=== PATIENT | female | born 1935 | race African-American/Black ===

== ENCOUNTER 2016-08-18 19:34 | Inpatient (IN) | payer MEDICARE, MEDICAID ==
--- NOTE | 2016-08-18 20:04 | ER Document Report ---
ED General - General Stated Complaint: ALTERED MENTAL STATUS Time seen by provider: 20:01 Information source: Emergency Med Personnel TRAVEL OUTSIDE OF THE [place] IN LAST 30 DAYS: No - HPI Patient complains to provider of: altered mental status Onset: This evening Onset/Duration: Persistent Associated symptoms: None Notes: Patient is an 81-year-old female sent from [facility] for change in mental status that was noted this evening, patient has a history of dementia and is nonverbal and cannot provide any further details - Related Data Allergies/Adverse Reactions: No Known Allergies Allergy (Verified 10/25/13 10:00) Past Medical History - General Information source: Emergency Med Personnel - Social History Smoking Status: Unknown if Ever Smoked Family History: Reviewed & Not Pertinent Pulmonary Medical History: Denies: Hx Tuberculosis Neurological Medical History: Denies: Hx Seizures Endocrine Medical History: Reports: Hx Diabetes Mellitus Type 2 Musculoskeltal Medical History: Reports Hx Arthritis Psychiatric Medical History: Reports: Hx Dementia, Hx Depression Past Surgical History: Reports: Hx Hysterectomy - Immunizations Hx Diphtheria, Pertussis, Tetanus Vaccination: No Review of Systems - Review of Systems -: Yes ROS unobtainable due to patient's medical condition Physical Exam - Vital signs Vitals: Pulse Resp BP Pulse Ox 140 H 23 H 167/109 H 96 08/18/16 19:50 08/18/16 19:50 08/18/16 19:50 08/18/16 19:50 Interpretation: Hypertensive, Tachycardic - General In distress: None - HEENT Head: Normocephalic, Atraumatic Eyes: Normal Conjunctiva: Normal Eyelashes: Normal Pupils: PERRL Mucous membranes: Dry - Respiratory Respiratory status: No respiratory distress Chest status: Nontender Breath sounds: Normal Chest palpation: Normal - Cardiovascular Rhythm: Regular, Tachycardia - Abdominal Inspection: Normal Distension: No distension Bowel sounds: Normal Tenderness: Nontender Organomegaly: No organomegaly - Back Back: Normal - Extremities General upper extremity: Normal inspection General lower extremity: Edema - Neurological [place] Coma Scale Eye Opening: Spontaneous [place] Coma Scale Verbal: None [place] Coma Scale Motor: Withdraws to Pain [place] Coma Scale Total: 9 - Skin Skin Temperature: Warm Skin Moisture: Dry Skin Color: Normal Course - Re-evaluation Re-evalutation: 08/19/16 02:48 Patient vital signs improved, she was able to answer 1 question on evaluation, she has good perfusion to extremities at this point in time, she has been admitted to the hospitalist service for sepsis, likely from a urinary tract infection - Vital Signs Vital signs: Temp Pulse Resp BP Pulse Ox 97.5 F 140 H 24 H 134/68 H 95 08/18/16 20:27 08/18/16 19:50 08/19/16 04:01 08/19/16 04:01 08/19/16 02:01 - Laboratory Result Diagrams: 08/19/16 02:54 08/19/16 02:54 Laboratory results interpreted by me: 08/18/16 08/18/16 08/18/16 20:48 21:38 21:38 WBC 19.0 H RDW 14.1 H Seg Neuts % (Manual) 94 H Lymphocytes % (Manual) 2 L Monocytes % (Manual) 1 L Abs Neuts (Manual) 18.4 H Abs Lymphs (Manual) 0.4 L VBG pH Sodium 145.5 H Glucose 276 H Lactic Acid Alkaline Phosphatase 144 H Urine Protein >=500 H Urine Glucose (UA) 150 H Urine Ketones TRACE H Urine Blood SMALL H Urine Urobilinogen 2.0 H Ur Leukocyte Esterase LARGE H 08/18/16 08/18/16 21:38 21:38 WBC RDW Seg Neuts % (Manual) Lymphocytes % (Manual) Monocytes % (Manual) Abs Neuts (Manual) Abs Lymphs (Manual) VBG pH 7.23 L Sodium Glucose Lactic Acid 7.2 H Alkaline Phosphatase Urine Protein Urine Glucose (UA) Urine Ketones Urine Blood Urine Urobilinogen Ur Leukocyte Esterase - Diagnostic Test Radiology reviewed: Image reviewed, Reports reviewed - EKG Interpretation by Me EKG shows normal: Sinus rhythm Rate: Tachycardia [place]/QRS: LAHB/LAFB When compared to previous EKG there are: No significant change Critical Care Note - Critical Care Note Total time excluding time spent on procedures (mins): 60 Comments: Patient arrived with signs and symptoms consistent with sepsis, tachycardic, workup consistent with sepsis, requiring admission to the [facility] Discharge - Discharge Clinical Impression: Sepsis Qualifiers: Sepsis type: sepsis due to unspecified organism Qualified Code(s): A41.9 - Sepsis, unspecified organism Urinary tract infection Qualifiers: Urinary tract infection type: site unspecified Hematuria presence: without hematuria Qualified Code(s): N39.0 - Urinary tract infection, site not specified Condition: Serious Disposition: ADMITTED INPATIENT Admitting Provider: Hospitalist Unit Admitted: [facility]
[2016-08-18] MEDS ORDERED: NORMAL SALINE 1000 ML 1,000 ML IV PRN ×3 (20:31→22:54)
[2016-08-18 21:15] LABS: APPEARANCE,URINE CLOUDY; BILIRUBIN,URINE NEGATIVE (NEGATIVE); GLUCOSE, URINE 150 mg/dL (NEGATIVE); KETONES,URINE TRACE mg/dL (NEGATIVE); LEUKOCYTE ESTERASE,URINE LARGE (NEGATIVE); NITRITE,URINE NEGATIVE (NEGATIVE); PROTEIN,URINE >=500 mg/dL (NEGATIVE)
--- NOTE | 2016-08-18 21:49 | EKG REPORT ---
SEVERITY:- ABNORMAL ECG - SINUS TACHYCARDIA VENTRICULAR PREMATURE COMPLEX LEFT ANTERIOR FASCICULAR BLOCK NONSPECIFIC T ABNORMALITIES, LATERAL LEADS : Confirmed by: Aj Lopez 18-Aug-2016 21:48:39
[2016-08-18 21:53] LABS: VENOUS BLOOD BASE EXCESS -6.9 mmol/L; VENOUS BLOOD HCO3 20.9 mmol/L (20-32); VENOUS BLOOD PCO2 50.7 mmHg (35-63); VENOUS BLOOD PH 7.23 (7.30-7.42)
[2016-08-18] MEDS ORDERED: LEVOFLOXACIN 750 MG/D5W RTU 150 ML IV ONE (21:56)
[2016-08-18 22:05] LABS: HEMATOCRIT 39.9 % (36.0-47.0); HEMOGLOBIN 13.1 g/dL (12.0-15.5); HGB HCT DIFFERENCE -0.6; MEAN CORPUSCULAR HEMOGLOBIN 28.4 pg (27.0-33.4); MEAN CORPUSCULAR VOLUME 86 fl (80-97); RED BLOOD COUNT 4.63 10^6/uL (3.72-5.28); RED CELL DISTRIBUTION WIDTH 14.1 % (11.5-14.0)
[2016-08-18 22:09] LABS: ALANINE AMINOTRANSFERASE 24 U/L (9-52); ALKALINE PHOSPHATASE 144 U/L (38-126); ANION GAP 17 (5-19); ASPARTATE AMINO TRANSFERASE 31 U/L (14-36); BILIRUBIN,TOTAL 1.1 mg/dL (0.2-1.3); BLOOD UREA NITROGEN 19 mg/dL (7-20); CALCIUM 9.6 mg/dL (8.4-10.2); CARBON DIOXIDE 23 mmol/L (22-30); CHLORIDE 106 mmol/L (98-107); CREATINE KINASE 64 U/L (30-135); CREATININE RESULT 0.71 mg/dL (0.52-1.25); GLUCOSE 276 mg/dL (75-110); POTASSIUM 3.7 mmol/L (3.6-5.0); SODIUM 145.5 mmol/L (137-145); TOTAL PROTEIN 7.2 g/dL (6.3-8.2)
[2016-08-18 22:17] LABS: BAND NEUTROPHILS % (MANUAL) 3 % (3-5); BASOPHILS % (MANUAL) 0 % (0-2); EOSINOPHILS % (MANUAL) 0 % (0-6); LYMPHOCYTES % (MANUAL) 2 % (13-45); TOTAL CELLS COUNTED 100
[2016-08-18 22:18] LABS: ANISOCYTOSIS SLIGHT; PLATELET CLUMPS PRESENT; RBC MORPHOLOGY COMMENT NORMO-CYTIC/CHROMIC
[2016-08-18 22:21] LABS: CREATINE KINASE MB 3.75 ng/mL (<4.55)
[2016-08-18 22:29] LABS: TROPONIN I 0.899 ng/mL
[2016-08-18] MEDS ORDERED: BISACODYL 10 MG SUPP.RECT PR SCH (23:45)
[2016-08-18] MEDS ORDERED: POLYVINYL ALCOHOL 1.4% OPH SOLN 15 ML OU PRN (23:46)
[2016-08-18] MEDS ORDERED: ACETAMINOPHEN 650 MG SUPP.RECT PR PRN (23:47)
[2016-08-19 03:06] LABS: HEMATOCRIT 37.4 % (36.0-47.0); HEMOGLOBIN 12.2 g/dL (12.0-15.5); HGB HCT DIFFERENCE -0.8; MEAN CORPUSCULAR HEMOGLOBIN 28.2 pg (27.0-33.4); MEAN CORPUSCULAR HGB CONC 32.7 g/dL (32.0-36.0); MEAN CORPUSCULAR VOLUME 86 fl (80-97); RED BLOOD COUNT 4.35 10^6/uL (3.72-5.28); RED CELL DISTRIBUTION WIDTH 14.1 % (11.5-14.0); WHITE BLOOD COUNT 17.3 10^3/uL (4.0-10.5)
[2016-08-19 03:25] LABS: ANION GAP 15 (5-19); BLOOD UREA NITROGEN 17 mg/dL (7-20); CALCIUM 8.7 mg/dL (8.4-10.2); CARBON DIOXIDE 21 mmol/L (22-30); CHLORIDE 110 mmol/L (98-107); CREATININE RESULT 0.62 mg/dL (0.52-1.25); GLUCOSE 251 mg/dL (75-110); POTASSIUM 3.9 mmol/L (3.6-5.0); SODIUM 145.7 mmol/L (137-145)
[2016-08-19 03:27] LABS: BAND NEUTROPHILS % (MANUAL) 2 % (3-5); BASOPHILS % (MANUAL) 0 % (0-2); EOSINOPHILS % (MANUAL) 0 % (0-6); LYMPHOCYTES % (MANUAL) 2 % (13-45); TOTAL CELLS COUNTED 100
[2016-08-19 03:30] LABS: TOXIC GRANULATION 1+
[2016-08-19 03:31] LABS: ANISOCYTOSIS SLIGHT
[2016-08-19] MEDS: NORMAL SALINE 1000 ML 1,000 ML IV SCH ×2 (04:45→09:54)
--- NOTE | 2016-08-19 07:28 | PDOC H&P ---
History of Present Illness Admission Date/PCP: 08/18/16 23:47 BITA MEANS Patient complains of: Altered mental status History of Present Illness: J[address] is a 81 year old female with a history of advanced dementia and nonverbal at baseline in bedbound state, noted by custodial staff to have altered mental status brought to the emergency room for evaluation she's found to have leukocytosis, fever, hypotension and a UA suggestive of urinary tract infection. She is nonverbal unable to provide history. She is started on empiric antibiotics IV fluids referred to the hospitalist for admission CODE STATUS verified to be DO NOT RESUSCITATE Past Medical History Pulmonary Medical History: Denies: Tuberculosis Neurological Medical History: Denies: Seizures Endocrine Medical History: Reports: Diabetes Mellitus Type 2 Musculoskeltal Medical History: Reports: Arthritis Psychiatric Medical History: Reports: Dementia, Depression Past Surgical History Past Surgical History: Reports: Hysterectomy Social History Information Source: REPLACED BY [facility] Records Smoking Status: Unknown if Ever Smoked Frequency of Alcohol Use: None Hx Recreational Drug Use: No Hx Prescription Drug Abuse: No - Advance Directive Resuscitation Status: Do Not Resuscitate Family History Family History: Other - Unobtainable Parental Family History Reviewed: No - unobtainable Children Family History Reviewed: NA Sibling(s) Family History Reviewed.: NA Medication/Allergy Home Medications: Bisacodyl [Dulcolax 10 mg Supp.rect] 10 mg NE DAILYP #0 supp.rect 06/16/14 Cyanocobalamin (Vitamin B-12) [Vitamin B-12 SL 2500 mcg Tablet] 2,500 mcg SL DAILY #0 tab.subl 06/16/14 Docusate Sodium [Colace 100 mg Capsule] 100 mg PO BID #0 capsule 06/16/14 Folic Acid [Folvite 1 mg Tablet] 1 mg PO DAILY #0 tablet 06/16/14 Glyburide [Diabeta 2.5 mg Tablet] 2.5 mg PO AC #0 tablet 06/16/14 Insulin Lispro [Humalog Insulin (Lispro) 100 unit/mL] 0 unit SUBCUT ACHSP PRN # 0 unit 06/16/14 Lansoprazole [Prevacid 30 mg Odt Tablet] 30 mg PO BIDACBS #0 tab.rap.dr Mirtazapine [Remeron 15 mg Tablet] 7.5 mg PO QHS #0 tablet 06/16/14 Polyvinyl Alcohol [Liquitears 1.4% Ophth Soln 15 ml] 1 drop OU QIDP PRN #0 bottle 06/16/14 Allergies/Adverse Reactions: No Known Allergies Allergy (Verified 10/25/13 10:00) Review of Systems ROS unobtainable: Due to mental status Physical Exam Vital Signs: Temp Pulse Resp BP Pulse Ox 97.5 F 140 H 25 H 145/97 H 95 08/18/16 20:27 08/18/16 19:50 08/19/16 07:01 08/19/16 07:01 08/19/16 02:01 General appearance: PRESENT: disheveled, mild distress, thin Head exam: PRESENT: atraumatic, normocephalic Eye exam: PRESENT: conjunctiva pink, EOMI, PERRLA. ABSENT: scleral icterus Ear exam: PRESENT: normal external ear exam Mouth exam: PRESENT: dry mucosa Neck exam: ABSENT: carotid bruit, JVD, lymphadenopathy, thyromegaly Respiratory exam: PRESENT: clear to auscultation lucy. ABSENT: rales, rhonchi, wheezes Cardiovascular exam: PRESENT: RRR. ABSENT: diastolic murmur, rubs, systolic murmur Pulses: PRESENT: normal dorsalis pedis pul Vascular exam: PRESENT: normal capillary refill GI/Abdominal exam: PRESENT: normal bowel sounds, soft. ABSENT: distended, guarding, mass, organolmegaly, rebound, tenderness Rectal exam: PRESENT: deferred Extremities exam: PRESENT: +1 edema, other - Severe peripheral vascular disease with chronic changes with feet in extensor contraction Musculoskeletal exam: PRESENT: other - Bilateral ankle deformity Neurological exam: PRESENT: altered. ABSENT: oriented to person, oriented to place, oriented to time, CN II-XII grossly intact Psychiatric exam: PRESENT: appropriate affect, normal mood. ABSENT: homicidal ideation, suicidal ideation Skin exam: PRESENT: dry, intact, warm. ABSENT: cyanosis, rash Results Laboratory Results: 08/19/16 02:54 08/19/16 02:54 08/19/16 08/19/16 08/19/16 02:54 02:54 02:54 WBC 17.3 H RBC 4.35 Hgb 12.2 Hct 37.4 MCV 86 MCH 28.2 MCHC 32.7 RDW 14.1 H Plt Count 153 Seg Neutrophils % Not Reportable Lymphocytes % Not Reportable Monocytes % Not Reportable Eosinophils % Not Reportable Basophils % Not Reportable Absolute Neutrophils Not Reportable Absolute Lymphocytes Not Reportable Absolute Monocytes Not Reportable Absolute Eosinophils Not Reportable Absolute Basophils Not Reportable Sodium 145.7 H Potassium 3.9 Chloride 110 H Carbon Dioxide 21 L Anion Gap 15 BUN 17 Creatinine 0.62 Est GFR ( Amer) > 60 Est GFR (Non-Af Amer) > 60 Glucose 251 H Lactic Acid 6.0 H Calcium 8.7 Impressions: Chest X-Ray 08/18/16 19:47 IMPRESSION: NO ACUTE RADIOGRAPHIC FINDING IN THE CHEST. Assessment & Plan - Diagnosis (1) Sepsis Qualifiers: Sepsis type: sepsis due to unspecified organism Qualified Code(s): A41.9 - Sepsis, unspecified organism Is this a current diagnosis for this admission?: YesPlan: Secondary to UTI, possible bacteremia blood and urine cultures pending empiric antibiotics IV fluid challenge and supportive measures (2) Urinary tract infection Qualifiers: Urinary tract infection type: site unspecified Hematuria presence: without hematuria Qualified Code(s): N39.0 - Urinary tract infection, site not specified Is this a current diagnosis for this admission?: YesPlan: Please see #1 (3) ARF (acute renal failure) Is this a current diagnosis for this admission?: YesPlan: Secondary to sepsis please see #1 attempt to correct the underlying cause with reevaluate chemistry avoiding nephrotoxic meds and doses (4) Dementia Qualifiers: Dementia type: Alzheimer's disease Is this a current diagnosis for this admission?: YesPlan: End-stage dementia doubting significant benefit of aggressive measures strongly consider comfort measures only if lack of improvement over the next 24 hours - Time Time Spent: 50 to 70 Minutes
[2016-08-19] MEDS: CEFTRIAXONE 1 GM/D5W RTU 1 GM/50 ML RTUPB IV SCH ×2 (09:53→15:02)
[2016-08-19] MEDS: DOCUSATE SODIUM 100 MG CAPSULE PO SCH ×3 (09:55→15:02)
[2016-08-19] MEDS ORDERED: DEXTROSE 40% GEL 15 GM TUBE PO PRN ×2 (13:50)
[2016-08-19] MEDS ORDERED: DEXTROSE 50%-WATER 25 GM/50 ML DISP.SYRIN IV PRN ×2 (13:50)
[2016-08-19] MEDS ORDERED: GLUCAGON,HUMAN RECOMB 1 MG INJ IM PRN (13:50)
--- NOTE | 2016-08-19 13:50 | PDOC PROGRESS REPORT ---
Subjective Progress Note for:: 08/19/16 Subjective:: Patient will open her eyes but will not respond in any way. Physical Exam Vital Signs: Temp Pulse Resp BP Pulse Ox 98.5 F 100 14 131/81 H 98 08/19/16 12:08 08/19/16 12:08 08/19/16 12:08 08/19/16 12:08 08/19/16 12:08 Intake & Output 08/18/16 08/19/16 08/20/16 06:59 06:59 06:59 Output Total 1100 Balance -1100 Weight 61.1 kg General appearance: PRESENT: no acute distress Eye exam: PRESENT: conjunctiva pink. ABSENT: scleral icterus Mouth exam: PRESENT: dry mucosa Neck exam: ABSENT: carotid bruit, JVD, lymphadenopathy, thyromegaly Respiratory exam: PRESENT: clear to auscultation lucy. ABSENT: rales, rhonchi, wheezes Cardiovascular exam: PRESENT: RRR. ABSENT: diastolic murmur, rubs, systolic murmur GI/Abdominal exam: PRESENT: normal bowel sounds, soft. ABSENT: distended, guarding, mass, organolmegaly, rebound, tenderness Extremities exam: ABSENT: calf tenderness, clubbing Neurological exam: PRESENT: altered Psychiatric exam: PRESENT: flat affect Skin exam: PRESENT: dry, intact, warm. ABSENT: cyanosis, rash Results Laboratory Results: 08/19/16 02:54 08/19/16 02:54 08/19/16 08/19/16 08/19/16 02:54 02:54 02:54 WBC 17.3 H RBC 4.35 Hgb 12.2 Hct 37.4 MCV 86 MCH 28.2 MCHC 32.7 RDW 14.1 H Plt Count 153 Seg Neutrophils % Not Reportable Lymphocytes % Not Reportable Monocytes % Not Reportable Eosinophils % Not Reportable Basophils % Not Reportable Absolute Neutrophils Not Reportable Absolute Lymphocytes Not Reportable Absolute Monocytes Not Reportable Absolute Eosinophils Not Reportable Absolute Basophils Not Reportable Sodium 145.7 H Potassium 3.9 Chloride 110 H Carbon Dioxide 21 L Anion Gap 15 BUN 17 Creatinine 0.62 Est GFR ( Amer) > 60 Est GFR (Non-Af Amer) > 60 Glucose 251 H Lactic Acid 6.0 H Calcium 8.7 Impressions: Chest X-Ray 08/18/16 19:47 IMPRESSION: NO ACUTE RADIOGRAPHIC FINDING IN THE CHEST. Assessment & Plan - Diagnosis (1) Sepsis Qualifiers: Sepsis type: sepsis due to unspecified organism Qualified Code(s): A41.9 - Sepsis, unspecified organism Is this a current diagnosis for this admission?: YesPlan: Patient has sepsis most likely from a urinary tract infection. She is a DO NOT RESUSCITATE however we'll continue IV fluids and IV antibiotics. (2) Urinary tract infection Qualifiers: Urinary tract infection type: site unspecified Hematuria presence: without hematuria Qualified Code(s): N39.0 - Urinary tract infection, site not specified Is this a current diagnosis for this admission?: YesPlan: Patient is growing gram-negative rods from a urine culture. Will continue with the Rocephin. (3) ARF (acute renal failure) Is this a current diagnosis for this admission?: YesPlan: Creatinine has normalized. (4) Diabetes Is this a current diagnosis for this admission?: YesPlan: We'll continue with fingerstick blood sugars as well as sliding scale insulin. (5) Dementia Qualifiers: Dementia type: Alzheimer's disease Is this a current diagnosis for this admission?: YesPlan: Patient is nonverbal at baseline. - Time Time Spent with patient: 25-34 minutes - Inpatient Certification Medical Necessity: Need For IV Fluids, Need for IV Antibiotics
[2016-08-19] MEDS: MIRTAZAPINE 15 MG TABLET PO SCH ×2 (14:48→15:02)
[2016-08-19] MEDS: INSULIN REG, HUMAN 100 UNIT/ML 3 ML VIAL (PYX) SUBCUT PRN (23:39)
[2016-08-19] MEDS: NORMAL SALINE 1000 ML 1,000 ML IV PRN (23:39)
[2016-08-20] MEDS: NORMAL SALINE 1000 ML 1,000 ML IV PRN ×3 (06:10→21:13)
[2016-08-20 06:23] LABS: ABSOLUTE LYMPHOCYTES (AUTO) 1.2 10^3/uL (0.5-4.7); ABSOLUTE MONOCYTES (AUTO) 1.2 10^3/uL (0.1-1.4); ABSOLUTE NEUT (AUTO) 9.3 10^3/uL (1.7-8.2); BASOPHILS % (AUTO) 0.1 % (0-2); HEMATOCRIT 30.9 % (36.0-47.0); HEMOGLOBIN 10.3 g/dL (12.0-15.5); MEAN CORPUSCULAR HEMOGLOBIN 28.5 pg (27.0-33.4); MEAN CORPUSCULAR HGB CONC 33.3 g/dL (32.0-36.0); MEAN CORPUSCULAR VOLUME 86 fl (80-97); MONOCYTES % (AUTO) 10.1 % (3-13); RED BLOOD COUNT 3.62 10^6/uL (3.72-5.28); RED CELL DISTRIBUTION WIDTH 14.6 % (11.5-14.0); SEGMENTED NEUTROPHILS % (AUTO) 79.8 % (42-78); WHITE BLOOD COUNT 11.6 10^3/uL (4.0-10.5)
[2016-08-20] MEDS: INSULIN REG, HUMAN 100 UNIT/ML 3 ML VIAL (PYX) SUBCUT PRN (06:36)
[2016-08-20 06:45] LABS: ANION GAP 10 (5-19); BLOOD UREA NITROGEN 18 mg/dL (7-20); CALCIUM 8.7 mg/dL (8.4-10.2); CARBON DIOXIDE 23 mmol/L (22-30); CHLORIDE 114 mmol/L (98-107); CREATININE RESULT 0.68 mg/dL (0.52-1.25); GLUCOSE 157 mg/dL (75-110); POTASSIUM 3.8 mmol/L (3.6-5.0); SODIUM 146.7 mmol/L (137-145)
--- NOTE | 2016-08-20 11:17 | PDOC PROGRESS REPORT ---
Subjective Progress Note for:: 08/20/16 Subjective:: Patient will open her eyes but will not respond in any way. Physical Exam Vital Signs: Temp Pulse Resp BP Pulse Ox 99.6 F 115 H 14 117/41 L 100 08/20/16 08:00 08/20/16 08:00 08/20/16 08:00 08/20/16 08:00 08/20/16 08:00 Intake & Output 08/19/16 08/20/16 08/21/16 06:59 06:59 06:59 Intake Total 1943 Output Total 1400 Balance 543 Weight 63 kg General appearance: PRESENT: no acute distress Eye exam: PRESENT: conjunctiva pink. ABSENT: scleral icterus Mouth exam: PRESENT: moist, tongue midline Neck exam: ABSENT: JVD Respiratory exam: PRESENT: clear to auscultation lucy. ABSENT: rales, rhonchi, wheezes Cardiovascular exam: PRESENT: RRR. ABSENT: diastolic murmur, rubs, systolic murmur GI/Abdominal exam: PRESENT: normal bowel sounds, soft. ABSENT: distended, guarding, mass, organolmegaly, rebound, tenderness Extremities exam: PRESENT: pedal edema - Trace pedal edema. Neurological exam: PRESENT: other - Patient will open her eyes but will not interact otherwise. Psychiatric exam: PRESENT: other - Unable to assess. Skin exam: PRESENT: warm. ABSENT: abrasion Results Laboratory Results: 08/20/16 05:51 08/20/16 05:51 08/20/16 08/20/16 05:51 05:51 WBC 11.6 H RBC 3.62 L Hgb 10.3 L Hct 30.9 L MCV 86 MCH 28.5 MCHC 33.3 RDW 14.6 H Plt Count 129 L Seg Neutrophils % 79.8 H Lymphocytes % 10.0 L Monocytes % 10.1 Eosinophils % 0.0 Basophils % 0.1 Absolute Neutrophils 9.3 H Absolute Lymphocytes 1.2 Absolute Monocytes 1.2 Absolute Eosinophils 0.0 Absolute Basophils 0.0 Sodium 146.7 H Potassium 3.8 Chloride 114 H Carbon Dioxide 23 Anion Gap 10 BUN 18 Creatinine 0.68 Est GFR ( Amer) > 60 Est GFR (Non-Af Amer) > 60 Glucose 157 H Calcium 8.7 Impressions: Chest X-Ray 08/18/16 19:47 IMPRESSION: NO ACUTE RADIOGRAPHIC FINDING IN THE CHEST. Assessment & Plan - Diagnosis (1) Sepsis Qualifiers: Sepsis type: sepsis due to unspecified organism Qualified Code(s): A41.9 - Sepsis, unspecified organism Is this a current diagnosis for this admission?: YesPlan: Patient has sepsis most likely from a urinary tract infection. She is a DO NOT RESUSCITATE however we'll continue IV fluids and IV antibiotics. (2) Urinary tract infection Qualifiers: Urinary tract infection type: site unspecified Hematuria presence: without hematuria Qualified Code(s): N39.0 - Urinary tract infection, site not specified Is this a current diagnosis for this admission?: YesPlan: Patient is growing gram-negative rods from a urine culture. Will continue with the Rocephin. (3) ARF (acute renal failure) Is this a current diagnosis for this admission?: YesPlan: Creatinine has normalized. (4) Diabetes Is this a current diagnosis for this admission?: YesPlan: We'll continue with fingerstick blood sugars as well as sliding scale insulin. (5) Dementia Qualifiers: Dementia type: Alzheimer's disease Is this a current diagnosis for this admission?: YesPlan: Patient is nonverbal at baseline. - Time Time Spent with patient: 25-34 minutes - Inpatient Certification Medical Necessity: Need For IV Fluids, Need for IV Antibiotics
[2016-08-20] MEDS ORDERED: CEFTRIAXONE 1 GM/D5W RTU 1 GM/50 ML RTUPB IV ONE (13:00)
[2016-08-20] MEDS: DOCUSATE SODIUM 100 MG CAPSULE PO SCH (16:43)
[2016-08-21] MEDS: NORMAL SALINE 1000 ML 1,000 ML IV PRN (04:35)
[2016-08-21 07:50] LABS: ABSOLUTE LYMPHOCYTES (AUTO) 0.7 10^3/uL (0.5-4.7); ABSOLUTE MONOCYTES (AUTO) 0.6 10^3/uL (0.1-1.4); ABSOLUTE NEUT (AUTO) 8.8 10^3/uL (1.7-8.2); BASOPHILS % (AUTO) 0.1 % (0-2); EOSINOPHILS % (AUTO) 0.1 % (0-6); HEMATOCRIT 29.5 % (36.0-47.0); HEMOGLOBIN 9.7 g/dL (12.0-15.5); HGB HCT DIFFERENCE -0.4; LYMPHOCYTES % (AUTO) 7.1 % (13-45); MEAN CORPUSCULAR HGB CONC 32.9 g/dL (32.0-36.0); MEAN CORPUSCULAR VOLUME 88 fl (80-97); MONOCYTES % (AUTO) 5.5 % (3-13); RED BLOOD COUNT 3.35 10^6/uL (3.72-5.28); RED CELL DISTRIBUTION WIDTH 14.2 % (11.5-14.0); SEGMENTED NEUTROPHILS % (AUTO) 87.2 % (42-78); WHITE BLOOD COUNT 10.1 10^3/uL (4.0-10.5)
[2016-08-21 08:06] LABS: ANION GAP 15 (5-19); BLOOD UREA NITROGEN 22 mg/dL (7-20); CALCIUM 8.1 mg/dL (8.4-10.2); CARBON DIOXIDE 16 mmol/L (22-30); CHLORIDE 115 mmol/L (98-107); CREATININE RESULT 0.65 mg/dL (0.52-1.25); GLUCOSE 83 mg/dL (75-110); POTASSIUM 3.8 mmol/L (3.6-5.0); SODIUM 145.5 mmol/L (137-145)
[2016-08-21] MEDS: CEFTRIAXONE 1 GM/D5W RTU 1 GM/50 ML RTUPB IV SCH (09:44)
[2016-08-21] MEDS: DOCUSATE SODIUM 100 MG CAPSULE PO SCH ×2 (09:47→17:54)
--- NOTE | 2016-08-21 11:43 | PDOC PROGRESS REPORT ---
Subjective Progress Note for:: 08/21/16 Subjective:: Patient is more responsive today and will answer yes no questions. She denies any pain. Physical Exam Vital Signs: Temp Pulse Resp BP Pulse Ox 98.3 F 91 16 120/53 L 100 08/21/16 07:41 08/21/16 07:41 08/21/16 07:41 08/21/16 07:41 08/21/16 07:41 Intake & Output 08/20/16 08/21/16 08/22/16 06:59 06:59 06:59 Intake Total 1943 2092 0 Output Total 1400 600 Balance 543 1492 0 Weight 63 kg 64.2 kg General appearance: PRESENT: no acute distress Eye exam: PRESENT: conjunctiva pink. ABSENT: scleral icterus Mouth exam: PRESENT: moist, tongue midline Neck exam: ABSENT: JVD Respiratory exam: PRESENT: clear to auscultation lucy. ABSENT: rales, rhonchi, wheezes Cardiovascular exam: PRESENT: RRR. ABSENT: diastolic murmur, rubs, systolic murmur GI/Abdominal exam: PRESENT: normal bowel sounds, soft. ABSENT: distended, guarding, mass, organolmegaly, rebound, tenderness Extremities exam: ABSENT: calf tenderness, clubbing, pedal edema Neurological exam: PRESENT: awake, other - Patient has dementia. Psychiatric exam: PRESENT: flat affect Skin exam: PRESENT: dry, intact, warm. ABSENT: cyanosis, rash Results Laboratory Results: 08/21/16 07:22 08/21/16 07:22 08/21/16 08/21/16 07:22 07:22 WBC 10.1 RBC 3.35 L Hgb 9.7 L Hct 29.5 L MCV 88 MCH 29.0 MCHC 32.9 RDW 14.2 H Plt Count 100 L Seg Neutrophils % 87.2 H Lymphocytes % 7.1 L Monocytes % 5.5 Eosinophils % 0.1 Basophils % 0.1 Absolute Neutrophils 8.8 H Absolute Lymphocytes 0.7 Absolute Monocytes 0.6 Absolute Eosinophils 0.0 Absolute Basophils 0.0 Sodium 145.5 H Potassium 3.8 Chloride 115 H Carbon Dioxide 16 L Anion Gap 15 BUN 22 H Creatinine 0.65 Est GFR ( Amer) > 60 Est GFR (Non-Af Amer) > 60 Glucose 83 Calcium 8.1 L Impressions: Chest X-Ray 08/18/16 19:47 IMPRESSION: NO ACUTE RADIOGRAPHIC FINDING IN THE CHEST. Assessment & Plan - Diagnosis (1) Sepsis Qualifiers: Sepsis type: sepsis due to unspecified organism Qualified Code(s): A41.9 - Sepsis, unspecified organism Is this a current diagnosis for this admission?: YesPlan: Patient has sepsis from a urinary tract infection. She is growing Escherichia coli from her urine culture that is sensitive to the Rocephin. She has clinically improved and we will plan on discharge back to [facility] tomorrow. She is a DO NOT RESUSCITATE. (2) Urinary tract infection Qualifiers: Urinary tract infection type: site unspecified Hematuria presence: without hematuria Qualified Code(s): N39.0 - Urinary tract infection, site not specified Is this a current diagnosis for this admission?: YesPlan: Patient is growing Escherichia coli from a urine culture. Will continue with the Rocephin. (3) ARF (acute renal failure) Is this a current diagnosis for this admission?: YesPlan: Creatinine has normalized. (4) Diabetes Is this a current diagnosis for this admission?: YesPlan: We'll continue with fingerstick blood sugars as well as sliding scale insulin. (5) Dementia Qualifiers: Dementia type: Alzheimer's disease Is this a current diagnosis for this admission?: YesPlan: Patient is nonverbal at baseline. But is improved from yesterday and is answering yes no questions. - Time Time Spent with patient: 25-34 minutes - Inpatient Certification Medical Necessity: Need for IV Antibiotics - Plan Summary Plan Summary: We'll plan on discharge back to [facility] tomorrow.
--- NOTE | 2016-08-21 15:54 | PDOC TRANSFER SUMMARY ---
General - Admit/Disc Date/PCP Admission Date/Primary Care Provider: 08/18/16 23:47 BITA MEANS Discharge Date: 08/22/16 - Discharge Diagnosis (1) Sepsis Is this a current diagnosis for this admission?: YesSummary: Secondary to a urinary tract infection growing Escherichia coli (2) Urinary tract infection Is this a current diagnosis for this admission?: YesSummary: Secondary to Escherichia coli is resistant to Levaquin but sensitive to cephalosporins. We'll complete a total of 14 days of antibiotics. Being sent home on Ceftin twice a day for 10 days. (3) ARF (acute renal failure) Is this a current diagnosis for this admission?: YesSummary: Resolved. (4) Diabetes Is this a current diagnosis for this admission?: Yes (5) Dementia Is this a current diagnosis for this admission?: Yes - Additional Information Resuscitation Status: Do Not Resuscitate Discharge Diet: Diabetic Discharge Activity: Activity As Tolerated Home Medications: Cyanocobalamin (Vitamin B-12) [Vitamin B-12] 2,500 mcg PO DAILY 08/19/16 Dextrose [Glutose 40% Gel 15 gm Tube] 1 appful PO ASDIR PRN 08/19/16 Docusate Sodium [Colace 100 mg Capsule] 100 mg PO BID 08/19/16 Folic Acid 1 mg PO DAILY 08/19/16 Glyburide [Diabeta 2.5 mg Tablet] 2.5 mg PO DAILY 08/19/16 Insulin Lispro [Humalog] See Protocol SQ ASDIR PRN 08/19/16 Lansoprazole [Prevacid] 15 mg PO BID 08/19/16 Mirtazapine [Remeron 15 mg Tablet] 15 mg PO QHS 08/19/16 Rivaroxaban [Xarelto 10 mg Tablet] 10 mg PO DAILY 08/19/16 Zolpidem Tartrate [Ambien 5 mg Tablet] 5 mg PO QHS 08/19/16 Cefuroxime Axetil [Ceftin 500 mg Tablet] 1 tab PO BID #20 tablet 08/21/16 History of Present Illness Admission Date/PCP: 08/18/16 23:47 BITA MEANS History of Present Illness: JESSICA STRE[address] is a 81 year old female with a history of advanced dementia and nonverbal at baseline in bedbound state, noted by [facility] staff to have altered mental status brought to the emergency room for evaluation she's found to have leukocytosis, fever, hypotension and a UA suggestive of urinary tract infection. She is nonverbal unable to provide history. She is started on empiric antibiotics IV fluids referred to the hospitalist for admission CODE STATUS verified to be DO NOT RESUSCITATE Physical Exam Vital Signs: Temp Pulse Resp BP Pulse Ox 98.4 F 93 16 121/70 99 08/21/16 12:00 08/21/16 12:00 08/21/16 12:00 08/21/16 12:00 08/21/16 12:00 Intake & Output 08/20/16 08/21/16 08/22/16 06:59 06:59 06:59 Intake Total 1943 2092 0 Output Total 1400 600 Balance 543 1492 0 Weight 63 kg 64.2 kg General appearance: PRESENT: no acute distress Eye exam: PRESENT: conjunctiva pink. ABSENT: scleral icterus Mouth exam: PRESENT: moist, tongue midline Neck exam: ABSENT: carotid bruit, JVD, lymphadenopathy, thyromegaly Respiratory exam: PRESENT: clear to auscultation lucy. ABSENT: rales, rhonchi, wheezes Cardiovascular exam: PRESENT: RRR. ABSENT: diastolic murmur, rubs, systolic murmur Pulses: PRESENT: normal dorsalis pedis pul GI/Abdominal exam: PRESENT: normal bowel sounds, soft. ABSENT: distended, guarding, mass, organolmegaly, rebound, tenderness Extremities exam: ABSENT: calf tenderness, clubbing, pedal edema Neurological exam: PRESENT: awake, oriented to person. ABSENT: oriented to place, oriented to time, oriented to situation Psychiatric exam: PRESENT: flat affect Skin exam: PRESENT: dry, intact, warm. ABSENT: cyanosis, rash Results Laboratory Results: 08/21/16 07:22 08/21/16 07:22 08/21/16 08/21/16 07:22 07:22 WBC 10.1 RBC 3.35 L Hgb 9.7 L Hct 29.5 L MCV 88 MCH 29.0 MCHC 32.9 RDW 14.2 H Plt Count 100 L Seg Neutrophils % 87.2 H Lymphocytes % 7.1 L Monocytes % 5.5 Eosinophils % 0.1 Basophils % 0.1 Absolute Neutrophils 8.8 H Absolute Lymphocytes 0.7 Absolute Monocytes 0.6 Absolute Eosinophils 0.0 Absolute Basophils 0.0 Sodium 145.5 H Potassium 3.8 Chloride 115 H Carbon Dioxide 16 L Anion Gap 15 BUN 22 H Creatinine 0.65 Est GFR ( Amer) > 60 Est GFR (Non-Af Amer) > 60 Glucose 83 Calcium 8.1 L Impressions: Chest X-Ray 08/18/16 19:47 IMPRESSION: NO ACUTE RADIOGRAPHIC FINDING IN THE CHEST. Transfer Plan - Disposition Transfer Plan: Patient will be transferred to [facility] for long-term care on 2016 - Time Spent with Patient Time spent with patient: Greater than 30 Minutes Qualifiers PATEINT BEING DISCHARGED WITH ANY OF THE FOLLOWING DIAGNOSIS?: No Plan Discharge Plan: We will discharge to [facility] on 08/22/2016 Time Spent: Greater than 30 Minutes
[2016-08-21] MEDS: MIRTAZAPINE 15 MG TABLET PO SCH (22:54)
[2016-08-22] MEDS: NORMAL SALINE 1000 ML 1,000 ML IV PRN (02:15)
--- NOTE | 2016-08-22 09:33 | PDOC PROGRESS REPORT ---
Subjective Progress Note for:: 08/22/16 Subjective:: Voiced no complaints. Doing well. Prepared to be sent back to SNF today. Physical Exam Vital Signs: Temp Pulse Resp BP Pulse Ox 98.3 F 105 H 15 106/74 100 08/22/16 07:47 08/22/16 07:47 08/22/16 07:47 08/22/16 07:47 08/22/16 07:47 Intake & Output 08/21/16 08/22/16 08/23/16 06:59 06:59 06:59 Intake Total 2092 2338 Output Total 600 400 Balance 1492 1938 Weight 64.2 kg 64 kg General appearance: PRESENT: no acute distress, cooperative Head exam: PRESENT: normocephalic Eye exam: PRESENT: EOMI Mouth exam: PRESENT: moist, neck supple Neck exam: ABSENT: JVD Respiratory exam: PRESENT: clear to auscultation lucy. ABSENT: rhonchi, wheezes Cardiovascular exam: PRESENT: RRR. ABSENT: gallop GI/Abdominal exam: PRESENT: soft. ABSENT: distended, tenderness Neurological exam: PRESENT: alert, awake Psychiatric exam: ABSENT: agitated Focused psych exam: ABSENT: restlessness Skin exam: PRESENT: dry, warm. ABSENT: cyanosis Results Laboratory Results: 08/21/16 07:22 08/21/16 07:22 Impressions: Chest X-Ray 08/18/16 19:47 IMPRESSION: NO ACUTE RADIOGRAPHIC FINDING IN THE CHEST. Assessment & Plan - Diagnosis (1) Sepsis Qualifiers: Sepsis type: sepsis due to unspecified organism Qualified Code(s): A41.9 - Sepsis, unspecified organism Is this a current diagnosis for this admission?: Yes (2) Urinary tract infection Qualifiers: Urinary tract infection type: site unspecified Hematuria presence: without hematuria Qualified Code(s): N39.0 - Urinary tract infection, site not specified Is this a current diagnosis for this admission?: Yes (3) ARF (acute renal failure) Qualifiers: Acute renal failure type: unspecified Qualified Code(s): N17.9 - Acute kidney failure, unspecified Is this a current diagnosis for this admission?: Yes (4) Dementia Qualifiers: Dementia type: Alzheimer's disease Is this a current diagnosis for this admission?: Yes (5) Diabetes Qualifiers: Diabetes mellitus type: type 2 Diabetes mellitus complication status: with unspecified complications Diabetes mellitus halfway insulin use: unspecified 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 antibiotics. D/C IVF. Cont. transfer plan back to halfway care facility.
[2016-08-22 12:29] VITALS: BP 134/67
[2016-08-22] MEDS: CEFTRIAXONE 1 GM/D5W RTU 1 GM/50 ML RTUPB IV SCH (14:53)
[2016-08-22] MEDS: DOCUSATE SODIUM 100 MG CAPSULE PO SCH (14:53)
== END 2016-08-22 18:20 | DRG 872 ==
LOC: ER 19:34 → UNDOADMIN 23:18 → EH 23:18 → 4S 08-19 11:11
PROVIDERS: ADMIT Internal Medicine; ATTEND Internal Medicine
DX: A41.51 Sepsis due to Escherichia coli [E. coli] (principal); N39.0 Urinary tract infection, site not specified; N17.9 Acute kidney failure, unspecified; R65.20 Severe sepsis without septic shock; E11.9 Type 2 diabetes mellitus without complications; B96.20 Unspecified Escherichia coli [E. coli] as the cause of diseases classified elsewhere; Z16.23 Resistance to quinolones and fluoroquinolones; F03.90 Unspecified dementia, unspecified severity, without behavioral disturbance, psychotic disturbance, mood disturbance, and anxiety; Z79.4 Long term (current) use of insulin; Z74.01 Bed confinement status; Z66 Do not resuscitate; Z90.710 Acquired absence of both cervix and uterus; M19.90 Unspecified osteoarthritis, unspecified site
CPT/HCPCS: 36415; 71010; 80048; 80053; 81001; 82550; 82553; 82803; 82962; 83605; 84484; 85025; 87040; 87086; 87088; 87186; 93005; 93010; 96365; 99291; J0696; J1815; J1956; J3490; J7030

== ENCOUNTER 2017-12-19 14:41 | Inpatient (IN) | payer MEDICARE, MEDICAID ==
--- NOTE | 2017-12-19 15:15 | ER Document Report ---
ED General - General Chief Complaint: Abnormal Lab Results Stated Complaint: ABNORMAL LABS Time Seen by Provider: 12/19/17 14:51 Mode of Arrival: Medic Information source: Outside Facility Records Cannot obtain history due to: Dementia Notes: Patient sent to the ED from nursing facility for hemoglobin of 7.8. Patient is non-verbal. Unable to obtain history. TRAVEL OUTSIDE OF THE [place] IN LAST 30 DAYS: No - HPI Onset: Just prior to arrival Notes: Patient is non-verbal. - Related Data Allergies/Adverse Reactions: No Known Allergies Allergy (Verified 10/25/13 10:00) Past Medical History - General Information source: Outside Facility Records Cannot obtain history due to: Dementia - Social History Smoking Status: Unknown if Ever Smoked Family History: Other - Unobtainable Pulmonary Medical History: Denies: Hx Tuberculosis Neurological Medical History: Denies: Hx Seizures Endocrine Medical History: Reports: Hx Diabetes Mellitus Type 2 Musculoskeltal Medical History: Reports Hx Arthritis Psychiatric Medical History: Reports: Hx Dementia, Hx Depression Past Surgical History: Reports: Hx Hysterectomy - Immunizations Hx Diphtheria, Pertussis, Tetanus Vaccination: No Review of Systems - Review of Systems -: Yes ROS unobtainable due to patient's medical condition - Non-verbal. Dementia. Physical Exam - Vital signs Vitals: Temp 97.8 F 12/19/17 15:19 Interpretation: Tachycardic - Notes Notes: PHYSICAL EXAMINATION: GENERAL: Well-appearing, well-nourished and in no acute distress. HEAD: Atraumatic. EYES: Pupils equal round and reactive to light, extraocular movements intact, conjunctiva are normal. ENT: Nares patent, oropharynx clear without exudates. Moist mucous membranes. NECK: Normal range of motion, supple without lymphadenopathy LUNGS: Breath sounds clear to auscultation bilaterally and equal. No wheezes rales or rhonchi. HEART: Tachycardic. Atrial fibrillation. ABDOMEN: Soft, nontender, nondistended abdomen. No guarding, no rebound. No masses appreciated. Rectal exam done. No hemorrhoids, melena, bright red blood per rectum. Softball size sacral pressure ulcer. Female : deferred Musculoskeletal: No pitting or edema. No cyanosis. Contractures to the bilateral upper extremities. NEUROLOGICAL: Cranial nerves grossly intact. SKIN: Warm, Dry, Softball size decubitus ulcer. - General General appearance: Alert, Other - Hx of dementia. Non-verbal. - HEENT Eyes: Normal Course - Re-evaluation Re-evalutation: 12/19/17 18:27 Patient was tachycardic, tachypneic on arrival. Labs and imaging obtained to evaluate for possible sepsis and GI bleed. Heme occult negative stool. Labs remarkable for elevated WBC. Hemoglobin 8.8. Increased from earlier today. CXR and UA are unremarkable for infection. Patient does have a softball size decubitus ulcer to the sacral area which is a possible source of infection. Blood cultures obtained. Given Vancomycin and Zosyn in the ED. EKGs show A. fib. No history of atrial fibrillation. Patient given 25mg of cardizem. I contacted Dr. Means. He says he does not admit prison patients and to contact the hospitalist. I contacted Dr. Mcqueen. She's agreeable with taking the admission. I spoke with Annette Wilkinson. She would like the patient admitted to a tele bed. Patient currently stable in the ED. - Vital Signs Vital signs: Temp Pulse Resp BP Pulse Ox 97.8 F 24 H 174/139 H 100 12/19/17 15:19 12/19/17 18:03 12/19/17 18:03 12/19/17 16:11 - Laboratory Result Diagrams: 12/19/17 16:08 12/19/17 16:08 Laboratory results interpreted by me: 12/19/17 12/19/17 12/19/17 16:08 16:08 16:08 WBC 12.2 H RBC 3.17 L Hgb 8.8 L Hct 27.3 L RDW 16.8 H Plt Count 520 H Seg Neutrophils % 82.0 H Lymphocytes % 8.5 L Absolute Neutrophils 10.0 H APTT 40.0 H Potassium 3.3 L Lactic Acid Total Protein 5.9 L Albumin 2.5 L Urine Glucose (UA) Urine Urobilinogen Urine Ascorbic Acid 12/19/17 12/19/17 16:08 17:15 WBC RBC Hgb Hct RDW Plt Count Seg Neutrophils % Lymphocytes % Absolute Neutrophils APTT Potassium Lactic Acid 3.8 H Total Protein Albumin Urine Glucose (UA) 150 H Urine Urobilinogen 2.0 H Urine Ascorbic Acid 40 H - EKG Interpretation by Me Rate: Tachycardia Rhythm: A.Fib [place]/QRS: LAHB/LAFB When compared to previous EKG there are: No significant change Discharge - Discharge Clinical Impression: Anemia Atrial fibrillation Qualifiers: Atrial fibrillation type: unspecified Qualified Code(s): I48.91 - Unspecified atrial fibrillation Dementia Qualifiers: Dementia type: unspecified type Dementia behavioral disturbance: without behavioral disturbance Qualified Code(s): F03.90 - Unspecified dementia without behavioral disturbance Decubital ulcer Qualifiers: Pressure ulcer location: buttock Pressure ulcer stage: unspecified pressure ulcer stage Laterality: unspecified laterality Qualified Code(s): L89.309 - Pressure ulcer of unspecified buttock, unspecified stage Condition: Stable Disposition: ADMITTED INPATIENT Admitting Provider: Hospitalist Unit Admitted: Telemetry Referrals: BITA MEANS MD [Primary Care Provider] - Follow up as needed
[2017-12-19] MEDS ORDERED: NORMAL SALINE 500 ML IV ONE ×2 (15:22→17:05)
--- NOTE | 2017-12-19 16:08 | RADIOLOGY REPORT (SQ) ---
EXAM DESCRIPTION: CHEST SINGLE VIEW COMPLETED DATE/TIME: 12/19/2017 3:53 pm REASON FOR STUDY: tachycardic COMPARISON: 08/18/2016. EXAM PARAMETERS: NUMBER OF VIEWS: One view. TECHNIQUE: Single frontal radiographic view of the chest acquired. RADIATION DOSE: NA LIMITATIONS: None. FINDINGS: LUNGS AND PLEURA: Chronic elevation of the left hemidiaphragm. No opacities, masses or pn eumothorax. No pleural effusion. MEDIASTINUM AND HILAR STRUCTURES: No masses. Contour normal. HEART AND VASCULAR STRUCTURES: Heart normal in size. Normal vasculature. BONES: No acute findings. HARDWARE: None in the chest. OTHER: No other significant finding. IMPRESSION: NO ACUTE RADIOGRAPHIC FINDING IN THE CHEST. TECHNICAL DOCUMENTATION: JOB ID: [id number] [employer]- All Rights Reserved Reading location - IP/workstation name: [email or web address]
[2017-12-19 16:41] LABS: ABSOLUTE MONOCYTES (AUTO) 1.1 10^3/uL (0.1-1.4); BASOPHILS % (AUTO) 0.2 % (0-2); HEMATOCRIT 27.3 % (36.0-47.0); HEMOGLOBIN 8.8 g/dL (12.0-15.5); LYMPHOCYTES % (AUTO) 8.5 % (13-45); MEAN CORPUSCULAR HEMOGLOBIN 27.7 pg (27.0-33.4); MEAN CORPUSCULAR HGB CONC 32.1 g/dL (32.0-36.0); MEAN CORPUSCULAR VOLUME 86 fl (80-97); MONOCYTES % (AUTO) 9.3 % (3-13); PLATELET COUNT 520 10^3/uL (150-450); RED BLOOD COUNT 3.17 10^6/uL (3.72-5.28); RED CELL DISTRIBUTION WIDTH 16.8 % (11.5-14.0); TOTAL CELLS COUNTED % (AUTO) 100 %; WHITE BLOOD COUNT 12.2 10^3/uL (4.0-10.5)
[2017-12-19 16:46] LABS: INTERNATIONAL RATION (INR) 1.13; PROTHROMBIN TIME 15.1 SEC (11.4-15.4)
[2017-12-19 17:10] LABS: ALANINE AMINOTRANSFERASE 18 U/L (9-52); ALBUMIN 2.5 g/dL (3.5-5.0); ALKALINE PHOSPHATASE 115 U/L (38-126); ANION GAP 13 (5-19); ASPARTATE AMINO TRANSFERASE 23 U/L (14-36); BILIRUBIN,DIRECT 0.4 mg/dL (0.0-0.4); BILIRUBIN,TOTAL 0.4 mg/dL (0.2-1.3); BLOOD UREA NITROGEN 12 mg/dL (7-20); CALCIUM 8.9 mg/dL (8.4-10.2); CARBON DIOXIDE 24 mmol/L (22-30); CHLORIDE 106 mmol/L (98-107); GLUCOSE 100 mg/dL (75-110); LIPASE 24.3 U/L (23-300); POTASSIUM 3.3 mmol/L (3.6-5.0); SODIUM 142.6 mmol/L (137-145); TOTAL PROTEIN 5.9 g/dL (6.3-8.2)
[2017-12-19] MEDS ORDERED: POTASSIUM CHLORIDE 10 MEQ TABLET.SA PO ONE (17:33)
[2017-12-19 17:53] LABS: APPEARANCE,URINE SLIGHTLY-CLOUDY; BILIRUBIN,URINE NEGATIVE (NEGATIVE); GLUCOSE, URINE 150 mg/dL (NEGATIVE); KETONES,URINE NEGATIVE (NEGATIVE); LEUKOCYTE ESTERASE,URINE NEGATIVE (NEGATIVE); NITRITE,URINE NEGATIVE (NEGATIVE); PROTEIN,URINE NEGATIVE (NEGATIVE)
[2017-12-19 17:57] LABS: COLOR,URINE YELLOW
[2017-12-19] MEDS ORDERED: DILTIAZEM HCL INJ 25 MG/5 ML VIAL IV ONE (18:06)
[2017-12-19] MEDS ORDERED: HYDRALAZINE HCL INJ/PF 20 MG/1 ML SDV IV PRN (18:22)
[2017-12-19] MEDS ORDERED: VANCOMYCIN HCL INJ 1000 MG VIAL IV ONE (18:26)
[2017-12-19] MEDS ORDERED: PIPERACILLIN/TAZOBACTAM 3.375 GM VIAL IV ONE (18:26)
[2017-12-19] MEDS ORDERED: ACETAMINOPHEN 325 MG TABLET PO PRN (18:58)
[2017-12-19] MEDS ORDERED: VANCOMYCIN HCL 0 MG in DEXTROSE 5%-WATER 250 ML IV NR (19:15)
[2017-12-19] MEDS ORDERED: DEXTROSE 40% GEL 15 GM TUBE PO PRN ×2 (19:22)
[2017-12-19] MEDS ORDERED: DEXTROSE 50%-WATER 25 GM/50 ML DISP.SYRIN IV PRN ×2 (19:22)
[2017-12-19] MEDS ORDERED: INSULIN REG, HUMAN 100 UNIT/ML 3 ML VIAL (PYX) SUBCUT PRN (19:22)
[2017-12-19] MEDS ORDERED: GLUCAGON,HUMAN RECOMB 1 MG INJ IM PRN (19:22)
--- NOTE | 2017-12-19 19:23 | PDOC H&P ---
History of Present Illness Admission Date/PCP: 12/19/17 18:44 BITA MEANS Patient complains of: Sent to ER by Primary MD for Anemia. She has advanced dementia History of Present Illness: JESSICA STRE[address] is a 82 year old female who was sent to the emergency room by her primary care physician for evaluation of anemia. In the emergency room the patient was found to be in atrial fibrillation with rapid ventricular response. She also had hypertensive urgency and she was referred for admission. The patient herself can only answer a few questions. She has advanced dementia at baseline. She also has a history of diabetes mellitus and depression. Past Medical History Cardiac Medical History: Denies: Atrial Fibrillation Pulmonary Medical History: Reports: None Denies: Tuberculosis EENT Medical History: Reports: None Neurological Medical History: Denies: Seizures Endocrine Medical History: Reports: Diabetes Mellitus Type 2 Renal/ Medical History: Reports: None Malignancy Medical History: Reports: None Musculoskeltal Medical History: Reports: Arthritis Skin Medical History: Reports: None Psychiatric Medical History: Reports: Dementia, Depression Traumatic Medical History: Reports: None Hematology: Reports: Anemia Infectious Medical History: Reports: None Past Surgical History Past Surgical History: Reports: Hysterectomy Social History Information Source: [facility] Records Lives with: Skilled Nursing Smoking Status: Unknown if Ever Smoked Frequency of Alcohol Use: None Hx Recreational Drug Use: No Hx Prescription Drug Abuse: No - Advance Directive Resuscitation Status: Do Not Resuscitate Family History Family History: Other - Unobtainable Parental Family History Reviewed: Yes Children Family History Reviewed: Yes Sibling(s) Family History Reviewed.: Yes Medication/Allergy Allergies/Adverse Reactions: No Known Allergies Allergy (Verified 10/25/13 10:00) Review of Systems ROS unobtainable: Due to mental status Physical Exam Vital Signs: Temp Pulse Resp BP Pulse Ox 97.8 F 24 H 174/139 H 100 12/19/17 15:19 12/19/17 18:03 12/19/17 18:03 12/19/17 16:11 General appearance: PRESENT: thin, other - She is awake and alert and answers simple questions. She is clearly quite confused. She is significantly ill- appearing and cachectic Head exam: PRESENT: atraumatic, normocephalic Eye exam: PRESENT: conjunctiva pink, EOMI, PERRLA. ABSENT: scleral icterus Ear exam: PRESENT: normal external ear exam Mouth exam: PRESENT: dry mucosa Neck exam: ABSENT: carotid bruit, JVD, lymphadenopathy, thyromegaly Respiratory exam: PRESENT: other - Her lungs sound fairly clear anteriorly. She will not cooperate for an exam Cardiovascular exam: PRESENT: irregular rhythm, tachycardia GI/Abdominal exam: PRESENT: normal bowel sounds, soft. ABSENT: distended, guarding, mass, organolmegaly, rebound, tenderness Rectal exam: PRESENT: deferred Extremities exam: PRESENT: other - The patient has contractures in all 4 of her extremities. She has venous stasis changes to her lower extremities bilaterally. She has a dry ulcer on the tip of her left great toe Musculoskeletal exam: ABSENT: ambulatory Neurological exam: PRESENT: alert, awake, oriented to person, oriented to place. ABSENT: oriented to time, oriented to situation Psychiatric exam: PRESENT: appropriate affect, normal mood. ABSENT: homicidal ideation, suicidal ideation Skin exam: PRESENT: other - The patient has a large stage III-IV decubitus ulcer sacrum. There is some necrotic tissue and drainage. Results Impressions: Chest X-Ray 12/19/17 15:32 IMPRESSION: NO ACUTE RADIOGRAPHIC FINDING IN THE CHEST. Assessment & Plan - Diagnosis (1) Atrial fibrillation with rapid ventricular response Is this a current diagnosis for this admission?: Yes Plan: The patient will be started on p.o. Cardizem. Her rates are running between 110 and 120. We will keep her on a remote monitor. We will treat her underlying infection and dehydration. We will hold off on full dose anticoagulation in light of her anemia. (2) Hypertensive urgency Is this a current diagnosis for this admission?: Yes Plan: The patient will be given IV hydralazine at this time. She will be started on p.o. Cardizem. We may need to add another agent in the morning. (3) Bacterial infection Is this a current diagnosis for this admission?: Yes Plan: Is unclear what her source of infection is but she does have leukocytosis. I suspect she has an infected stage IV decubitus ulcer. Urine culture is pending as well as blood cultures. We will start the patient on IV vancomycin and Zosyn. This will be the first full day of treatment (4) Anemia Is this a current diagnosis for this admission?: Yes (5) Sacral decubitus ulcer, stage IV Is this a current diagnosis for this admission?: Yes Plan: We will consult general surgery. This may need debridement. It would be nice to get some deep cultures. I am not going to obtain a superficial culture at this point (6) Hypokalemia Is this a current diagnosis for this admission?: Yes Plan: This was repleted by the ER. She will be receiving some potassium in her IV fluids. She will have a chemistry panel drawn in the morning (7) Diabetes mellitus Is this a current diagnosis for this admission?: Yes Plan: The patient will be placed on sliding scale insulin for now. I will hold her oral medications (8) Dementia Qualifiers: Dementia type: unspecified type Dementia behavioral disturbance: without behavioral disturbance Qualified Code(s): F03.90 - Unspecified dementia without behavioral disturbance Is this a current diagnosis for this admission?: Yes Plan: The patient clearly has advanced dementia at baseline. Will get speech therapy to evaluate her swallowing. I will try to get in touch with family members tomorrow. There are no family members at the bedside this evening (9) Bedbound Is this a current diagnosis for this admission?: Yes Plan: The patient should be turned every 2 hours - Time Time Spent: 50 to 70 Minutes - Inpatient Certification Medical Necessity: Significant Comorbidiites Make Outpatient Treatment Too Risky - The patient will be admitted as an inpatient to the hospital. I expect her hospitalization will span greater than 2 midnights. She is requiring parenteral antibiotics and fluids. She has a stage IV decubitus ulcer that needs evaluation., Need For IV Fluids, Need for IV Antibiotics, Other
[2017-12-19] MEDS ORDERED: PIPERACILLIN SODIUM/TAZOBACTAM 3.375 GM in NORMAL SALINE 100 ML IV SCH (21:00)
--- NOTE | 2017-12-19 22:38 | EKG REPORT ---
SEVERITY:- ABNORMAL ECG - ATRIAL FIBRILLATION, V-RATE 102-152 MULTIFORM VENTRICULAR PREMATURE COMPLEXES NONSPECIFIC IVCD WITH LAD : Confirmed by: Katey Wilson MD 19-Dec-2017 22:37:51
--- NOTE | 2017-12-19 22:39 | EKG REPORT ---
SEVERITY:- DEFECTIVE ECG - ATRIAL FIBRILLATION VERSUS SIMUS WITH BASELINE ARTIFACT.REPEAT EKG PAIRED VENTRICULAR PREMATURE COMPLEXES ABERRANT COMPLEX, POSSIBLY SUPRAVENTRICULAR LEFT ANTERIOR FASCICULAR BLOCK NONSPECIFIC T ABNORMALITIES, LATERAL LEADS : Confirmed by: Katey Wilson MD 19-Dec-2017 22:39:12
[2017-12-19] MEDS: MIRTAZAPINE 15 MG TABLET PO SCH (22:46)
[2017-12-19] MEDS: POTASSI CL 20 MEQ/NS 1L 1,000 ML IV PRN (22:52)
[2017-12-19] MEDS: PIPERACILLIN SODIUM/TAZOBACTAM 3.375 GM in NORMAL SALINE 100 ML IV SCH (23:26)
[2017-12-20] MEDS: PIPERACILLIN SODIUM/TAZOBACTAM 3.375 GM in NORMAL SALINE 100 ML IV SCH ×3 (05:39→23:18)
[2017-12-20] MEDS ORDERED: LANSOPRAZOLE 30 MG TAB.RAP.DR PO SCH (06:00)
[2017-12-20 06:42] LABS: ALANINE AMINOTRANSFERASE 23 U/L (9-52); ALBUMIN 2.1 g/dL (3.5-5.0); ALKALINE PHOSPHATASE 101 U/L (38-126); ANION GAP 8 (5-19); ASPARTATE AMINO TRANSFERASE 15 U/L (14-36); BILIRUBIN,DIRECT 0.4 mg/dL (0.0-0.4); BILIRUBIN,TOTAL 0.5 mg/dL (0.2-1.3); BLOOD UREA NITROGEN 9 mg/dL (7-20); CALCIUM 8.2 mg/dL (8.4-10.2); CARBON DIOXIDE 23 mmol/L (22-30); CHLORIDE 114 mmol/L (98-107); GLUCOSE 88 mg/dL (75-110); PHOSPHORUS 3.1 mg/dL (2.5-4.5); SODIUM 144.9 mmol/L (137-145); TOTAL PROTEIN 4.9 g/dL (6.3-8.2)
[2017-12-20 06:56] LABS: ABSOLUTE RETICS # 0.036 10^6/uL (0.028-0.122); HEMATOCRIT 22.7 % (36.0-47.0); MEAN CORPUSCULAR HEMOGLOBIN 27.6 pg (27.0-33.4); MEAN CORPUSCULAR HGB CONC 32.2 g/dL (32.0-36.0); MEAN CORPUSCULAR VOLUME 86 fl (80-97); PLATELET COUNT 357 10^3/uL (150-450); RED BLOOD COUNT 2.66 10^6/uL (3.72-5.28); RED CELL DISTRIBUTION WIDTH 16.6 % (11.5-14.0); RETICULOCYTE COUNT (AUTO) 1.36 % (0.66-2.85); WHITE BLOOD COUNT 12.7 10^3/uL (4.0-10.5)
[2017-12-20 07:01] LABS: IRON(TIBC) < 10.1 ug/dL (37-170); POTASSIUM 4.5 mmol/L (3.6-5.0)
[2017-12-20 07:10] LABS: HEMOGLOBIN 7.3 g/dL (12.0-15.5)
[2017-12-20 07:14] LABS: ABSOLUTE LYMPHOCYTES# (MANUAL) 0.6 10^3/uL (0.5-4.7); ANISOCYTOSIS 1+; BASOPHILS % (MANUAL) 0 % (0-2); EOSINOPHILS % (MANUAL) 0 % (0-6); LYMPHOCYTES % (MANUAL) 5 % (13-45); MONOCYTES % (MANUAL) 8 % (3-13); PLATELET COMMENT ADEQUATE; SEGMENTED NEUTROPHILS % (MAN) 87 % (42-78); TOTAL CELLS COUNTED 100; TOXIC GRANULATION SLIGHT
[2017-12-20 07:51] LABS: FOLATE > 20.00 ng/mL (>2.76)
[2017-12-20 08:38] LABS: HEMATOCRIT 22.2 % (36.0-47.0); MEAN CORPUSCULAR HEMOGLOBIN 27.5 pg (27.0-33.4); MEAN CORPUSCULAR HGB CONC 31.9 g/dL (32.0-36.0); MEAN CORPUSCULAR VOLUME 86 fl (80-97); PLATELET COUNT 365 10^3/uL (150-450); RED BLOOD COUNT 2.59 10^6/uL (3.72-5.28); RED CELL DISTRIBUTION WIDTH 16.6 % (11.5-14.0); WHITE BLOOD COUNT 12.4 10^3/uL (4.0-10.5)
[2017-12-20 08:42] LABS: HEMOGLOBIN 7.1 g/dL (12.0-15.5)
[2017-12-20] MEDS: MAGNESIUM SULFATE/D5W 1 GM/100 ML RTUPB IV SCH ×3 (08:47→13:01)
[2017-12-20] MEDS ORDERED: ENOXAPARIN SODIUM INJ 40 MG/0.4 ML DISP.SYRIN SUBCUT SCH (10:00)
[2017-12-20] MEDS ORDERED: CYANOCOBALAMIN 2500 MCG PO SCH (10:00)
[2017-12-20] MEDS ORDERED: DOCUSATE SODIUM 100 MG CAPSULE PO SCH (10:00)
[2017-12-20] MEDS: POTASSI CL 20 MEQ/NS 1L 1,000 ML IV PRN (11:03)
[2017-12-20] MEDS: CYANOCOBALAMIN (VITAMIN B-12) 1,000 MCG TABLET PO SCH (11:06)
[2017-12-20] MEDS: FOLIC ACID 1 MG TABLET PO SCH (11:06)
[2017-12-20] MEDS: DOCUSATE SODIUM 100 MG CAPSULE PO SCH (12:19)
[2017-12-20] MEDS ORDERED: NORMAL SALINE 250 ML IV PRN ×2 (12:51)
--- NOTE | 2017-12-20 12:51 | PDOC PROGRESS REPORT ---
Subjective Progress Note for:: 12/20/17 Subjective:: The patient is resting in her bed. She is able to answer a few questions but she is quite confused. She is able to tell me that she is having pain in both of her hips. She is asking if she can have an x-ray. Otherwise review of systems was unable to be obtained. She states she is feeling better than when she came into the hospital. Reason For Visit: ANEMIA, HYPERTENSIVE URGENCY Physical Exam Vital Signs: Temp Pulse Resp BP Pulse Ox 98.2 F 94 17 106/49 L 99 12/20/17 11:50 12/20/17 11:50 12/20/17 11:50 12/20/17 11:50 12/20/17 11:50 Intake & Output 12/19/17 12/20/17 12/21/17 06:59 06:59 06:59 Intake Total 800 Balance 800 Weight 52.8 kg General appearance: PRESENT: other - Thin cachectic ill-appearing 82-year-old -[place] female. She is resting comfortably in the bed in no acute distress Head exam: PRESENT: atraumatic Respiratory exam: PRESENT: clear to auscultation lcuy, other - This was an anterior exam. ABSENT: rales, rhonchi, wheezes Cardiovascular exam: PRESENT: RRR. ABSENT: diastolic murmur, rubs, systolic murmur GI/Abdominal exam: PRESENT: normal bowel sounds, soft. ABSENT: distended, guarding, mass, organolmegaly, rebound, tenderness Rectal exam: PRESENT: deferred Extremities exam: PRESENT: other - She has contractures in her upper extremities and lower extremities. No clubbing cyanosis or edema. Venous stasis changes to both of her lower extremities Musculoskeletal exam: PRESENT: tenderness - She is quite tender to palpation over both hips. Neurological exam: PRESENT: alert, awake, oriented to person, oriented to place. ABSENT: oriented to time, oriented to situation Psychiatric exam: PRESENT: appropriate affect, normal mood. ABSENT: homicidal ideation, suicidal ideation Skin exam: PRESENT: dry, intact, warm, other - Stage IV decubitus ulcer was not examined today. I did examine it yesterday. She also has an ulcer on her toe.. ABSENT: cyanosis, rash Results Laboratory Results: 12/20/17 08:11 12/20/17 05:23 12/19/17 12/20/17 12/20/17 21:17 05:23 05:23 WBC 12.7 H RBC 2.66 L Hgb 7.3 L Hct 22.7 L MCV 86 MCH 27.6 MCHC 32.2 RDW 16.6 H Plt Count 357 Seg Neutrophils % Not Reportable Lymphocytes % Not Reportable Monocytes % Not Reportable Eosinophils % Not Reportable Basophils % Not Reportable Absolute Neutrophils Not Reportable Absolute Lymphocytes Not Reportable Absolute Monocytes Not Reportable Absolute Eosinophils Not Reportable Absolute Basophils Not Reportable Retic Count (auto) 1.36 Absolute Retic 0.036 Sodium 144.9 Potassium 4.5 D Chloride 114 H Carbon Dioxide 23 Anion Gap 8 BUN 9 Creatinine 0.63 Est GFR ( Amer) > 60 Est GFR (Non-Af Amer) > 60 Glucose 88 Lactic Acid 1.6 Calcium 8.2 L Phosphorus 3.1 Magnesium 1.4 L Iron < 10.1 L TIBC 150 L % Saturation UNABLE TO CALCULATE Ferritin 560.00 H Total Bilirubin 0.5 AST 15 ALT 23 Alkaline Phosphatase 101 Total Protein 4.9 L Albumin 2.1 L Vitamin B12 > 1000.0 H Folate > 20.00 12/20/17 08:11 WBC 12.4 H RBC 2.59 L Hgb 7.1 L Hct 22.2 L MCV 86 MCH 27.5 MCHC 31.9 L RDW 16.6 H Plt Count 365 Seg Neutrophils % Lymphocytes % Monocytes % Eosinophils % Basophils % Absolute Neutrophils Absolute Lymphocytes Absolute Monocytes Absolute Eosinophils Absolute Basophils Retic Count (auto) Absolute Retic Sodium Potassium Chloride Carbon Dioxide Anion Gap BUN Creatinine Est GFR ( Amer) Est GFR (Non-Af Amer) Glucose Lactic Acid Calcium Phosphorus Magnesium Iron TIBC % Saturation Ferritin Total Bilirubin AST ALT Alkaline Phosphatase Total Protein Albumin Vitamin B12 Folate Impressions: Chest X-Ray 12/19/17 15:32 IMPRESSION: NO ACUTE RADIOGRAPHIC FINDING IN THE CHEST. Assessment & Plan - Diagnosis (1) Atrial fibrillation with rapid ventricular response Is this a current diagnosis for this admission?: Yes Plan: Resolved. Continue p.o. Cardizem. She is scheduled to have an echo today. (2) Hypertensive urgency Is this a current diagnosis for this admission?: Yes Plan: Resolved. (3) Bacterial infection Is this a current diagnosis for this admission?: Yes Plan: She will continue IV vancomycin and Zosyn. I think the most likely source for this infection is her sacral decubitus ulcer. Will await recommendations from general surgery. (4) Anemia Is this a current diagnosis for this admission?: Yes Plan: Her hemoglobin continues to decline. She tested negative for occult blood per [facility]. I will transfuse her 2 units of packed red blood cells today. (5) Sacral decubitus ulcer, stage IV Is this a current diagnosis for this admission?: Yes Plan: General surgery has been consulted for their recommendations. (6) Hypokalemia Is this a current diagnosis for this admission?: Yes Plan: Repleted and resolved (7) Diabetes mellitus Is this a current diagnosis for this admission?: Yes Plan: Stable (8) Dementia Qualifiers: Dementia type: unspecified type Dementia behavioral disturbance: without behavioral disturbance Qualified Code(s): F03.90 - Unspecified dementia without behavioral disturbance Is this a current diagnosis for this admission?: Yes Plan: The patient clearly has advanced dementia at baseline. Will get speech therapy to evaluate her swallowing. I will try to get in touch with family members. There are no family members at the bedside this evening (9) Bedbound Is this a current diagnosis for this admission?: Yes Plan: The patient should be turned every 2 hours (10) Hypomagnesemia Is this a current diagnosis for this admission?: Yes Plan: This will be repleted today and I will check a level in the morning. - Time Time Spent with patient: 25-34 minutes - Inpatient Certification Medical Necessity: Need For IV Fluids, Need for IV Antibiotics - Inpatient hospitalization remains necessary. The patient needs a blood transfusion today. She also needs evaluation by general surgery. She has improved with IV antibiotics and IV fluids. We will continue to replete electrolytes. Timing of disposition will be determined by her clinical course, Other
--- NOTE | 2017-12-20 17:22 | PDOC CONSULTATION ---
History of Present Illness Admission Date/PCP: 12/19/17 18:44 BITA MEANS Patient complains of: Back pain History of Present Illness: JESSICA STREET is a 82 year old female severely debilitated female, bedbound. Currently in the hospital for evaluation of anemia and atrial fib with rapid ventricular rate, noted with chronic large sacral decubitus ulcer. General surgery now being asked to evaluate this ulcer for possible debridement. Her rapid ventricular rate has been controlled with Cardizem drip. For her marked anemia she is undergoing blood transfusion. She is being allowed to eat. She has not been febrile nor hypotensive during her admission. But she was noted with mild leukocytosis. Past Medical History Cardiac Medical History: Denies: Atrial Fibrillation Pulmonary Medical History: Reports: None Denies: Tuberculosis EENT Medical History: Reports: None Neurological Medical History: Denies: Seizures Endocrine Medical History: Reports: Diabetes Mellitus Type 2 Renal/ Medical History: Reports: None Malignancy Medical History: Reports: None Musculoskeltal Medical History: Reports: Arthritis Skin Medical History: Reports: None Psychiatric Medical History: Reports: Dementia, Depression Traumatic Medical History: Reports: None Hematology: Reports: Anemia Infectious Medical History: Reports: None Past Surgical History Past Surgical History: Reports: Hysterectomy Social History Lives with: Longterm Smoking Status: Unknown if Ever Smoked Frequency of Alcohol Use: None Hx Recreational Drug Use: No Hx Prescription Drug Abuse: No - Advance Directive Resuscitation Status: Do Not Resuscitate Family History Family History: Other - Unobtainable Parental Family History Reviewed: No Children Family History Reviewed: No Sibling(s) Family History Reviewed.: No Medication/Allergy Home Medications: Cyanocobalamin (Vitamin B-12) [Vitamin B12] 2,500 mcg PO DAILY 12/19/17 Docusate Sodium [Colace 100 mg Capsule] 100 mg PO BID 12/19/17 Folic Acid [Folvite 1 mg Tablet] 1 mg PO DAILY 12/19/17 Glipizide [Glucotrol 5 mg Tablet] 2.5 mg PO DAILY 12/19/17 Insulin Aspart [Novolog Flexpen] 0 unit SQ .SLIDING SCALE 12/19/17 Mirtazapine [Remeron 15 mg Tablet] 15 mg PO QHS 12/19/17 Omeprazole 20 mg PO DAILY 12/19/17 Allergies/Adverse Reactions: No Known Allergies Allergy (Verified 10/25/13 10:00) Physical Exam Vital Signs: Temp Pulse Resp BP Pulse Ox 98.4 F 91 18 113/45 L 100 12/20/17 17:05 12/20/17 17:05 12/20/17 17:05 12/20/17 17:05 12/20/17 17:05 Intake & Output 12/19/17 12/20/17 12/21/17 06:59 06:59 06:59 Intake Total 800 100 Balance 800 100 Weight 52.8 kg General appearance: PRESENT: no acute distress, other - Cachectic Respiratory exam: PRESENT: clear to auscultation lucy Cardiovascular exam: PRESENT: irregular rhythm GI/Abdominal exam: PRESENT: other - Soft and nontender to palpation Extremities exam: PRESENT: other - Contractures noted in all 4 extremities Skin exam: PRESENT: other - Large sacral decubitus ulcer extending to the sacral fascia with scant amount of necrotic debris on the edges and scant drainage. No undrained pockets and no fluctuance. Results Laboratory Results: 12/20/17 08:11 12/20/17 05:23 12/19/17 12/20/17 12/20/17 21:17 05:23 05:23 WBC 12.7 H RBC 2.66 L Hgb 7.3 L Hct 22.7 L MCV 86 MCH 27.6 MCHC 32.2 RDW 16.6 H Plt Count 357 Seg Neutrophils % Not Reportable Lymphocytes % Not Reportable Monocytes % Not Reportable Eosinophils % Not Reportable Basophils % Not Reportable Absolute Neutrophils Not Reportable Absolute Lymphocytes Not Reportable Absolute Monocytes Not Reportable Absolute Eosinophils Not Reportable Absolute Basophils Not Reportable Retic Count (auto) 1.36 Absolute Retic 0.036 Sodium 144.9 Potassium 4.5 D Chloride 114 H Carbon Dioxide 23 Anion Gap 8 BUN 9 Creatinine 0.63 Est GFR ( Amer) > 60 Est GFR (Non-Af Amer) > 60 Glucose 88 Lactic Acid 1.6 Calcium 8.2 L Phosphorus 3.1 Magnesium 1.4 L Iron < 10.1 L TIBC 150 L % Saturation UNABLE TO CALCULATE Ferritin 560.00 H Total Bilirubin 0.5 AST 15 ALT 23 Alkaline Phosphatase 101 Total Protein 4.9 L Albumin 2.1 L Vitamin B12 > 1000.0 H Folate > 20.00 Blood Type Antibody Screen 12/20/17 12/20/17 08:11 13:22 WBC 12.4 H RBC 2.59 L Hgb 7.1 L Hct 22.2 L MCV 86 MCH 27.5 MCHC 31.9 L RDW 16.6 H Plt Count 365 Seg Neutrophils % Lymphocytes % Monocytes % Eosinophils % Basophils % Absolute Neutrophils Absolute Lymphocytes Absolute Monocytes Absolute Eosinophils Absolute Basophils Retic Count (auto) Absolute Retic Sodium Potassium Chloride Carbon Dioxide Anion Gap BUN Creatinine Est GFR ( Amer) Est GFR (Non-Af Amer) Glucose Lactic Acid Calcium Phosphorus Magnesium Iron TIBC % Saturation Ferritin Total Bilirubin AST ALT Alkaline Phosphatase Total Protein Albumin Vitamin B12 Folate Blood Type O POSITIVE Antibody Screen NEGATIVE Impressions: Chest X-Ray 12/19/17 15:32 IMPRESSION: NO ACUTE RADIOGRAPHIC FINDING IN THE CHEST. Assessment & Plan - Diagnosis (1) Decubital ulcer Qualifiers: Pressure ulcer location: buttock Pressure ulcer stage: stage 4 Laterality : unspecified laterality Qualified Code(s): L89.304 - Pressure ulcer of unspecified buttock, stage 4 Is this a current diagnosis for this admission?: Yes Plan: Patient has a large stage IV decubitus ulcer. But I do not think she is septic. There is no undrained pus and there is scant amount of the necrotic debris. She would benefit from debridement of the necrotic edges but he can wait until her clinical status has improved, that is after her transfusions and stabilization of her cardiac status. As far as long-term prognosis of this decubitus ulcer it is extremely poor in light of her poor nutritional status and her immobility.
--- NOTE | 2017-12-20 19:36 | XCELERA REPORT ---
[address] [address] Transthoracic Echocardiogram Report Name: JESSICA STREET Age: 82 yrs Gender: Female : 1935 Patient Status: Inpatient Patient Location: [address] [place] [address] Study Date: 12/20/2017 10:05 AM Procedure: A complete two-dimensional transthoracic echocardiogram was performed (2D, M-mode, spectral and color flow Doppler). The study was technically limited with all images being suboptimal in quality. Reason For Study: a fib Ordering Physician: AJ COMER Performed By: Nina Harris Interpretation Summary The study was technically limited with all images being suboptimal in quality. The left ventricular ejection fraction is preserved. Consider additional methods to assess LVEF such as MUGA scan, CTA heart, cardiac MRI, KIRILL, etc. if clinically indicated. The left ventricle is grossly normal size. There is borderline concentric left ventricular hypertrophy. The right ventricle is not well visualized secondary to technical limitations Right atrium not well visualized secondary to technical limitations The left atrial size is normal. There is no mitral valve stenosis. There is a trace to mild amount of mitral regurgitation There is no aortic valve stenosis There is a trace to mild amount of aortic regurgitation The tricuspid valve is not well visualized secondary to technical limitations The pulmonic valve is not well visualized. There is no pericardial effusion. Doppler Measurements & Calculations MV E max gopi: MV dec slope: Ao V2 max: LV V1 max P.2 cm/sec 358.9 cm/sec2 138.3 cm/sec 4.4 mmHg MV A max gopi: MV dec time: Ao max PG: LV V1 max: 103.3 cm/sec 0.22 sec 7.6 mmHg 105.1 cm/sec MV E/A: 0.78 Left Ventricle The left ventricle is grossly normal size. There is borderline concentric left ventricular hypertrophy. The left ventricular ejection fraction is preserved. Consider additional methods to assess LVEF such as MUGA scan, CTA heart, cardiac MRI, KIRILL, etc. if clinically indicated. Right Ventricle The right ventricle is not well visualized secondary to technical limitations. Atria Right atrium not well visualized secondary to technical limitations. The left atrial size is normal. Mitral Valve The mitral valve is not well visualized. There is no mitral valve stenosis. There is a trace to mild amount of mitral regurgitation. Aortic Valve The aortic valve opens well. There is no aortic valve stenosis. There is a trace to mild amount of aortic regurgitation. Tricuspid Valve The tricuspid valve is not well visualized secondary to technical limitations. Pulmonic Valve The pulmonic valve is not well visualized. Great Vessels The aortic root is not well visualized. The inferior vena cava was not well visualized. Effusions There is no pericardial effusion. : AJ COMER > Aj Comer
[2017-12-20] MEDS: MIRTAZAPINE 15 MG TABLET PO SCH (22:20)
--- NOTE | 2017-12-20 22:49 | PDOC CONSULTATION ---
Consultation Consult Date: 12/19/17 Attending physician:: DIONICIO GAMING Consult reason:: A FIB History of Present Illness Admission Date/PCP: 12/19/17 18:44 BITA MEANS Patient complains of: Generalised weakness History of Present Illness: JESSICA STREET is a 82 year old female who was sent to the emergency room by her primary care physician for evaluation of anemia. In the emergency room the patient was found to be in atrial fibrillation with rapid ventricular response. She also had hypertensive urgency and she was referred for admission. The patient herself can only answer a few questions. She has advanced dementia at baseline. She also has a history of diabetes mellitus and depression. Rewiew of EKG actually shows patient in SR with APCs Patient is a poor historian. She has underlying dementia. This history obtained by the hospitalist was reviewed. Patient could not add much to the history. Past Medical History Cardiac Medical History: Denies: Atrial Fibrillation Pulmonary Medical History: Reports: None Denies: Tuberculosis EENT Medical History: Reports: None Neurological Medical History: Denies: Seizures Endocrine Medical History: Reports: Diabetes Mellitus Type 2 Renal/ Medical History: Reports: None Malignancy Medical History: Reports: None Musculoskeltal Medical History: Reports: Arthritis Skin Medical History: Reports: None Psychiatric Medical History: Reports: Dementia, Depression Traumatic Medical History: Reports: None Hematology: Reports: Anemia Infectious Medical History: Reports: None Past Surgical History Past Surgical History: Reports: Hysterectomy Social History Lives with: Long-Term Smoking Status: Unknown if Ever Smoked Frequency of Alcohol Use: None Hx Recreational Drug Use: No Hx Prescription Drug Abuse: No - Advance Directive Resuscitation Status: Do Not Resuscitate Surrogate healthcare decision maker:: Patient's daughter is the surrogate decision maker, Patience Franz Family History Family History: Other - Unobtainable Parental Family History Reviewed: No Children Family History Reviewed: NA Sibling(s) Family History Reviewed.: NA Medication/Allergy Home Medications: Cyanocobalamin (Vitamin B-12) [Vitamin B12] 2,500 mcg PO DAILY 12/19/17 Docusate Sodium [Colace 100 mg Capsule] 100 mg PO BID 12/19/17 Folic Acid [Folvite 1 mg Tablet] 1 mg PO DAILY 12/19/17 Glipizide [Glucotrol 5 mg Tablet] 2.5 mg PO DAILY 12/19/17 Insulin Aspart [Novolog Flexpen] 0 unit SQ .SLIDING SCALE 12/19/17 Mirtazapine [Remeron 15 mg Tablet] 15 mg PO QHS 12/19/17 Omeprazole 20 mg PO DAILY 12/19/17 Allergies/Adverse Reactions: No Known Allergies Allergy (Verified 10/25/13 10:00) Physical Exam Vital Signs: Temp Pulse Resp BP Pulse Ox 97.8 F 24 H 106/63 100 12/19/17 15:19 12/19/17 19:01 12/19/17 19:01 12/19/17 19:55 Exam: GENERAL: well-nourished and in no acute distress. Patient is alert but not oriented to place time. She is oriented to person only. HEAD: Atraumatic, normocephalic. EYES: Pupils equal round and reactive to light, extraocular movements intact, sclera anicteric, conjunctiva are normal. ENT: TMs normal, nares patent, oropharynx clear without exudates. Moist mucous membranes. No oral ulcerations or bleeding gums noted NECK: supple without lymphadenopathy or JVD. Trachea is central. No cervical or axillary lymphadenopathy noted. Carotids are 2+ LUNGS: Breath sounds bibasilar fine crackles at bases. No significant dullness noted. CHEST: Palpation of chest wall shows no significant chest wall tenderness. 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 ABDOMEN: Soft, no significant tenderness appreciated, normoactive bowel sounds. No guarding, no rebound. No rigidity noted . No masses appreciated. EXTREMITIES: Pedal pulses are 1-2+, no calf tenderness noted, Trace + pedal edema noted. No clubbing or cyanosis. NEUROLOGICAL: Patient is alert but is not able to move much on command because of generalized weakness or previous muscle/orthopedic disorder. No facial asymmetry noted. PSYCH: Patient cannot participate in a neurologic and psych exam because of the patient's current mental status SKIN: No significant ecchymosis, rash, positive sacral decubiti noted. MUSCULOSKELETAL EXAM: No significant joint swelling noted. Patient is noted to have joint contractures involving both upper and lower extremity. Results Laboratory Results: 12/19/17 21:17 Lactic Acid 1.6 EKG Comments: Review of EKG shows sinus with frequent APCs, significant baseline artifact noted which makes interpretation somewhat difficult. Impressions: Chest X-Ray 12/19/17 15:32 IMPRESSION: NO ACUTE RADIOGRAPHIC FINDING IN THE CHEST. 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 insulin use: unspecified long-term insulin use status Diabetes mellitus complication status : with unspecified complications Qualified Code(s): E11.8 - Type 2 diabetes mellitus with unspecified complications Is this a current diagnosis for this admission?: Yes (3) Dementia Qualifiers: Dementia type: unspecified type Dementia behavioral disturbance: without behavioral disturbance Qualified Code(s): F03.90 - Unspecified dementia without behavioral disturbance Is this a current diagnosis for this admission?: Yes (4) Decubital ulcer Qualifiers: Pressure ulcer location: buttock Pressure ulcer stage: stage 4 Laterality : unspecified laterality Qualified Code(s): L89.304 - Pressure ulcer of unspecified buttock, stage 4 Is this a current diagnosis for this admission?: Yes - Notes Notes: No Afib, SR with APCs Patient's EKG and rhythm strips were evaluated. On my evaluation, I feel that patient mostly has sinus rhythm with frequent APCs and quite a few baseline artifacts. Feel that patient has intermittent sinus tachycardia. No atrial fibrillation noted. Will follow cardiac rhythm. Diabetes mellitus: We will leave management to hospitalist. Currently they are doing a good job. Dementia: Currently stable continue other medications. Decubitus ulcer: Patient noted to have a sacral decubitus ulcer. Will leave management to foreclosure specialist, nurses and other supportive staff. CODE STATUS : was discussed, patient remains . - Time Time Spent: 30 to 50 Minutes - CODE STATUS : was discussed, patient remains DO NOT RESUSCITATE. Surrogate decision-maker unchanged. Multiple medical problems were addressed. More than 50% of the time spent coordinating care, discussing management plans with involved caregivers. Management plans discussed with involved personnels. Medical decision making was of moderate to high complexity, patient's has multiple comorbidities. Medications reviewed and adjusted accordingly: Yes
--- NOTE | 2017-12-20 22:51 | PDOC PROGRESS REPORT ---
Subjective Progress Note for:: 12/20/17 Subjective:: No change, patient telemetry strips were again reviewed. Patient did not verbalize any complaints. Patient has advanced dementia. Reason For Visit: ANEMIA, HYPERTENSIVE URGENCY Physical Exam Vital Signs: Temp Pulse Resp BP Pulse Ox 97.5 F 82 14 103/48 L 100 12/20/17 21:08 12/20/17 21:08 12/20/17 21:08 12/20/17 21:08 12/20/17 21:08 Intake & Output 12/19/17 12/20/17 12/21/17 06:59 06:59 06:59 Intake Total 800 1900 Balance 800 1900 Weight 52.8 kg Exam: GENERAL: well-nourished and in no acute distress. Patient is alert but not oriented to place time, patient is however oriented to person. HEAD: Atraumatic, normocephalic. EYES: Pupils equal round and reactive to light, extraocular movements intact, sclera anicteric, conjunctiva are normal. ENT: TMs normal, nares patent, oropharynx clear without exudates. Moist mucous membranes. No oral ulcerations or bleeding gums noted NECK: supple without lymphadenopathy or JVD. Trachea is central. No cervical or axillary lymphadenopathy noted. Carotids are 2+ LUNGS: Breath sounds bibasilar fine crackles at bases. No significant dullness noted. CHEST: Palpation of chest wall shows no significant chest wall tenderness. HEART: [place] [employer], No PSH, 2/6 KORI aortic area, 1/6 mark systolic murmur mitral area, rubs or gallops. ABDOMEN: Soft, no significant tenderness appreciated, normoactive bowel sounds. No guarding, no rebound. No rigidity noted . No masses appreciated. EXTREMITIES: Pedal pulses are 1-2+, no calf tenderness noted, Trace + pedal edema noted. No clubbing or cyanosis. NEUROLOGICAL: Patient is alert but is not able to participate in neurological exam, patient is noted to be basically bedbound with generalized weakness. PSYCH: Patient cannot participate in a neurologic and psych exam because of the patient's current mental status SKIN: No significant ecchymosis, sacral decubiti noted. MUSCULOSKELETAL EXAM: No significant joint swelling noted. Bilateral upper and lower extremity contractures noted. Results Laboratory Results: 12/20/17 08:11 12/20/17 05:23 12/20/17 12/20/17 12/20/17 05:23 05:23 08:11 WBC 12.7 H 12.4 H RBC 2.66 L 2.59 L Hgb 7.3 L 7.1 L Hct 22.7 L 22.2 L MCV 86 86 MCH 27.6 27.5 MCHC 32.2 31.9 L RDW 16.6 H 16.6 H Plt Count 357 365 Seg Neutrophils % Not Reportable Lymphocytes % Not Reportable Monocytes % Not Reportable Eosinophils % Not Reportable Basophils % Not Reportable Absolute Neutrophils Not Reportable Absolute Lymphocytes Not Reportable Absolute Monocytes Not Reportable Absolute Eosinophils Not Reportable Absolute Basophils Not Reportable Retic Count (auto) 1.36 Absolute Retic 0.036 Sodium 144.9 Potassium 4.5 D Chloride 114 H Carbon Dioxide 23 Anion Gap 8 BUN 9 Creatinine 0.63 Est GFR ( Amer) > 60 Est GFR (Non-Af Amer) > 60 Glucose 88 Calcium 8.2 L Phosphorus 3.1 Magnesium 1.4 L Iron < 10.1 L TIBC 150 L % Saturation UNABLE TO CALCULATE Ferritin 560.00 H Total Bilirubin 0.5 AST 15 ALT 23 Alkaline Phosphatase 101 Total Protein 4.9 L Albumin 2.1 L Vitamin B12 > 1000.0 H Folate > 20.00 Blood Type Antibody Screen 12/20/17 13:22 WBC RBC Hgb Hct MCV MCH MCHC RDW Plt Count Seg Neutrophils % Lymphocytes % Monocytes % Eosinophils % Basophils % Absolute Neutrophils Absolute Lymphocytes Absolute Monocytes Absolute Eosinophils Absolute Basophils Retic Count (auto) Absolute Retic Sodium Potassium Chloride Carbon Dioxide Anion Gap BUN Creatinine Est GFR ( Amer) Est GFR (Non-Af Amer) Glucose Calcium Phosphorus Magnesium Iron TIBC % Saturation Ferritin Total Bilirubin AST ALT Alkaline Phosphatase Total Protein Albumin Vitamin B12 Folate Blood Type O POSITIVE Antibody Screen NEGATIVE EKG Comments: Telemetry strips reviewed showed sinus rhythm. Occasional APCs and VPCs were noted. Impressions: Chest X-Ray 12/19/17 15:32 IMPRESSION: NO ACUTE RADIOGRAPHIC FINDING IN THE CHEST. 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 Diabetes mellitus complication status : with unspecified complications Qualified Code(s): E11.8 - Type 2 diabetes mellitus with unspecified complications Is this a current diagnosis for this admission?: Yes (3) Dementia Qualifiers: Dementia type: unspecified type Dementia behavioral disturbance: without behavioral disturbance Qualified Code(s): F03.90 - Unspecified dementia without behavioral disturbance Is this a current diagnosis for this admission?: Yes (4) Decubital ulcer Qualifiers: Pressure ulcer location: buttock Pressure ulcer stage: stage 4 Laterality : unspecified laterality Qualified Code(s): L89.304 - Pressure ulcer of unspecified buttock, stage 4 Is this a current diagnosis for this admission?: Yes - Notes Notes: 2 D Echo report reviewed. No Afib noted on monitor - Time Time with patient: 15-25 minutes - Patient generally stable from cardiac standpoint. Patient has general baseline status. Patient would not be considered a candidate for any invasive or any further evaluation. 2D echocardiogram results were however reviewed which also confirmed the presence of sinus rhythm. Medications reviewed and adjusted accordingly: Yes
[2017-12-21] MEDS: PIPERACILLIN SODIUM/TAZOBACTAM 3.375 GM in NORMAL SALINE 100 ML IV SCH ×5 (00:17→23:53)
[2017-12-21] MEDS: VANCOMYCIN HCL 1,000 MG in DEXTROSE 5%-WATER 250 ML IV SCH ×2 (01:09→18:28)
[2017-12-21 02:40] LABS: ABSOLUTE NEUT (AUTO) 7.6 10^3/uL (1.7-8.2); BASOPHILS % (AUTO) 0.2 % (0-2); EOSINOPHILS % (AUTO) 0.3 % (0-6); HEMATOCRIT 32.4 % (36.0-47.0); LYMPHOCYTES % (AUTO) 10.2 % (13-45); MEAN CORPUSCULAR HEMOGLOBIN 28.3 pg (27.0-33.4); MEAN CORPUSCULAR VOLUME 83 fl (80-97); MONOCYTES % (AUTO) 10.5 % (3-13); PLATELET COUNT 327 10^3/uL (150-450); RED CELL DISTRIBUTION WIDTH 15.9 % (11.5-14.0); SEGMENTED NEUTROPHILS % (AUTO) 78.8 % (42-78); TOTAL CELLS COUNTED % (AUTO) 100 %; WHITE BLOOD COUNT 9.6 10^3/uL (4.0-10.5)
[2017-12-21 03:00] LABS: ALANINE AMINOTRANSFERASE 24 U/L (9-52); ALKALINE PHOSPHATASE 95 U/L (38-126); ANION GAP 7 (5-19); ASPARTATE AMINO TRANSFERASE 14 U/L (14-36); BILIRUBIN,DIRECT 0.4 mg/dL (0.0-0.4); BILIRUBIN,TOTAL 1.2 mg/dL (0.2-1.3); BLOOD UREA NITROGEN 8 mg/dL (7-20); CALCIUM 8.3 mg/dL (8.4-10.2); CARBON DIOXIDE 22 mmol/L (22-30); CHLORIDE 115 mmol/L (98-107); GLUCOSE 160 mg/dL (75-110); POTASSIUM 4.1 mmol/L (3.6-5.0); SODIUM 144.1 mmol/L (137-145); TOTAL PROTEIN 4.8 g/dL (6.3-8.2)
[2017-12-21] MEDS: DOCUSATE SODIUM 100 MG CAPSULE PO SCH ×3 (03:06→18:28)
[2017-12-21 03:15] LABS: PHOSPHORUS 2.7 mg/dL (2.5-4.5)
[2017-12-21] MEDS: LANSOPRAZOLE 30 MG TAB.RAP.DR PO SCH (05:54)
[2017-12-21] MEDS: FOLIC ACID 1 MG TABLET PO SCH (09:54)
[2017-12-21] MEDS: CYANOCOBALAMIN (VITAMIN B-12) 1,000 MCG TABLET PO SCH (09:54)
--- NOTE | 2017-12-21 10:35 | PDOC PROGRESS REPORT ---
Subjective Progress Note for:: 12/21/17 Subjective:: Patient noncommunicative Reason For Visit: ANEMIA, HYPERTENSIVE URGENCY Physical Exam Vital Signs: Temp Pulse Resp BP Pulse Ox 97.5 F 46 L 12 127/65 H 89 L 12/21/17 07:31 12/21/17 07:31 12/21/17 07:31 12/21/17 07:31 12/21/17 07:31 Intake & Output 12/20/17 12/21/17 12/22/17 06:59 06:59 06:59 Intake Total 800 2650 Balance 800 2650 Weight 52.8 kg 52.9 kg Musculoskeletal exam: PRESENT: other - Patient examined the right lateral decubitus position. The stage IV large sacral decubitus is clean, with granulation tissue; no foul smell drainage etc. Results Laboratory Results: 12/21/17 02:21 12/21/17 02:21 12/20/17 12/21/17 12/21/17 13:22 02:21 02:21 WBC 9.6 RBC 3.90 Hgb 11.0 L D Hct 32.4 L MCV 83 MCH 28.3 MCHC 34.0 RDW 15.9 H Plt Count 327 Seg Neutrophils % 78.8 H Lymphocytes % 10.2 L Monocytes % 10.5 Eosinophils % 0.3 Basophils % 0.2 Absolute Neutrophils 7.6 Absolute Lymphocytes 1.0 Absolute Monocytes 1.0 Absolute Eosinophils 0.0 Absolute Basophils 0.0 Sodium 144.1 Potassium 4.1 Chloride 115 H Carbon Dioxide 22 Anion Gap 7 BUN 8 Creatinine 0.62 Est GFR ( Amer) > 60 Est GFR (Non-Af Amer) > 60 Glucose 160 H Calcium 8.3 L Phosphorus 2.7 Magnesium 2.3 Total Bilirubin 1.2 AST 14 ALT 24 Alkaline Phosphatase 95 Total Protein 4.8 L Albumin 2.0 L Blood Type O POSITIVE Antibody Screen NEGATIVE Impressions: Chest X-Ray 12/19/17 15:32 IMPRESSION: NO ACUTE RADIOGRAPHIC FINDING IN THE CHEST. Assessment & Plan - Diagnosis (1) Decubital ulcer Qualifiers: Pressure ulcer location: buttock Pressure ulcer stage: stage 4 Laterality : unspecified laterality Qualified Code(s): L89.304 - Pressure ulcer of unspecified buttock, stage 4 Is this a current diagnosis for this admission?: Yes Plan: Stage IV central sacral decubitus, clean, with granulation tissue; minimal undermining; no indication for surgical debridement. Recommendations: 1. Initiate VAC therapy; orders written 2. If patient survives hospitalization, can follow-up with [facility] on an outpatient basis. 3. Will sign off for now; reconsult if necessary (2) Dementia Qualifiers: Dementia type: unspecified type Dementia behavioral disturbance: without behavioral disturbance Qualified Code(s): F03.90 - Unspecified dementia without behavioral disturbance Is this a current diagnosis for this admission?: Yes
[2017-12-21] MEDS: POTASSI CL 20 MEQ/NS 1L 1,000 ML IV PRN ×2 (11:04→23:52)
--- NOTE | 2017-12-21 17:12 | PDOC PROGRESS REPORT ---
Subjective Progress Note for:: 12/21/17 Subjective:: JESSICA STREET is a 82 year old female who was sent to the emergency room by her primary care physician for evaluation of anemia. In the emergency room the patient was found to be in atrial fibrillation with rapid ventricular response. She also had hypertensive urgency and she was referred for admission. The patient herself could only answer a few questions. She has advanced dementia at baseline. She also has a history of diabetes mellitus and depression. Today when I saw the patient she is awake and alert. She seems to be responding to therapy. She seems a little more alert after receiving blood transfusion yesterday. She was seen by general surgery who evaluated her stage IV decubitus ulcer. It was not felt that the ulcer needed to be debrided. Surgery has ordered a wound VAC for the patient. The patient is able to tell me that she is having no pain. She says that she feels better than when she came into the hospital. That was about the extent of the review of systems that I can obtain Reason For Visit: ANEMIA, HYPERTENSIVE URGENCY Physical Exam Vital Signs: Temp Pulse Resp BP Pulse Ox 97.5 F 71 12 127/65 H 89 L 12/21/17 07:31 12/21/17 14:00 12/21/17 07:31 12/21/17 07:31 12/21/17 07:31 Intake & Output 12/20/17 12/21/17 12/22/17 06:59 06:59 06:59 Intake Total 800 2650 0 Output Total 0 Balance 800 2650 0 Weight 52.8 kg 52.9 kg General appearance: PRESENT: other - This is a then, ill-appearing - [place] female. She is in no acute distress today Mouth exam: PRESENT: moist, tongue midline Respiratory exam: PRESENT: clear to auscultation lucy. ABSENT: rales, rhonchi, wheezes Cardiovascular exam: PRESENT: RRR. ABSENT: diastolic murmur, rubs, systolic murmur GI/Abdominal exam: PRESENT: normal bowel sounds, soft. ABSENT: distended, guarding, mass, organolmegaly, rebound, tenderness Rectal exam: PRESENT: deferred Extremities exam: PRESENT: full ROM. ABSENT: calf tenderness, clubbing, pedal edema Neurological exam: PRESENT: alert, awake, oriented to person, oriented to place , oriented to time, oriented to situation, CN II-XII grossly intact. ABSENT: motor sensory deficit Psychiatric exam: PRESENT: appropriate affect, normal mood. ABSENT: homicidal ideation, suicidal ideation Skin exam: PRESENT: dry, intact, warm, other - Sacrum not examined today. ABSENT: cyanosis, rash Results Laboratory Results: 12/21/17 02:21 12/21/17 02:21 12/20/17 12/21/17 12/21/17 13:22 02:21 02:21 WBC 9.6 RBC 3.90 Hgb 11.0 L D Hct 32.4 L MCV 83 MCH 28.3 MCHC 34.0 RDW 15.9 H Plt Count 327 Seg Neutrophils % 78.8 H Lymphocytes % 10.2 L Monocytes % 10.5 Eosinophils % 0.3 Basophils % 0.2 Absolute Neutrophils 7.6 Absolute Lymphocytes 1.0 Absolute Monocytes 1.0 Absolute Eosinophils 0.0 Absolute Basophils 0.0 Sodium 144.1 Potassium 4.1 Chloride 115 H Carbon Dioxide 22 Anion Gap 7 BUN 8 Creatinine 0.62 Est GFR ( Amer) > 60 Est GFR (Non-Af Amer) > 60 Glucose 160 H Calcium 8.3 L Phosphorus 2.7 Magnesium 2.3 Total Bilirubin 1.2 AST 14 ALT 24 Alkaline Phosphatase 95 Total Protein 4.8 L Albumin 2.0 L Blood Type O POSITIVE Antibody Screen NEGATIVE Impressions: Chest X-Ray 12/19/17 15:32 IMPRESSION: NO ACUTE RADIOGRAPHIC FINDING IN THE CHEST. Assessment & Plan - Diagnosis (1) Atrial fibrillation with rapid ventricular response Is this a current diagnosis for this admission?: Yes Plan: Is initially maintained on p.o. Cardizem. This is since been stopped. She has remained in a sinus rhythm and she is rate controlled. Her atrial fibrillation was likely prompted by her acute illness. (2) Hypertensive urgency Is this a current diagnosis for this admission?: Yes Plan: Resolved. Blood pressures have been on the low side. She has IV hydralazine available as needed. (3) Bacterial infection Is this a current diagnosis for this admission?: Yes Plan: The patient has a bacterial infection of undetermined source. I do still believe the most likely sources her sacral decubitus ulcer. She had leukocytosis and tachycardia at the time of admission. Her mental status is improved greatly as well with treatment. She is receiving IV vancomycin and Zosyn. We will continue for now. I suspect the patient will stay in the hospital over the weekend. Hopefully she can go back to her skilled facility on Sunday. (4) Anemia Is this a current diagnosis for this admission?: Yes Plan: She tested negative for occult blood on Hemoccult. She did receive 2 units of packed red blood cells with the appropriate response to her hemoglobin. (5) Sacral decubitus ulcer, stage IV Is this a current diagnosis for this admission?: Yes Plan: A wound VAC has been ordered. She should follow-up at the wound clinic at discharge. (6) Hypokalemia Is this a current diagnosis for this admission?: Yes Plan: Repleted and resolved (7) Diabetes mellitus Qualifiers: Diabetes mellitus type: type 2 Diabetes mellitus fpc insulin use: unspecified fpc insulin use status Diabetes mellitus complication status : with unspecified complications Qualified Code(s): E11.8 - Type 2 diabetes mellitus with unspecified complications Is this a current diagnosis for this admission?: Yes Plan: Adequately controlled on current regimen (8) Dementia Qualifiers: Dementia type: unspecified type Dementia behavioral disturbance: without behavioral disturbance Qualified Code(s): F03.90 - Unspecified dementia without behavioral disturbance Is this a current diagnosis for this admission?: Yes Plan: The patient clearly has advanced dementia at baseline. Will get speech therapy to evaluate her swallowing. I will try to get in touch with family members. There are no family members at the bedside this evening (9) Bedbound Is this a current diagnosis for this admission?: Yes Plan: The patient should be turned every 2 hours (10) Hypomagnesemia Is this a current diagnosis for this admission?: Yes Plan: Repleted and resolved - Time Time Spent with patient: 15-24 minutes - Inpatient Certification Medical Necessity: Need for IV Antibiotics - Inpatient hospitalization remains necessary. She is requiring parenteral antibiotics. Hopefully she can be sent back to her skilled facility on Sunday., Other
[2017-12-21] MEDS: MIRTAZAPINE 15 MG TABLET PO SCH (22:33)
[2017-12-22] MEDS: PIPERACILLIN SODIUM/TAZOBACTAM 3.375 GM in NORMAL SALINE 100 ML IV SCH ×4 (05:39→23:29)
[2017-12-22] MEDS: LANSOPRAZOLE 30 MG TAB.RAP.DR PO SCH (05:39)
[2017-12-22 07:53] LABS: ABSOLUTE MONOCYTES (AUTO) 0.8 10^3/uL (0.1-1.4); ABSOLUTE NEUT (AUTO) 7.4 10^3/uL (1.7-8.2); BASOPHILS % (AUTO) 0.1 % (0-2); EOSINOPHILS % (AUTO) 0.3 % (0-6); HEMOGLOBIN 12.3 g/dL (12.0-15.5); LYMPHOCYTES % (AUTO) 10.9 % (13-45); MEAN CORPUSCULAR HGB CONC 33.2 g/dL (32.0-36.0); MEAN CORPUSCULAR VOLUME 85 fl (80-97); MONOCYTES % (AUTO) 8.5 % (3-13); PLATELET COUNT 364 10^3/uL (150-450); RED BLOOD COUNT 4.39 10^6/uL (3.72-5.28); RED CELL DISTRIBUTION WIDTH 16.4 % (11.5-14.0); SEGMENTED NEUTROPHILS % (AUTO) 80.2 % (42-78); TOTAL CELLS COUNTED % (AUTO) 100 %; WHITE BLOOD COUNT 9.2 10^3/uL (4.0-10.5)
[2017-12-22 08:17] LABS: ALANINE AMINOTRANSFERASE 20 U/L (9-52); ALBUMIN 2.3 g/dL (3.5-5.0); ALKALINE PHOSPHATASE 113 U/L (38-126); ANION GAP 13 (5-19); ASPARTATE AMINO TRANSFERASE 18 U/L (14-36); BILIRUBIN,DIRECT 0.5 mg/dL (0.0-0.4); BILIRUBIN,TOTAL 0.9 mg/dL (0.2-1.3); BLOOD UREA NITROGEN 6 mg/dL (7-20); CALCIUM 8.5 mg/dL (8.4-10.2); CARBON DIOXIDE 17 mmol/L (22-30); CHLORIDE 117 mmol/L (98-107); GLUCOSE 93 mg/dL (75-110); PHOSPHORUS 2.7 mg/dL (2.5-4.5); POTASSIUM 4.4 mmol/L (3.6-5.0); SODIUM 146.7 mmol/L (137-145); TOTAL PROTEIN 5.6 g/dL (6.3-8.2)
[2017-12-22] MEDS: DOCUSATE SODIUM 100 MG CAPSULE PO SCH ×2 (10:10→17:46)
[2017-12-22] MEDS: CYANOCOBALAMIN (VITAMIN B-12) 1,000 MCG TABLET PO SCH (10:10)
[2017-12-22] MEDS: FOLIC ACID 1 MG TABLET PO SCH (10:10)
[2017-12-22] MEDS: DEXTROSE 5%-1/2 NORMAL SALINE 1,000 ML IV PRN (11:16)
--- NOTE | 2017-12-22 14:12 | PDOC PROGRESS REPORT ---
Subjective Progress Note for:: 12/22/17 Subjective:: Patient is seen resting in bed. Does answer some questions appropriately. She is more alert and communicative according to nursing staff. She denies shortness of breath, chest pain or dyspnea. She denies any nausea, abdominal pain or vomiting. She is had no further diarrhea at the present time. Denies any significant arthralgias or symptoms are negative. Reason For Visit: ANEMIA, HYPERTENSIVE URGENCY Physical Exam Vital Signs: Temp Pulse Resp BP Pulse Ox 98.2 F 77 16 142/73 H 100 12/22/17 11:14 12/22/17 11:14 12/22/17 11:14 12/22/17 11:14 12/22/17 11:14 Intake & Output 12/21/17 12/22/17 12/23/17 06:59 06:59 06:59 Intake Total 2650 2300 Output Total 0 Balance 2650 2300 Weight 52.9 kg 60.2 kg General appearance: PRESENT: no acute distress - Contractures of extremities, thin, well-developed, well-nourished Head exam: PRESENT: atraumatic, normocephalic Eye exam: PRESENT: conjunctiva pink, EOMI, PERRLA. ABSENT: scleral icterus Mouth exam: PRESENT: moist, neck supple, tongue midline Teeth exam: PRESENT: poor dentation Neck exam: ABSENT: carotid bruit, JVD, lymphadenopathy, thyromegaly Respiratory exam: PRESENT: clear to auscultation lucy. ABSENT: rales, rhonchi, wheezes Cardiovascular exam: PRESENT: RRR. ABSENT: diastolic murmur, rubs, systolic murmur Pulses: PRESENT: normal dorsalis pedis pul Vascular exam: PRESENT: normal capillary refill GI/Abdominal exam: PRESENT: normal bowel sounds, soft. 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 Neurological exam: PRESENT: alert, altered, awake, CN II-XII grossly intact, motor sensory deficit - Contracted extremities Psychiatric exam: PRESENT: flat affect Skin exam: PRESENT: dry, warm - Stage IV sacral decubitus, other Results Laboratory Results: 12/22/17 06:25 12/22/17 06:25 12/22/17 12/22/17 06:25 06:25 WBC 9.2 RBC 4.39 Hgb 12.3 Hct 37.0 MCV 85 MCH 28.0 MCHC 33.2 RDW 16.4 H Plt Count 364 Seg Neutrophils % 80.2 H Lymphocytes % 10.9 L Monocytes % 8.5 Eosinophils % 0.3 Basophils % 0.1 Absolute Neutrophils 7.4 Absolute Lymphocytes 1.0 Absolute Monocytes 0.8 Absolute Eosinophils 0.0 Absolute Basophils 0.0 Sodium 146.7 H Potassium 4.4 Chloride 117 H Carbon Dioxide 17 L Anion Gap 13 BUN 6 L Creatinine 0.65 Est GFR ( Amer) > 60 Est GFR (Non-Af Amer) > 60 Glucose 93 Calcium 8.5 Phosphorus 2.7 Magnesium 1.9 Total Bilirubin 0.9 AST 18 ALT 20 Alkaline Phosphatase 113 Total Protein 5.6 L Albumin 2.3 L Impressions: Chest X-Ray 12/19/17 15:32 IMPRESSION: NO ACUTE RADIOGRAPHIC FINDING IN THE CHEST. Assessment & Plan - Diagnosis (1) Anemia Is this a current diagnosis for this admission?: Yes Plan: Patient was transfused. She has had no sign of active bleeding. She would be high risk for any colonoscopy or EGD. (2) Atrial fibrillation with rapid ventricular response Is this a current diagnosis for this admission?: Yes Plan: Stable and now sinus rhythm. Cardiology is following (3) Dementia Qualifiers: Dementia type: unspecified type Dementia behavioral disturbance: without behavioral disturbance Qualified Code(s): F03.90 - Unspecified dementia without behavioral disturbance Is this a current diagnosis for this admission?: Yes Plan: Needs to return to [facility] (4) Diabetes mellitus Qualifiers: Diabetes mellitus type: type 2 Diabetes mellitus detention insulin use: unspecified detention insulin use status Diabetes mellitus complication status : with unspecified complications Qualified Code(s): E11.8 - Type 2 diabetes mellitus with unspecified complications Is this a current diagnosis for this admission?: Yes Plan: Continue current medication and sliding scale coverage. (5) Do not resuscitate Is this a current diagnosis for this admission?: Yes Plan: Written [id number] DNR (6) Hypertensive urgency Is this a current diagnosis for this admission?: Yes (7) Hypokalemia Is this a current diagnosis for this admission?: Yes (8) Hypomagnesemia Is this a current diagnosis for this admission?: Yes Plan: Replete and monitor (9) Sacral decubitus ulcer, stage IV Is this a current diagnosis for this admission?: Yes Plan: Surgery is following. Blood cultures are negative so far. Does not appear infected. There is some small area of necrosis needs to be debrided eventually. Will be difficult to heal with patient being bedbound in not having the best nutritional state. - Time Time Spent with patient: 25-34 minutes Total Critical Time (Minutes): 30 Medications reviewed and adjusted accordingly: Yes Anticipated discharge: SNF
[2017-12-22] MEDS: VANCOMYCIN HCL 1,000 MG in DEXTROSE 5%-WATER 250 ML IV SCH (18:56)
[2017-12-22 19:34] LABS: VANCOMYCIN,TROUGH 13.7 ug/mL (5.0-20.0)
[2017-12-22] MEDS: MIRTAZAPINE 15 MG TABLET PO SCH (21:30)
[2017-12-23] MEDS: LANSOPRAZOLE 30 MG TAB.RAP.DR PO SCH (05:29)
[2017-12-23] MEDS: PIPERACILLIN SODIUM/TAZOBACTAM 3.375 GM in NORMAL SALINE 100 ML IV SCH (05:30)
[2017-12-23] MEDS: DEXTROSE 5%-1/2 NORMAL SALINE 1,000 ML IV PRN (09:47)
[2017-12-23] MEDS: FOLIC ACID 1 MG TABLET PO SCH (09:48)
[2017-12-23] MEDS: CYANOCOBALAMIN (VITAMIN B-12) 1,000 MCG TABLET PO SCH (09:49)
[2017-12-23] MEDS: DOCUSATE SODIUM 100 MG CAPSULE PO SCH ×2 (09:49→17:04)
--- NOTE | 2017-12-23 13:51 | PDOC PROGRESS REPORT ---
Subjective Progress Note for:: 12/23/17 Subjective:: Patient is seen resting in bed. Does answer some questions appropriately. She is more alert and communicative according to nursing staff. She denies shortness of breath, chest pain or dyspnea. She denies any nausea, abdominal pain or vomiting. She is had no further diarrhea at the present time. Denies any significant arthralgias or symptoms are negative. Reason For Visit: ANEMIA, HYPERTENSIVE URGENCY Physical Exam Vital Signs: Temp Pulse Resp BP Pulse Ox 97.9 F 87 12 154/55 H 100 12/23/17 11:28 12/23/17 11:28 12/23/17 11:28 12/23/17 11:28 12/23/17 11:28 Intake & Output 12/22/17 12/23/17 12/24/17 06:59 06:59 06:59 Intake Total 2300 2049 Output Total 0 Balance 0 2049 Weight 60.2 kg 60.2 kg General appearance: PRESENT: no acute distress, thin, well-developed, other Head exam: PRESENT: atraumatic, normocephalic Eye exam: PRESENT: conjunctiva pink, EOMI, PERRLA. ABSENT: scleral icterus Ear exam: PRESENT: normal external ear exam Mouth exam: PRESENT: moist, tongue midline Neck exam: ABSENT: carotid bruit, JVD, lymphadenopathy, thyromegaly Respiratory exam: PRESENT: clear to auscultation lucy, decreased breath sounds, symmetrical, unlabored. ABSENT: rales, rhonchi, wheezes Cardiovascular exam: PRESENT: RRR. ABSENT: diastolic murmur, rubs, systolic murmur Pulses: PRESENT: normal dorsalis pedis pul Vascular exam: PRESENT: normal capillary refill GI/Abdominal exam: PRESENT: normal bowel sounds, soft. ABSENT: distended, guarding, mass, organolmegaly, rebound, tenderness Rectal exam: PRESENT: deferred Extremities exam: PRESENT: full ROM. ABSENT: calf tenderness, clubbing, pedal edema Neurological exam: PRESENT: alert, altered, awake, oriented to person, CN II- XII grossly intact, other - upper extremities contracted Psychiatric exam: PRESENT: flat affect Skin exam: PRESENT: dry, warm, other - chronic venous stasis changes over lower extremities Results Laboratory Results: 12/22/17 06:25 12/22/17 06:25 12/22/17 12/23/17 13:27 06:15 Stool Occult Blood NEGATIVE NEGATIVE Impressions: Chest X-Ray 12/19/17 15:32 IMPRESSION: NO ACUTE RADIOGRAPHIC FINDING IN THE CHEST. Assessment & Plan - Diagnosis (1) Anemia Qualifiers: Anemia type: iron deficiency Is this a current diagnosis for this admission?: Yes Plan: Patient was transfused. She has had no sign of active bleeding. She would be high risk for any colonoscopy or EGD. (2) Atrial fibrillation with rapid ventricular response Is this a current diagnosis for this admission?: Yes Plan: Stable and now sinus rhythm. 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 (5) Do not resuscitate Is this a current diagnosis for this admission?: Yes Plan: Written [id number] DNR (6) Hypertensive urgency Is this a current diagnosis for this admission?: Yes Plan: Resolved, normotensive on current medications (7) Hypokalemia Is this a current diagnosis for this admission?: Yes Plan: Replete and monitor (8) Hypomagnesemia Is this a current diagnosis for this admission?: Yes Plan: Replete and monitor (9) Sacral decubitus ulcer, stage IV Is this a current diagnosis for this admission?: Yes Plan: Surgery is following. Blood cultures are negative so far. Does not appear infected. There is some small area of necrosis needs to be debrided eventually. Will be difficult to heal with patient being bedbound in not having the best nutritional state. - Time Time Spent with patient: 25-34 minutes Total Critical Time (Minutes): 20 Medications reviewed and adjusted accordingly: Yes Anticipated discharge: SNF Within: within 24 hours - Inpatient Certification Based on my medical assessment, after consideration of the patient's comorbidities, presenting symptoms, or acuity I expect that the services needed warrant INPATIENT care.: Yes I certify that my determination is in accordance with my understanding of Medicare's requirements for reasonable and necessary INPATIENT services [42 CFR 412.3e].: Yes Medical Necessity: Significant Comorbidiites Make Outpatient Treatment Too Risky , Need Close Monitoring Due to Risk of Patient Decompensation, Need For IV Fluids
[2017-12-23] MEDS: MIRTAZAPINE 15 MG TABLET PO SCH (22:08)
[2017-12-24] MEDS: LANSOPRAZOLE 30 MG TAB.RAP.DR PO SCH (05:55)
[2017-12-24 08:33] LABS: ANION GAP 11 (5-19); BLOOD UREA NITROGEN 7 mg/dL (7-20); CALCIUM 8.8 mg/dL (8.4-10.2); CARBON DIOXIDE 20 mmol/L (22-30); CHLORIDE 113 mmol/L (98-107); GLUCOSE 133 mg/dL (75-110); POTASSIUM 3.5 mmol/L (3.6-5.0); SODIUM 144.1 mmol/L (137-145)
[2017-12-24] MEDS ORDERED: GLIPIZIDE 5 MG TABLET PO SCH (10:00)
[2017-12-24] MEDS: CYANOCOBALAMIN (VITAMIN B-12) 1,000 MCG TABLET PO SCH (10:12)
[2017-12-24] MEDS: FOLIC ACID 1 MG TABLET PO SCH (10:13)
[2017-12-24] MEDS: DOCUSATE SODIUM 100 MG CAPSULE PO SCH (11:29)
--- NOTE | 2017-12-24 11:29 | PDOC TRANSFER SUMMARY ---
General - Admit/Disc Date/PCP Admission Date/Primary Care Provider: 12/19/17 18:44 BITA MEANS Discharge Date: 12/24/17 - Discharge Diagnosis (1) Anemia Is this a current diagnosis for this admission?: Yes Summary: She received 2 units of packed red blood cells. Her last hemoglobin was 12. She has anemia of chronic disease. No signs of active bleeding. Continue current therapy (2) Atrial fibrillation with rapid ventricular response Is this a current diagnosis for this admission?: Yes Summary: Likely secondary to her anemia. This has resolved. She has been in sinus rhythm (3) Dementia Is this a current diagnosis for this admission?: Yes (4) Diabetes mellitus Is this a current diagnosis for this admission?: Yes (5) Do not resuscitate Is this a current diagnosis for this admission?: Yes (6) Hypertensive urgency Is this a current diagnosis for this admission?: Yes (7) Hypokalemia Is this a current diagnosis for this admission?: Yes Summary: Repleted (8) Hypomagnesemia Is this a current diagnosis for this admission?: Yes Summary: Repleted (9) Sacral decubitus ulcer, stage IV Is this a current diagnosis for this admission?: Yes Summary: Seen by the surgical team. Dr. Cope, saw the patient in consult and recommended wound VAC and follow-up with wound care clinic. - Additional Information Resuscitation Status: Do Not Resuscitate Discharge Diet: Regular Discharge Activity: Activity As Tolerated Home Medications: Cyanocobalamin (Vitamin B-12) [Vitamin B12] 2,500 mcg PO DAILY 12/19/17 Docusate Sodium [Colace 100 mg Capsule] 100 mg PO BID 12/19/17 Folic Acid [Folvite 1 mg Tablet] 1 mg PO DAILY 12/19/17 Glipizide [Glucotrol 5 mg Tablet] 2.5 mg PO DAILY 12/19/17 Insulin Aspart [Novolog Flexpen] 0 unit SQ .SLIDING SCALE 12/19/17 Mirtazapine [Remeron 15 mg Tablet] 15 mg PO QHS 12/19/17 Omeprazole 20 mg PO DAILY 12/19/17 History of Present Illness Admission Date/PCP: 12/19/17 18:44 BITA MEANS Patient complains of: Sent by primary physician for anemia History of Present Illness: JESSICA STRE[address] is a 82 year old female who was sent to the emergency room by her primary care physician for evaluation of anemia. In the emergency room the patient was found to be in atrial fibrillation with rapid ventricular response. She also had hypertensive urgency and she was referred for admission. The patient herself can only answer a few questions. She has advanced dementia at baseline. She also has a history of diabetes mellitus and depression. Hospital Course Hospital Course: Patient was admitted to the hospitalist service on telemetry. She was given IV bolus of diltiazem and placed on oral Cardizem. Dr. Lopez, automobile mechanic supervisor, saw the patient in consult for her atrial fibrillation. 2D echocardiogram was obtained. This showed well-preserved left ventricular ejection fraction. Grade 2/4 diastolic dysfunction. She had no further atrial fibrillation during her hospital stay. Surgery was consulted for her stage IV sacral wound. She was initially started on IV antibiotics. Cultures were obtained. Blood cultures and urine cultures were negative. Antibiotics were discontinued. Surgery placed a wound VAC to her sacral wound. They recommended continuing this and follow-up with wound care clinic discharge. She is back to her baseline mentality. She is eating well. Hemoglobin has been stable. She is ready for transfer back to primary nursing facility Physical Exam Vital Signs: Temp Pulse Resp BP Pulse Ox 98.7 F 115 H 18 144/92 H 100 12/24/17 08:00 12/24/17 08:00 12/24/17 08:00 12/24/17 08:00 12/24/17 08:00 Intake & Output 12/23/17 12/24/17 12/25/17 06:59 06:59 06:59 Intake Total 2049 520 Balance 2049 520 Weight 60.2 kg 60.3 kg General appearance: PRESENT: no acute distress, well-developed, well-nourished Head exam: PRESENT: atraumatic, normocephalic Eye exam: PRESENT: conjunctiva pink, EOMI, PERRLA. ABSENT: scleral icterus Ear exam: PRESENT: normal external ear exam Mouth exam: PRESENT: moist, neck supple, tongue midline Teeth exam: PRESENT: poor dentation Neck exam: ABSENT: carotid bruit, JVD, lymphadenopathy, thyromegaly Respiratory exam: PRESENT: clear to auscultation lucy. ABSENT: rales, rhonchi, wheezes Cardiovascular exam: PRESENT: RRR. ABSENT: diastolic murmur, rubs, systolic murmur Pulses: PRESENT: normal dorsalis pedis pul Vascular exam: PRESENT: normal capillary refill GI/Abdominal exam: PRESENT: normal bowel sounds, soft. ABSENT: distended, guarding, mass, organolmegaly, rebound, tenderness Rectal exam: PRESENT: deferred Extremities exam: PRESENT: full ROM. ABSENT: calf tenderness, clubbing, pedal edema Musculoskeletal exam: PRESENT: deformity - Contractures upper Neurological exam: PRESENT: alert, altered, awake, CN II-XII grossly intact, other - Contractures of upper extremities Psychiatric exam: PRESENT: agitated Skin exam: PRESENT: dry, intact, warm. ABSENT: cyanosis, rash Results Laboratory Results: 12/22/17 06:25 12/24/17 07:31 12/24/17 07:31 Sodium 144.1 Potassium 3.5 L Chloride 113 H Carbon Dioxide 20 L Anion Gap 11 BUN 7 Creatinine 0.62 Est GFR ( Amer) > 60 Est GFR (Non-Af Amer) > 60 Glucose 133 H Calcium 8.8 Impressions: Chest X-Ray 12/19/17 15:32 IMPRESSION: NO ACUTE RADIOGRAPHIC FINDING IN THE CHEST. Qualifiers - * PATIENT BEING DISCHARGED WITH ANY OF THE FOLLOWING DIAGNOSIS: No Plan Discharge Plan: Transfer to [facility] Time Spent: Less than 30 Minutes
[2017-12-24 12:46] VITALS: BP 147/82
== END 2017-12-24 16:10 | DRG 304 ==
LOC: ER 14:41 → EH 18:44 → 4S 20:15
PROVIDERS: ADMIT Internal Medicine; ATTEND Internal Medicine
PROC: 30233N1 Transfusion of Nonautologous Red Blood Cells into Peripheral Vein, Percutaneous Approach (ICD-10-PCS; principal; 2017-12-20)
DX: I16.0 Hypertensive urgency (principal); L89.304 Pressure ulcer of unspecified buttock, stage 4; L89.154 Pressure ulcer of sacral region, stage 4; D63.8 Anemia in other chronic diseases classified elsewhere; I10 Essential (primary) hypertension; I48.91 Unspecified atrial fibrillation; F03.90 Unspecified dementia, unspecified severity, without behavioral disturbance, psychotic disturbance, mood disturbance, and anxiety; Z66 Do not resuscitate; E11.9 Type 2 diabetes mellitus without complications; E87.6 Hypokalemia; E83.42 Hypomagnesemia; M19.90 Unspecified osteoarthritis, unspecified site; I49.9 Cardiac arrhythmia, unspecified; F32.9 Major depressive disorder, single episode, unspecified; Z79.4 Long term (current) use of insulin; Z79.899 Other long term (current) drug therapy; Z90.710 Acquired absence of both cervix and uterus; Z74.01 Bed confinement status
CPT/HCPCS: 36415; 36430; 71045; 80048; 80053; 80076; 80202; 81001; 82272; 82607; 82728; 82746; 82962; 83540; 83550; 83605; 83690; 83735; 84100; 85025; 85027; 85045; 85610; 85730; 86850; 86900; 86901; 86920; 87040; 87086; 87493; 93005; 93010; 93306; 96361; 96374; 99285; G8996-GN; G8997-GN; G8998-GN; J1815; J2543; J3370; J3475; J3480; J3490; J7040; J7060; P9016

== ENCOUNTER 2018-01-10 12:40 | Inpatient (IN) | payer MEDICARE, MEDICAID ==
[2018-01-10] MEDS ORDERED: VANCOMYCIN HCL INJ 1000 MG VIAL IV ONE (13:45)
[2018-01-10] MEDS ORDERED: NORMAL SALINE 1000 ML 1,000 ML IV ONE ×2 (14:05→21:29)
--- NOTE | 2018-01-10 14:17 | ER Document Report ---
Sepsis - Vital Signs Interpretation: Hypotensive, Tachycardic - Cardiovascular Peripheral Pulse Strength: Weak Capillary refill: > 3 seconds Rhythm: Irregularly irregular Heart Sounds: Normal auscultation - Respiratory Breath Sounds: Clear Respiratory Status: No respiratory distress - Skin Skin Color: Other - HIGHLY PIGMENTED, POOR TURGOR
[2018-01-10] MEDS ORDERED: NOREPINEPHRINE BITARTRATE INJ/PF 4 MG/4 ML SDV IV ONE (14:34)
[2018-01-10 14:52] LABS: INTERNATIONAL RATION (INR) 1.18; PROTHROMBIN TIME 15.6 SEC (11.4-15.4)
--- NOTE | 2018-01-10 14:52 | RADIOLOGY REPORT (SQ) ---
EXAM DESCRIPTION: CHEST SINGLE VIEW COMPLETED DATE/TIME: 01/10/2018 2:36 pm REASON FOR STUDY: SEPSIS COMPARISON: 12/19/2017. NUMBER OF VIEWS: One view. TECHNIQUE: Single frontal radiographic view of the chest acquired. LIMITATIONS: The left lung apex is obscured by the patient's head. FINDINGS: LUNGS AND PLEURA: No opacities, masses or pneumothorax. No pleural effusion. MEDIASTINUM AND HILAR STRUCTURES: No masses. Contour normal. HEART AND VASCULAR STRUCTURES: Heart enlarged without failure. Normal vasculature. BONES: No acute findings. HARDWARE: None in the chest. OTHER: No other significant finding. IMPRESSION: HEART ENLARGED WITHOUT FAILURE. NO OTHER SIGNIFICANT RADIOGRAPHIC FINDING IN THE CHEST. TECHNICAL DOCUMENTATION: JOB ID: [id number] [employer]- All Rights Reserved Reading location - IP/workstation name: [email or web address]
[2018-01-10 14:55] LABS: APPEARANCE,URINE SLIGHTLY-CLOUDY; BILIRUBIN,URINE NEGATIVE (NEGATIVE); COLOR,URINE YELLOW; GLUCOSE, URINE 50 mg/dL (NEGATIVE); KETONES,URINE NEGATIVE (NEGATIVE); LEUKOCYTE ESTERASE,URINE NEGATIVE (NEGATIVE); NITRITE,URINE NEGATIVE (NEGATIVE); PROTEIN,URINE 30 mg/dL (NEGATIVE); URINE SPECIFIC GRAVITY 1.013; UROBILINOGEN,URINE NEGATIVE mg/dL (<2.0)
[2018-01-10 15:01] LABS: ABSOLUTE LYMPHOCYTES (AUTO) 1.5 10^3/uL (0.5-4.7); ABSOLUTE MONOCYTES (AUTO) 0.9 10^3/uL (0.1-1.4); ABSOLUTE NEUT (AUTO) 14.1 10^3/uL (1.7-8.2); BASOPHILS % (AUTO) 0.1 % (0-2); HEMATOCRIT 32.9 % (36.0-47.0); HEMOGLOBIN 10.6 g/dL (12.0-15.5); LYMPHOCYTES % (AUTO) 8.9 % (13-45); MEAN CORPUSCULAR HEMOGLOBIN 27.4 pg (27.0-33.4); MEAN CORPUSCULAR HGB CONC 32.2 g/dL (32.0-36.0); MEAN CORPUSCULAR VOLUME 85 fl (80-97); MONOCYTES % (AUTO) 5.3 % (3-13); PLATELET COUNT 340 10^3/uL (150-450); RED BLOOD COUNT 3.86 10^6/uL (3.72-5.28); RED CELL DISTRIBUTION WIDTH 16.1 % (11.5-14.0); SEGMENTED NEUTROPHILS % (AUTO) 85.7 % (42-78); TOTAL CELLS COUNTED % (AUTO) 100 %; WHITE BLOOD COUNT 16.5 10^3/uL (4.0-10.5)
[2018-01-10 15:06] LABS: ALANINE AMINOTRANSFERASE 33 U/L (9-52); ALBUMIN 2.7 g/dL (3.5-5.0); ALKALINE PHOSPHATASE 187 U/L (38-126); ANION GAP 18 (5-19); ASPARTATE AMINO TRANSFERASE 150 U/L (14-36); BILIRUBIN,DIRECT 0.8 mg/dL (0.0-0.4); BILIRUBIN,TOTAL 0.9 mg/dL (0.2-1.3); BLOOD UREA NITROGEN 21 mg/dL (7-20); CALCIUM 7.3 mg/dL (8.4-10.2); CARBON DIOXIDE 31 mmol/L (22-30); CHLORIDE 102 mmol/L (98-107); GLUCOSE 142 mg/dL (75-110); SODIUM 150.5 mmol/L (137-145); TOTAL PROTEIN 6.2 g/dL (6.3-8.2)
[2018-01-10 15:07] LABS: POTASSIUM 2.5 mmol/L (3.6-5.0)
--- NOTE | 2018-01-10 15:24 | ER Document Report ---
ED General - General Chief Complaint: Altered Mental Status Stated Complaint: ALTERED MENTAL STATUS Time Seen by Provider: 01/10/18 13:35 Mode of Arrival: Medic Information source: Transfer Record, [facility] Records Cannot obtain history due to: Unstable vital signs, Altered mental status TRAVEL OUTSIDE OF THE [place] IN LAST 30 DAYS: No - HPI Onset: This morning Onset/Duration: Gradual Associated symptoms: Slow to respond, Weakness Exacerbated by: Denies Relieved by: Denies Similar symptoms previously: No Recently seen / treated by doctor: No - Related Data Allergies/Adverse Reactions: No Known Allergies Allergy (Verified 10/25/13 10:00) Past Medical History - General Information source: Transfer Record, [facility] Records Cannot obtain history due to: Unstable vital signs, Altered mental status - Social History Smoking Status: Unknown if Ever Smoked Cigarette use (# per day): No Chew tobacco use (# tins/day): No Frequency of alcohol use: None Drug Abuse: None Lives with: Intermediate Family History: Other - Unobtainable Patient has suicidal ideation: No Patient has homicidal ideation: No - Past Medical History Cardiac Medical History: Denies: Hx Atrial Fibrillation Pulmonary Medical History: Denies: Hx Tuberculosis Neurological Medical History: Denies: Hx Seizures Endocrine Medical History: Reports: Hx Diabetes Mellitus Type 2 Renal/ Medical History: Denies: Hx Peritoneal Dialysis Musculoskeltal Medical History: Reports Hx Arthritis Skin Medical History: Reports Other - SACRAL DECUBITUS Psychiatric Medical History: Reports: Hx Dementia, Hx Depression Past Surgical History: Reports: Hx Hysterectomy - Immunizations Hx Diphtheria, Pertussis, Tetanus Vaccination: No Review of Systems - Review of Systems -: Yes ROS unobtainable due to patient's medical condition Physical Exam - Vital signs Vitals: Resp 7 L 01/10/18 13:02 Interpretation: Hypotensive, Tachycardic - General General appearance: Lethargic In distress: None - HEENT Head: Normocephalic Eyes: Pale conjunctiva Ears: Normal Nasal: Normal Mouth/Lips: Normal Mucous membranes: Dry Neck: Other - FLEXION CONTRACTURE - Respiratory Respiratory status: No respiratory distress Breath sounds: Normal. No: Rales, Wheezing - Cardiovascular Rhythm: Regular, Tachycardia Heart sounds: Normal auscultation Murmur: No - Abdominal Inspection: Normal Bowel sounds: Hypoactive Notes: DIFFICULT EXAM DUE TO CONTRACTURES. - Extremities General upper extremity: Other - FLEXION CONTRACTURES General lower extremity: Other - ATROPHIED - Neurological Cognition: Other - STUPOROUS [place] Coma Scale Eye Opening: To Pain Yung Coma Scale Verbal: None Yung Coma Scale Motor: Localizes to Pain Yung Coma Scale Total: 8 - Skin Skin Temperature: Warm Skin Moisture: Dry Skin Turgor: Tenting Skin irregularity: Decubitus ulcer - SACRAL Location of irregularity: Other - SACRUM Course - Vital Signs Vital signs: Temp Pulse Resp BP Pulse Ox 96.6 F L 95 18 127/67 H 99 01/15/18 08:00 01/15/18 08:00 01/15/18 08:00 01/15/18 08:00 01/15/18 08:00 - Laboratory Result Diagrams: 01/15/18 04:20 01/15/18 04:20 Laboratory results interpreted by me: 01/10/18 01/10/18 01/10/18 12:51 13:20 13:20 WBC 16.5 H Hgb 10.6 L Hct 32.9 L RDW 16.1 H Seg Neutrophils % 85.7 H Lymphocytes % 8.9 L Absolute Neutrophils 14.1 H PT 15.6 H Sodium Potassium Carbon Dioxide BUN Creatinine Est GFR ( Amer) Est GFR (Non-Af Amer) Glucose POC Glucose 139 H Lactic Acid Calcium Direct Bilirubin AST Alkaline Phosphatase Total Protein Albumin Urine Protein Urine Glucose (UA) 01/10/18 01/10/18 01/10/18 13:20 13:20 13:20 WBC Hgb Hct RDW Seg Neutrophils % Lymphocytes % Absolute Neutrophils PT Sodium 150.5 H Potassium 2.5 L* Carbon Dioxide 31 H BUN 21 H Creatinine 1.52 H Est GFR ( Amer) 40 L Est GFR (Non-Af Amer) 33 L Glucose 142 H POC Glucose Lactic Acid 6.6 H Calcium 7.3 L Direct Bilirubin 0.8 H AST 150 H Alkaline Phosphatase 187 H Total Protein 6.2 L Albumin 2.7 L Urine Protein 30 H Urine Glucose (UA) 50 H - EKG Interpretation by Me EKG shows normal: [place], Intervals, QRS Complexes. abnormal: Sinus rhythm Rate: Normal Rhythm: A.Fib, PVC's When compared to previous EKG there are: No significant change - Consults DR. KENDALL Time consulted: 15:16 Consulted provider: will come to ER Procedures - Additional Procedures IV insertion Time performed: 14:50 Additional Procedures: IV insertion - RIGHT EXTERNAL JUGULAR V. CANNULATED WITH 20ga CATHETER ON FOURTH ATTEMPT. Critical Care Note - Critical Care Note Total time excluding time spent on procedures (mins): 60 Comments: SEPSIS, SEPTIC SHOCK, UNSTABLE VITAL SIGNS, AGGRESSIVE INTERVENTIONS NECESSARY. Discharge - Discharge Clinical Impression: Sacral decubitus ulcer, stage IV, Hypokalemia Sepsis Qualifiers: Sepsis type: sepsis due to unspecified organism Qualified Code(s): A41.9 - Sepsis, unspecified organism Dementia Qualifiers: Dementia type: unspecified type Dementia behavioral disturbance: without behavioral disturbance Qualified Code(s): F03.90 - Unspecified dementia without behavioral disturbance Condition: Critical Disposition: ADMITTED INPATIENT Admitting Provider: Hospitalist Unit Admitted: ICU
[2018-01-10] MEDS ORDERED: IPRATROPIUM/ALBUTEROL 0.5-2.5 MG/3 ML AMPUL NEB PRN (15:45)
[2018-01-10] MEDS ORDERED: ACETAMINOPHEN 650 MG SUPP.RECT PR PRN (15:45)
[2018-01-10] MEDS ORDERED: POTASSI CL 20 MEQ/D5-1/4NS 1L 1,000 ML IV PRN (15:45)
[2018-01-10] MEDS ORDERED: ONDANSETRON HCL INJ/PF 4 MG/2 ML SDV IV PRN (15:45)
[2018-01-10] MEDS ORDERED: VANCOMYCIN HCL 0 MG in DEXTROSE 5%-WATER 250 ML IV NR (16:00)
[2018-01-10 16:05] LABS: VENOUS BLOOD BASE EXCESS -1.2 mmol/L; VENOUS BLOOD HCO3 25.1 mmol/L (20-32); VENOUS BLOOD PCO2 49.2 mmHg (35-63); VENOUS BLOOD PH 7.33 (7.30-7.42)
--- NOTE | 2018-01-10 16:13 | PDOC H&P ---
History of Present Illness Admission Date/PCP: BITA MEANS Patient complains of: Altered mental status per records History of Present Illness: JESSICA STREET is a 82 year old female This patient presents to emergency room with complaints of altered mental status. Please note this information is obtained from the chart as patient is unable to provide any kind of information and is very little information prior to my evaluation. It appears she was sent here from the retirement for altered mental status. She was just discharged from this hospital on December 24 when she presented with anemia as well as atrial fibrillation with rapid ventricular response in addition to the illnesses. She has a sacral wound that required a wound VAC to be placed at the time. It appears that she was actually able to eat orally and mentating at her baseline. Today she is thoroughly lethargic and not mentating well at all. Past Medical History Cardiac Medical History: Denies: Atrial Fibrillation Pulmonary Medical History: Denies: Tuberculosis Neurological Medical History: Denies: Seizures Endocrine Medical History: Reports: Diabetes Mellitus Type 2 Musculoskeltal Medical History: Reports: Arthritis Psychiatric Medical History: Reports: Dementia, Depression Hematology: Reports: Anemia Past Surgical History Past Surgical History: Reports: Hysterectomy Social History Information Source: [facility] Records Smoking Status: Unknown if Ever Smoked Frequency of Alcohol Use: None Hx Recreational Drug Use: No Hx Prescription Drug Abuse: No - Advance Directive Resuscitation Status: Full Code Family History Family History: Other - Unobtainable Parental Family History Reviewed: No Children Family History Reviewed: No Sibling(s) Family History Reviewed.: No Medication/Allergy Home Medications: Insulin Aspart [Novolog Flexpen] 0 unit SQ .SLIDING SCALE 12/19/17 RX: Cyanocobalamin (Vitamin B-12) [Vitamin B12] 2,500 mcg PO DAILY 12/19/17 RX: Docusate Sodium [Colace 100 mg Capsule] 100 mg PO BID 12/19/17 RX: Folic Acid [Folvite 1 mg Tablet] 1 mg PO DAILY 12/19/17 RX: Glipizide [Glucotrol 5 mg Tablet] 2.5 mg PO DAILY 12/19/17 RX: Mirtazapine [Remeron 15 mg Tablet] 15 mg PO QHS 12/19/17 RX: Omeprazole 20 mg PO DAILY 12/19/17 Allergies/Adverse Reactions: No Known Allergies Allergy (Verified 10/25/13 10:00) Review of Systems ROS unobtainable: Due to mental status Physical Exam Vital Signs: Temp Pulse Resp BP Pulse Ox 96.2 F L 18 84/63 L 100 01/10/18 16:01 01/10/18 16:01 01/10/18 16:01 01/10/18 16:01 Intake & Output 01/09/18 01/10/18 01/11/18 06:59 06:59 06:59 Weight 40.37 kg General appearance: PRESENT: no acute distress, thin, other - Elderly, ill looking but nontoxic lethargic Head exam: PRESENT: atraumatic Mouth exam: PRESENT: dry mucosa Neck exam: ABSENT: carotid bruit Respiratory exam: PRESENT: accessory muscle use, crackles, unlabored. ABSENT: tachypnea Cardiovascular exam: PRESENT: irregular rhythm, +S1, +S2, systolic murmur GI/Abdominal exam: PRESENT: normal bowel sounds, soft. ABSENT: distended, guarding, mass, organolmegaly, rebound, tenderness Rectal exam: PRESENT: deferred Musculoskeletal exam: PRESENT: other - Contracted upper extremities Neurological exam: PRESENT: altered, other - Lethargic. ABSENT: oriented to person, oriented to place, oriented to time, oriented to situation Skin exam: PRESENT: rash, other - sacral decubitus ulcer stage IV with a clean margins and minimal discharge Exposed tissue appears to be pretty clean Results Laboratory Results: 01/10/18 13:20 01/10/18 13:20 01/10/18 01/10/18 01/10/18 13:20 13:20 13:20 WBC 16.5 H RBC 3.86 Hgb 10.6 L Hct 32.9 L MCV 85 MCH 27.4 MCHC 32.2 RDW 16.1 H Plt Count 340 Seg Neutrophils % 85.7 H Lymphocytes % 8.9 L Monocytes % 5.3 Eosinophils % 0.0 Basophils % 0.1 Absolute Neutrophils 14.1 H Absolute Lymphocytes 1.5 Absolute Monocytes 0.9 Absolute Eosinophils 0.0 Absolute Basophils 0.0 Sodium 150.5 H Potassium 2.5 L* Chloride 102 Carbon Dioxide 31 H Anion Gap 18 BUN 21 H Creatinine 1.52 H Est GFR ( Amer) 40 L Est GFR (Non-Af Amer) 33 L Glucose 142 H Lactic Acid 6.6 H Calcium 7.3 L Total Bilirubin 0.9 AST 150 H ALT 33 Alkaline Phosphatase 187 H Total Protein 6.2 L Albumin 2.7 L Urine Color Urine Appearance Urine pH Ur Specific [place] Urine Protein Urine Glucose (UA) Urine Ketones Urine Blood Urine Nitrite Ur Leukocyte Esterase Urine WBC (Auto) Urine RBC (Auto) 01/10/18 13:20 WBC RBC Hgb Hct MCV MCH MCHC RDW Plt Count Seg Neutrophils % Lymphocytes % Monocytes % Eosinophils % Basophils % Absolute Neutrophils Absolute Lymphocytes Absolute Monocytes Absolute Eosinophils Absolute Basophils Sodium Potassium Chloride Carbon Dioxide Anion Gap BUN Creatinine Est GFR ( Amer) Est GFR (Non-Af Amer) Glucose Lactic Acid Calcium Total Bilirubin AST ALT Alkaline Phosphatase Total Protein Albumin Urine Color YELLOW Urine Appearance SLIGHTLY-CLOUDY Urine pH 5.0 Ur Specific [place] 1.013 Urine Protein 30 H Urine Glucose (UA) 50 H Urine Ketones NEGATIVE Urine Blood NEGATIVE Urine Nitrite NEGATIVE Ur Leukocyte Esterase NEGATIVE Urine WBC (Auto) 1 Urine RBC (Auto) 1 Impressions: Chest X-Ray 01/10/18 13:45 IMPRESSION: HEART ENLARGED WITHOUT FAILURE. NO OTHER SIGNIFICANT RADIOGRAPHIC FINDING IN THE CHEST. Assessment & Plan - Diagnosis (1) Sepsis Qualifiers: Sepsis type: sepsis due to unspecified organism Qualified Code(s): A41.9 - Sepsis, unspecified organism Is this a current diagnosis for this admission?: Yes Plan: Precise source of sepsis is actually not known. Urinalysis i and chest x-ray are negative for acute findings. It is possible that her decubitus could be infected. Patient will be covered with vancomycin as well as empiric Zosyn as she has recently been in hospital. Will follow up on culture results (2) Hypokalemia Is this a current diagnosis for this admission?: Yes Plan: We will replace potassium and check magnesium level (3) ARF (acute renal failure) Qualifiers: Is this a current diagnosis for this admission?: Yes Plan: We will continue IV fluids follow (4) Anemia Is this a current diagnosis for this admission?: Yes Plan: This about 2 - 3 weeks ago (5) Decubital ulcer Qualifiers: Pressure ulcer location: sacral region Pressure ulcer stage: stage 4 Qualified Code(s): L89.154 - Pressure ulcer of sacral region, stage 4 Is this a current diagnosis for this admission?: Yes Plan: Present on admission (6) Hypernatremia Is this a current diagnosis for this admission?: Yes Plan: We will give hypotonic IV fluid and closely monitor - Time Time Spent: 30 to 50 Minutes Medications reviewed and adjusted accordingly: Yes Anticipated discharge: SNF Within: within 72 hours - Inpatient Certification Based on my medical assessment, after consideration of the patient's comorbidities, presenting symptoms, or acuity I expect that the services needed warrant INPATIENT care.: Yes Medical Necessity: Need For IV Fluids, Need for IV Antibiotics - Plan Summary Plan Summary: I was told that patient is a full code as per the ER physician. She may have being a DNR form time but since there is no way for me to verify this I will go ahead and make a full code for now and follow-up with family re CODE STATUS
[2018-01-10] MEDS ORDERED: NORMAL SALINE 1000 ML 1,000 ML IV PRN (16:22)
[2018-01-10] MEDS: PIPERACILLIN SODIUM/TAZOBACTAM 3.375 GM in NORMAL SALINE 100 ML IV SCH ×2 (18:13→23:00)
[2018-01-10] MEDS: POTASSI CL 20 MEQ/50 ML RIDER 20 MEQ/50 ML RTUPB IV SCH ×2 (19:52→21:42)
[2018-01-10] MEDS: DEXTROSE 5%-WATER 250 ML with NOREPINEPHRINE BITARTRATE 4 MG IV PRN ×2 (20:46)
[2018-01-10] MEDS: FAMOTIDINE INJ/PF 20 MG/2 ML SDV IV SCH (21:42)
[2018-01-10] MEDS: POTASSI CL 20 MEQ/D5-1/4NS 1L 1,000 ML IV SCH ×2 (21:53→23:00)
[2018-01-10] MEDS: MAGNESIUM SULFATE 1 GM/D5W 100 ML IV SCH ×2 (22:59→23:49)
--- NOTE | 2018-01-11 00:26 | EKG REPORT ---
SEVERITY:- ABNORMAL ECG - ATRIAL FIBRILLATION VENTRICULAR PREMATURE COMPLEX REPOL ABNRM SUGGESTS ISCHEMIA, ANT-LAT LEADS : Confirmed by: Katey Wilson MD 11-Jan-2018 00:25:37
[2018-01-11] MEDS: POTASSI CL 20 MEQ/D5-1/4NS 1L 1,000 ML IV SCH (01:39)
[2018-01-11] MEDS: DEXTROSE 5%-WATER 250 ML with NOREPINEPHRINE BITARTRATE 4 MG IV PRN ×4 (03:37→19:31)
[2018-01-11] MEDS ORDERED: 1/2 NORMAL SALINE 1,000 ML IV PRN (03:46)
[2018-01-11 04:25] LABS: HEMATOCRIT 28.2 % (36.0-47.0); HEMOGLOBIN 9.1 g/dL (12.0-15.5); MEAN CORPUSCULAR HEMOGLOBIN 27.5 pg (27.0-33.4); MEAN CORPUSCULAR HGB CONC 32.3 g/dL (32.0-36.0); MEAN CORPUSCULAR VOLUME 85 fl (80-97); PLATELET COUNT 304 10^3/uL (150-450); RED BLOOD COUNT 3.31 10^6/uL (3.72-5.28); RED CELL DISTRIBUTION WIDTH 16.3 % (11.5-14.0); WHITE BLOOD COUNT 14.4 10^3/uL (4.0-10.5)
[2018-01-11 04:37] LABS: BLOOD UREA NITROGEN 20 mg/dL (7-20); CHLORIDE 103 mmol/L (98-107); POTASSIUM 3.1 mmol/L (3.6-5.0); SODIUM 137.3 mmol/L (137-145)
[2018-01-11 04:58] LABS: ANION GAP 16 (5-19)
[2018-01-11 05:08] LABS: CARBON DIOXIDE 18 mmol/L (22-30)
[2018-01-11 05:11] LABS: CALCIUM 5.9 mg/dL (8.4-10.2)
[2018-01-11] MEDS ORDERED: INSULIN REG, HUMAN 100 UNIT/ML 3 ML VIAL (PYX) IV ONE (05:30)
[2018-01-11] MEDS ORDERED: CALCIUM GLUCONATE 1000 MG/10 ML INJ IV ONE (05:40)
[2018-01-11] MEDS: PIPERACILLIN SODIUM/TAZOBACTAM 3.375 GM in NORMAL SALINE 100 ML IV SCH ×4 (05:41→23:32)
[2018-01-11] MEDS: POTASSIUM CHLORIDE 20 MEQ/50 ML RTU IV SCH ×2 (05:42→08:26)
[2018-01-11] MEDS ORDERED: CALCIUM GLUCONATE 2,000 MG in DEXTROSE 5%-WATER 100 ML IV ONE (05:45)
[2018-01-11 06:06] LABS: GLUCOSE 503 mg/dL (75-110)
[2018-01-11] MEDS ORDERED: 1/2 NORMAL SALINE 1,000 ML with POTASSIUM CHLORIDE 40 MEQ IV PRN ×2 (07:46)
[2018-01-11] MEDS ORDERED: MAGNESIUM SULFATE 4 GM/100 ML RTUPB IV ONE (09:00)
[2018-01-11] MEDS: DOCUSATE SODIUM 100 MG CAPSULE PO SCH (09:12)
[2018-01-11] MEDS: FAMOTIDINE INJ/PF 20 MG/2 ML SDV IV SCH ×2 (09:18→21:24)
[2018-01-11] MEDS: ENOXAPARIN SODIUM INJ 30 MG/0.3 ML DISP.SYRIN SUBCUT SCH (09:19)
--- NOTE | 2018-01-11 10:07 | PDOC PROGRESS REPORT ---
Subjective Progress Note for:: 01/11/18 Subjective:: Appears to be somewhat better today. She is a little bit more awake. She is still requiring Levophed as she is hypotensive currently on 9 micrograms per minute. She has minimal urine output however I believe this is likely from intravascular volume depletion. Bladder scan revealed minimal residual urine and her kidney function is actually better today. We will continue to rehydrate her Reason For Visit: SEPSIS,HYPERNATREMIC DEHYDRATION,HYPOKALEMIA Physical Exam Vital Signs: Temp Pulse Resp BP Pulse Ox 98.1 F 71 17 118/65 98 01/11/18 08:00 01/11/18 08:00 01/11/18 08:00 01/11/18 08:00 01/11/18 08:00 Intake & Output 01/10/18 01/11/18 01/12/18 06:59 06:59 06:59 Intake Total 8099 Output Total 50 Balance 8049 Weight 58.4 kg General appearance: PRESENT: no acute distress, thin, other - Elderly ill looking but not toxic malnourished female Head exam: PRESENT: atraumatic, normocephalic Eye exam: PRESENT: conjunctiva pink, EOMI, PERRLA. ABSENT: scleral icterus Mouth exam: PRESENT: dry mucosa, tongue midline Neck exam: ABSENT: carotid bruit, JVD, lymphadenopathy, thyromegaly Respiratory exam: PRESENT: clear to auscultation lucy. ABSENT: rales, rhonchi, wheezes Cardiovascular exam: PRESENT: irregular rhythm, +S1, +S2, systolic murmur. ABSENT: diastolic murmur, rubs Pulses: PRESENT: normal dorsalis pedis pul GI/Abdominal exam: PRESENT: normal bowel sounds, soft. ABSENT: distended, guarding, mass, organolmegaly, rebound, tenderness Rectal exam: PRESENT: deferred Extremities exam: PRESENT: full ROM. ABSENT: calf tenderness, clubbing, pedal edema Musculoskeletal exam: PRESENT: ambulatory, deformity, other - Upper extremity contractures Neurological exam: PRESENT: alert, motor sensory deficit, other - Less lethargic Psychiatric exam: PRESENT: suicidal ideation Skin exam: PRESENT: dry, other - Huge sacral decubitus ulcer with clean margins. ABSENT: cyanosis Results Laboratory Results: 01/11/18 04:13 01/11/18 04:13 01/10/18 01/10/18 01/10/18 17:35 19:11 19:11 WBC RBC Hgb Hct MCV MCH MCHC RDW Plt Count Sodium Potassium Chloride Carbon Dioxide Anion Gap BUN Creatinine Est GFR ( Amer) Est GFR (Non-Af Amer) Glucose Lactic Acid 4.7 H 5.2 H Calcium Magnesium 1.3 L 01/11/18 01/11/18 04:13 04:13 WBC 14.4 H RBC 3.31 L Hgb 9.1 L Hct 28.2 L MCV 85 MCH 27.5 MCHC 32.3 RDW 16.3 H Plt Count 304 Sodium 137.3 Potassium 3.1 L Chloride 103 Carbon Dioxide 18 L D Anion Gap 16 BUN 20 Creatinine 1.54 H Est GFR ( Amer) 39 L Est GFR (Non-Af Amer) 32 L Glucose 503 H* Lactic Acid Calcium 5.9 L* Magnesium Impressions: Chest X-Ray 01/10/18 13:45 IMPRESSION: HEART ENLARGED WITHOUT FAILURE. NO OTHER SIGNIFICANT RADIOGRAPHIC FINDING IN THE CHEST. Assessment & Plan - Diagnosis (1) Sepsis Qualifiers: Sepsis type: sepsis due to unspecified organism Qualified Code(s): A41.9 - Sepsis, unspecified organism Is this a current diagnosis for this admission?: Yes Plan: She appears to be clinically improved the condition still very tenuous. We will continue with the current empiric antibiotics and de-escalate or adjust as needed (2) Hypokalemia Is this a current diagnosis for this admission?: Yes Plan: We will continue to replace along with replacing magnesium (3) ARF (acute renal failure) Qualifiers: Is this a current diagnosis for this admission?: Yes Plan: Kidney function is somewhat improved although actually not terribly bad. She is somewhat oliguric however this may be from high intravascular volume depletion. The good news is that her creatinine is improving. We will keep a close eye on her urine output (4) Anemia Is this a current diagnosis for this admission?: Yes Plan: Hemoglobin is stable (5) Decubital ulcer Qualifiers: Pressure ulcer location: sacral region Pressure ulcer stage: stage 4 Qualified Code(s): L89.154 - Pressure ulcer of sacral region, stage 4 Is this a current diagnosis for this admission?: Yes Plan: We will obtain surgical consult as she had a wound VAC at discharge a few weeks ago (6) Hypernatremia Is this a current diagnosis for this admission?: Yes Plan: Hyponatremia is corrected however she is now hypoglycemic as we did give her D5 and a quarter. Will switch IV fluids. (7) Dementia Qualifiers: Dementia type: unspecified type Dementia behavioral disturbance: without behavioral disturbance Qualified Code(s): F03.90 - Unspecified dementia without behavioral disturbance Is this a current diagnosis for this admission?: Yes Plan: This is chronic likely with superimposed metabolic encephalopathy from acute infection (8) Sacral decubitus ulcer, stage IV Is this a current diagnosis for this admission?: Yes (9) Atrial fibrillation Qualifiers: Atrial fibrillation type: unspecified Qualified Code(s): I48.91 - Unspecified atrial fibrillation Is this a current diagnosis for this admission?: Yes (10) Diabetes mellitus Qualifiers: Diabetes mellitus type: type 2 Diabetes mellitus long term care pharmacist insulin use: unspecified [facility] insulin use status Diabetes mellitus complication status : with unspecified complications Qualified Code(s): E11.8 - Type 2 diabetes mellitus with unspecified complications Is this a current diagnosis for this admission?: Yes Plan: Hypoglycemia is made worse with iatrogenic D5 that she had received for hyponatremia. Will place her back on sliding scale insulin and judicious replacement insulin. Will start up back on a diet if she can tolerate (11) Hypomagnesemia Is this a current diagnosis for this admission?: Yes Plan: We will replace - Time Time Spent with patient: 25-34 minutes Medications reviewed and adjusted accordingly: Yes Anticipated discharge: SNF Within: within 72 hours - Inpatient Certification Based on my medical assessment, after consideration of the patient's comorbidities, presenting symptoms, or acuity I expect that the services needed warrant INPATIENT care.: Yes Medical Necessity: Need For IV Fluids, Need for IV Antibiotics, Risk of Complication if Not Cared For in Hospital - Plan Summary Plan Summary: Prognosis is pretty poor
[2018-01-11] MEDS ORDERED: DEXTROSE 50%-WATER SYRINGE 12.5 GM/25 ML DOSE IV PRN (11:14)
[2018-01-11] MEDS ORDERED: DEXTROSE 40% GEL 15 GM TUBE PO PRN (11:14)
[2018-01-11] MEDS ORDERED: DEXTROSE 50%-WATER SYRINGE 25 GM/50 ML DOSE IV PRN (11:14)
[2018-01-11] MEDS ORDERED: DEXTROSE 40% GEL 15 GM TUBE X 2 PO PRN (11:14)
[2018-01-11] MEDS ORDERED: GLUCAGON,HUMAN RECOMB 1 MG INJ IM PRN (11:14)
[2018-01-11] MEDS: INSULIN LISPRO 100 UNIT/ML 3 ML VIAL SUBCUT PRN (12:34)
[2018-01-11] MEDS ORDERED: RINGERS SOLUTION,LACTATED 1,000 ML IV ONE (14:15)
[2018-01-11 16:33] LABS: ALANINE AMINOTRANSFERASE 39 U/L (9-52); ALBUMIN 2.3 g/dL (3.5-5.0); ALKALINE PHOSPHATASE 131 U/L (38-126); ANION GAP 15 (5-19); ASPARTATE AMINO TRANSFERASE 101 U/L (14-36); BILIRUBIN,DIRECT 0.6 mg/dL (0.0-0.4); BILIRUBIN,TOTAL 0.7 mg/dL (0.2-1.3); BLOOD UREA NITROGEN 20 mg/dL (7-20); CARBON DIOXIDE 18 mmol/L (22-30); CHLORIDE 103 mmol/L (98-107); GLUCOSE 131 mg/dL (75-110); POTASSIUM 3.7 mmol/L (3.6-5.0); SODIUM 135.6 mmol/L (137-145); TOTAL PROTEIN 5.1 g/dL (6.3-8.2)
[2018-01-11 16:45] LABS: CALCIUM 6.8 mg/dL (8.4-10.2)
[2018-01-11] MEDS ORDERED: NORMAL SALINE 500 ML IV ONE (23:45)
[2018-01-12] MEDS ORDERED: LIDOCAINE 1% INJ-PF (10 MG/ML) 30 ML SDV ONE (00:21)
--- NOTE | 2018-01-12 01:04 | RADIOLOGY REPORT (SQ) ---
EXAM DESCRIPTION: XR CHEST 1 VIEW COMPLETED DATE/TME: 01/12/2018 00:00 CLINICAL HISTORY: central line placement COMPARISON: 01/11/2020 FINDINGS: Single frontal view of the chest. Cardiomediastinal silhouette is stable. Left subclavian central venous catheter tip in the high right atrium. Leads and monitoring devices overlie the chest. Low lung volumes. Possible small left pleural effusion. No pneumothorax or no lobar consolidation. Osseous structures are stable. Upper abdominal soft tissues are unremarkable. IMPRESSION: 1. Right IJ central venous catheter with tip in the high right atrium. No pneumothorax. Otherwise stable appearance of the chest.
[2018-01-12] MEDS: DEXTROSE 5%-WATER 250 ML with NOREPINEPHRINE BITARTRATE 4 MG IV PRN ×8 (01:33→19:46)
[2018-01-12] MEDS ORDERED: PHENYLEPHRINE HCL INJ/PF 10 MG/1 ML SDV ONE ×2 (02:33→05:59)
[2018-01-12] MEDS: DEXTROSE 5%-WATER 250 ML with PHENYLEPHRINE HCL 40 MG IV PRN ×6 (02:37→15:25)
[2018-01-12] MEDS: PIPERACILLIN SODIUM/TAZOBACTAM 3.375 GM in NORMAL SALINE 100 ML IV SCH ×2 (05:16→12:44)
[2018-01-12 05:32] LABS: HEMATOCRIT 27.2 % (36.0-47.0); MEAN CORPUSCULAR HGB CONC 33.3 g/dL (32.0-36.0); MEAN CORPUSCULAR VOLUME 84 fl (80-97); PLATELET COUNT 301 10^3/uL (150-450); RED BLOOD COUNT 3.23 10^6/uL (3.72-5.28); RED CELL DISTRIBUTION WIDTH 16.1 % (11.5-14.0); WHITE BLOOD COUNT 14.8 10^3/uL (4.0-10.5)
[2018-01-12 05:42] LABS: ANION GAP 13 (5-19); BLOOD UREA NITROGEN 20 mg/dL (7-20); CARBON DIOXIDE 19 mmol/L (22-30); CHLORIDE 102 mmol/L (98-107); GLUCOSE 179 mg/dL (75-110); PHOSPHORUS 3.6 mg/dL (2.5-4.5); SODIUM 133.7 mmol/L (137-145)
[2018-01-12 06:01] LABS: POTASSIUM 4.9 mmol/L (3.6-5.0)
[2018-01-12 06:02] LABS: CALCIUM 6.9 mg/dL (8.4-10.2)
[2018-01-12] MEDS ORDERED: CALCIUM GLUCONATE 1,000 MG in DEXTROSE 5%-WATER 50 ML IV ONE (06:15)
[2018-01-12] MEDS: INSULIN LISPRO 100 UNIT/ML 3 ML VIAL SUBCUT PRN ×2 (06:19→14:07)
[2018-01-12] MEDS ORDERED: CALCIUM GLUCONATE 1000 MG/10 ML INJ IV ONE (06:20)
--- NOTE | 2018-01-12 06:20 | OPERATIVE REPORT E ---
Operative Report NAME: JESSICA STREET : 1935 AGE: 82Y DATE OF SURGERY: 01/11/2018 ROOM: 609 PREOPERATIVE DIAGNOSIS: Poor veins for IV access. POSTOPERATIVE DIAGNOSIS: Poor veins for IV access. OPERATION: Placement of right subclavian vein triple lumen catheter. SURGEON: KELTON GIFFORD M.D. ANESTHESIA: Local. INDICATION: This is an 82-year-old female who needed IV medications and fluids. Nurses have been unable to get decent vein in the upper extremities. PROCEDURE: After adequate position of the patient in a Trendelenburg position, the right neck and upper chest were then prepped and draped in the usual sterile fashion. The patient has contracture of the neck and also the extremities. Attempt to use the ultrasound to look at the internal jugular vein was done, but somehow I was not able to cannulate the internal jugular vein after a few times. Next, anesthesia infiltrated along the right infraclavicular area and this time the right subclavian vein was then punctured and guidewire passed through the needle towards the area of the superior vena cava. Dilator was then placed to dilate the insertion site and a triple lumen catheter was then inserted through the guidewire to a distance about 15 cm towards the superior vena cava. All the 3 ports aspirated easily and easily instilled saline. The catheter was then anchored to the skin with 3-0 silk. Biopatch placed at the insertion site. Transpire dressing placed over the Biopatch and catheter. Chest x-ray will be obtained for placement. The patient tolerated the procedure well. DICTATING PHYSICIAN: KELTON GIFFORD M.D. [id number] Y#: [id number] ID: [id number] JOB#: [id number] ACCT: [id number] cc:KELTON GIFFORD M.D. >
[2018-01-12] MEDS ORDERED: FUROSEMIDE INJ/PF 40 MG/4 ML SDV IV ONE (10:00)
[2018-01-12] MEDS: FAMOTIDINE INJ/PF 20 MG/2 ML SDV IV SCH ×2 (10:14→23:17)
[2018-01-12] MEDS: ENOXAPARIN SODIUM INJ 30 MG/0.3 ML DISP.SYRIN SUBCUT SCH (10:15)
[2018-01-12] MEDS: VANCOMYCIN HCL 500 MG in DEXTROSE 5%-WATER 100 ML IV SCH (10:35)
[2018-01-12] MEDS: NORMAL SALINE 1000 ML 1,000 ML IV PRN ×2 (10:40→20:40)
[2018-01-12] MEDS: DOCUSATE SODIUM 100 MG CAPSULE PO SCH (10:49)
[2018-01-12] MEDS ORDERED: PIPERACILLIN SODIUM/TAZOBACTAM 2.25 GM in NORMAL SALINE 50 ML IV SCH (14:00)
--- NOTE | 2018-01-12 15:53 | PDOC PROGRESS REPORT ---
Subjective Progress Note for:: 01/12/18 Subjective:: Appears to be somewhat better today. She is a little bit more awake. She is still requiring Levophed currently on 9 micrograms per minute and she was started on Valeriy-Synephrine during the night due to persistently hypotensive. It appears that has diastolic blood pressure tends to run low but she has responded nicely to Valeriy and will plan to wean off as tolerated to keep her map around 65 She still has minimal urine output however I believe this is likely from intravascular volume depletion. Bladder scan revealed minimal residual urine and her kidney function is minimally decreased. We will continue to rehydrate her Reason For Visit: SEPSIS,HYPERNATREMIC DEHYDRATION,HYPOKALEMIA Physical Exam Vital Signs: Temp Pulse Resp BP Pulse Ox 97.3 F 83 13 120/39 L 100 01/12/18 04:59 01/12/18 13:35 01/12/18 15:00 01/12/18 14:52 01/12/18 15:00 Intake & Output 01/11/18 01/12/18 01/13/18 06:59 06:59 06:59 Intake Total 8099 5763 Output Total 50 50 90 Balance 8049 5713 -90 Weight 58.4 kg 63 kg General appearance: PRESENT: thin, other - Elderly and frail. ABSENT: well- nourished Head exam: PRESENT: atraumatic Ear exam: PRESENT: normal external ear exam Mouth exam: PRESENT: dry mucosa Neck exam: ABSENT: carotid bruit, JVD, lymphadenopathy, thyromegaly Respiratory exam: PRESENT: clear to auscultation lucy. ABSENT: rales, rhonchi, wheezes Cardiovascular exam: PRESENT: irregular rhythm, +S1, +S2 Pulses: PRESENT: normal dorsalis pedis pul GI/Abdominal exam: PRESENT: normal bowel sounds, soft. ABSENT: distended, guarding, mass, organolmegaly, rebound, tenderness Rectal exam: PRESENT: deferred Extremities exam: PRESENT: pedal edema Musculoskeletal exam: ABSENT: ambulatory Neurological exam: PRESENT: alert, awake. ABSENT: oriented to person, oriented to place, oriented to time, oriented to situation Skin exam: PRESENT: other - Huge sacral decubitus stage IV with clean margins and no definite exudates or discharges seen Results Laboratory Results: 01/12/18 05:20 01/12/18 05:20 06/01/12/18 01/12/18 16:01 05:20 05:20 WBC 14.8 H RBC 3.23 L Hgb 9.0 L Hct 27.2 L MCV 84 MCH 28.0 MCHC 33.3 RDW 16.1 H Plt Count 301 Sodium 135.6 L 133.7 L Potassium 3.7 4.9 D Chloride 103 102 Carbon Dioxide 18 L 19 L Anion Gap 15 13 BUN 20 20 Creatinine 1.67 H 1.88 H Est GFR ( Amer) 36 L 31 L Est GFR (Non-Af Amer) 29 L 26 L Glucose 131 H 179 H Calcium 6.8 L* 6.9 L* Ionized Calcium [place] Phosphorus 3.6 Magnesium 2.3 D 2.2 Total Bilirubin 0.7 AST 101 H ALT 39 Alkaline Phosphatase 131 H Total Protein 5.1 L Albumin 2.3 L 01/12/18 05:45 WBC RBC Hgb Hct MCV MCH MCHC RDW Plt Count Sodium Potassium Chloride Carbon Dioxide Anion Gap BUN Creatinine Est GFR ( Amer) Est GFR (Non-Af Amer) Glucose Calcium Ionized Calcium [place] 0.99 L Phosphorus Magnesium Total Bilirubin AST ALT Alkaline Phosphatase Total Protein Albumin Impressions: Chest X-Ray 01/12/18 00:00 IMPRESSION: 1. Right IJ central venous catheter with tip in the high right atrium. No pneumothorax. Otherwise stable appearance of the chest. Assessment & Plan - Diagnosis (1) Sepsis Qualifiers: Sepsis type: sepsis due to unspecified organism Qualified Code(s): A41.9 - Sepsis, unspecified organism Is this a current diagnosis for this admission?: Yes Plan: Patient was brought in septic and till now I am still really not sure what the source of infection is. The only aspect will be large sacral decubitus that was present on admission however this on visual inspection does not appear to be infected. A surgical consult has been requested for further evaluation (2) Hypokalemia Is this a current diagnosis for this admission?: Yes Plan: Replaced (3) ARF (acute renal failure) Qualifiers: Is this a current diagnosis for this admission?: Yes Plan: This patient is oliguric with only 50 mL of urine out within the last 24 hours since been in hospital over the last 72 hours she is about 12 L cumulative positive fluid balance. I did order a dose of Lasix today as her blood pressures better and will wait and see the results (4) Anemia Is this a current diagnosis for this admission?: Yes Plan: Hemoglobin is stable (5) Decubital ulcer Qualifiers: Pressure ulcer location: sacral region Pressure ulcer stage: stage 4 Qualified Code(s): L89.154 - Pressure ulcer of sacral region, stage 4 Is this a current diagnosis for this admission?: Yes Plan: Surgical evaluation (6) Hypernatremia Is this a current diagnosis for this admission?: Yes Plan: Resolved (7) Dementia Qualifiers: Dementia type: unspecified type Dementia behavioral disturbance: without behavioral disturbance Qualified Code(s): F03.90 - Unspecified dementia without behavioral disturbance Is this a current diagnosis for this admission?: Yes Plan: This is chronic likely with superimposed metabolic encephalopathy from acute infection (8) Sacral decubitus ulcer, stage IV Is this a current diagnosis for this admission?: Yes (9) Atrial fibrillation Qualifiers: Atrial fibrillation type: unspecified Qualified Code(s): I48.91 - Unspecified atrial fibrillation Is this a current diagnosis for this admission?: Yes Plan: She remains in atrial fibrillation but controlled (10) Diabetes mellitus Qualifiers: Diabetes mellitus type: type 2 Diabetes mellitus intermodal customer service insulin use: unspecified [employer] customer service insulin use status Diabetes mellitus complication status : with unspecified complications Qualified Code(s): E11.8 - Type 2 diabetes mellitus with unspecified complications Is this a current diagnosis for this admission?: Yes (11) Hypomagnesemia Is this a current diagnosis for this admission?: Yes Plan: Corrected - Time Time Spent with patient: 25-34 minutes Medications reviewed and adjusted accordingly: Yes Anticipated discharge: SNF Within: within 72 hours - Inpatient Certification Based on my medical assessment, after consideration of the patient's comorbidities, presenting symptoms, or acuity I expect that the services needed warrant INPATIENT care.: Yes Medical Necessity: Need For IV Fluids, Need for IV Antibiotics - Plan Summary Plan Summary: This patient's prognosis is very poor. He remains a full code as per family's request. We may need to revisit this at a later date or request palliative care consult to have a talk with the family
[2018-01-12] MEDS: PIPERACILLIN SODIUM/TAZOBACTAM 2.25 GM in NORMAL SALINE 50 ML IV SCH (19:25)
[2018-01-13] MEDS: PIPERACILLIN SODIUM/TAZOBACTAM 2.25 GM in NORMAL SALINE 50 ML IV SCH ×3 (01:26→18:05)
[2018-01-13] MEDS: NORMAL SALINE INJ/PF 0.9% 10 ML SDV IV PRN (05:04)
[2018-01-13 05:22] LABS: HEMOGLOBIN 8.1 g/dL (12.0-15.5); MEAN CORPUSCULAR HEMOGLOBIN 28.1 pg (27.0-33.4); MEAN CORPUSCULAR HGB CONC 33.7 g/dL (32.0-36.0); MEAN CORPUSCULAR VOLUME 83 fl (80-97); PLATELET COUNT 188 10^3/uL (150-450); RED BLOOD COUNT 2.88 10^6/uL (3.72-5.28); WHITE BLOOD COUNT 11.6 10^3/uL (4.0-10.5)
[2018-01-13 05:36] LABS: ALANINE AMINOTRANSFERASE 89 U/L (9-52); ALBUMIN 2.1 g/dL (3.5-5.0); ALKALINE PHOSPHATASE 116 U/L (38-126); ANION GAP 9 (5-19); ASPARTATE AMINO TRANSFERASE 121 U/L (14-36); BILIRUBIN,DIRECT 0.7 mg/dL (0.0-0.4); BILIRUBIN,TOTAL 0.9 mg/dL (0.2-1.3); BLOOD UREA NITROGEN 20 mg/dL (7-20); CALCIUM 7.2 mg/dL (8.4-10.2); CARBON DIOXIDE 18 mmol/L (22-30); CHLORIDE 106 mmol/L (98-107); GLUCOSE 98 mg/dL (75-110); SODIUM 133.2 mmol/L (137-145); TOTAL PROTEIN 4.7 g/dL (6.3-8.2)
[2018-01-13] MEDS: NORMAL SALINE 1000 ML 1,000 ML IV PRN (06:11)
--- NOTE | 2018-01-13 08:35 | PROGRESS NOTE E ---
Progress Note NAME: JESSICA STREET : 1935 AGE: 82Y DATE: 01/13/2018 ROOM: 609 SUBJECTIVE: The patient is currently lying in bed. The patient was able to awaken to say she was not in pain, but otherwise was unable to provide any history. The patient was sleeping. I did call and discuss the case with the patient's daughter, who is also her surrogate decision-maker, Cristina Platt at [phone]. We did have a discussion regarding the patient's code status and felt that the patient would want a natural and that she would not want to have any of the trauma associated with cardiopulmonary resuscitation, nor artificial ventilation. Also, does not feel the patient would want hemodialysis either. The patient has had no episodes of nausea or vomiting. The patient has been weaned completely from vasopressors at this point as the Valeriy-Synephrine has been stopped for almost 24 hours and Levophed has been off for 12. The patient as diuresed yesterday with decent benefit; however, the patient does not appear to be in any sort of respiratory distress. No other concerns are voiced at this time. REVIEW OF SYSTEMS: The rest of the review of systems is unobtainable. MEDICATIONS: Medications have been reviewed. OBJECTIVE: GENERAL: The patient is an 82-year-old female who is awake, alert, but not fully oriented. She is kind of groggy, does not appear to be distressed. VITAL SIGNS: As follows: Temperature is 97.6, pulse 78, respirations 17, blood pressure 98/58, oxygen saturation is 100% on 4L nasal cannula. SKIN: Warm. She is not diaphoretic. HEENT: Pupils are reactive. Mucous membranes appear moist. The patient does not have any over evidence of JVP. CARDIOVASCULAR: Heart is regular. CHEST: Difficult to auscultate given the patient's contractures or lack of cooperation for examination, but does sound diminished and unlabored. ABDOMEN: Soft, nontender. Nondistended. BACK: No evidence of sacral edema. EXTREMITIES: The patient does have significant bilateral upper extremity edema, which appears dependent, associated with the patient's contractures. Lower extremities have trace edema. PSYCHIATRIC: Unable to fully assess. DIAGNOSTICS Lab values are as follows: Hematology obtained on 01/13/2018: WBC 11.6, hemoglobin 9.1, hematocrit 24.0, platelet count 198,000. Chemistry obtained on 01/13/2018: Sodium 133, potassium 4.0, chloride 106, carbon dioxide 18, BUN 20, creatinine 2.11, glucose 98, calcium 7.2, bilirubin 0.9, AST 121, ALT 89, alkaline phosphatase 116, total protein 4.7, albumin 2.1. BNP 15,000. IMPRESSION AND PLAN: 1. SEPTIC SHOCK. Uncertain of the exact underlying etiology of this, this is improving. The patient is off vasopressors. The patient has a large sacral decubitus, but does not appear to be overtly infected. We will continue with broad-spectrum antibiotic coverage and follow. 2. HYPOKALEMIA. This has been repleted. 3. ACUTE RENAL FAILURE. The patient does have a solitary kidney. It appears just earlier this month the patient's creatinine was 0.67. The patient is in significantly positive fluid balance. Therefore, we will defer diuresis for now, but also hold IV fluids and monitor. 4. ANEMIA. Most likely dilutional effect, although she does appear to have chronic disease anemia. We will follow. 5. SACRAL DECUBITUS ULCER. This is stage IV. Surgical evaluation. 6. HYPERNATREMIA. The patient is actually hyponatremic, we will follow. 7. DEMENTIA. This is also superimposed with metabolic encephalopathy from acute infection. We will follow. 8. ATRIAL FIBRILLATION. The patient remains rate controlled. The patient is not on chronic anticoagulation given her overall functional capacity. 9. DIABETES MELLITUS TYPE 2. We will continue Accu-Chek for sliding scale coverage. 10. HYPOMAGNESEMIA. This has been replaced. DISPOSITION: The patient is a Do Not Resuscitate/Do Not Intubate. The patient's prognosis is fair at best. Pending patient's symptomatology and diagnostic findings, we will reevaluate as needed. Time spent on this critical care visit including assessment and plan, physical examination, attempted patient education, and family discussion is 60 minutes. DICTATING PHYSICIAN: ADE VILLEGAS NP [id number] PHY#: [id number] ID: [id number] JOB#: [id number] ACCT: [id number] cc: > [facility]
[2018-01-13] MEDS: FAMOTIDINE INJ/PF 20 MG/2 ML SDV IV SCH ×2 (09:27→21:48)
[2018-01-13] MEDS: ENOXAPARIN SODIUM INJ 30 MG/0.3 ML DISP.SYRIN SUBCUT SCH (09:28)
[2018-01-13] MEDS: DOCUSATE SODIUM 100 MG CAPSULE PO SCH (09:29)
--- NOTE | 2018-01-13 18:59 | PDOC CONSULTATION ---
Consultation Consult Date: 01/13/18 Consult reason:: chronic sacral decubitus ulcer History of Present Illness Admission Date/PCP: 01/10/18 15:54 BITA MEANS History of Present Illness: JESSICA STREET is a 82 year old female with history of sacral decubitus ulcer. We are being consulted for mx. Patient now a DNR status. Past Medical History Cardiac Medical History: Denies: Atrial Fibrillation Pulmonary Medical History: Denies: Tuberculosis Neurological Medical History: Denies: Seizures Endocrine Medical History: Reports: Diabetes Mellitus Type 2 Musculoskeltal Medical History: Reports: Arthritis Psychiatric Medical History: Reports: Dementia, Depression Hematology: Reports: Anemia Past Surgical History Past Surgical History: Reports: Hysterectomy Social History Smoking Status: Unknown if Ever Smoked Frequency of Alcohol Use: None Hx Recreational Drug Use: No Drugs: None Hx Prescription Drug Abuse: No - Advance Directive Resuscitation Status: Do Not Resuscitate Family History Family History: Other - Unobtainable Parental Family History Reviewed: Yes Children Family History Reviewed: No Sibling(s) Family History Reviewed.: No Medication/Allergy Home Medications: Cyanocobalamin (Vitamin B-12) [Vitamin B12] 2,500 mcg PO DAILY 12/19/17 Docusate Sodium [Colace 100 mg Capsule] 100 mg PO BID 12/19/17 Folic Acid [Folvite 1 mg Tablet] 1 mg PO DAILY 12/19/17 Glipizide [Glucotrol 5 mg Tablet] 2.5 mg PO DAILY 12/19/17 Insulin Aspart [Novolog Flexpen] 0 unit SQ .SLIDING SCALE 12/19/17 Mirtazapine [Remeron 15 mg Tablet] 15 mg PO QHS 12/19/17 Omeprazole 20 mg PO DAILY 12/19/17 Allergies/Adverse Reactions: No Known Allergies Allergy (Verified 10/25/13 10:00) Review of Systems ROS unobtainable: Due to mental status - Patient not quite oriented though denies pains. Physical Exam Vital Signs: Temp Pulse Resp BP Pulse Ox 97.4 F 87 17 133/61 H 98 01/13/18 16:00 01/13/18 16:00 01/13/18 18:15 01/13/18 18:05 01/13/18 18:15 Intake & Output 01/12/18 01/13/18 01/14/18 06:59 06:59 06:59 Intake Total 5763 3453 382 Output Total 50 715 190 Balance 5713 2738 192 Weight 63 kg 64.9 kg General appearance: PRESENT: no acute distress Head exam: PRESENT: atraumatic Eye exam: PRESENT: conjunctiva pink Mouth exam: PRESENT: moist Neck exam: PRESENT: other - decresed range of neck motion. Has stiffness to the right Respiratory exam: PRESENT: clear to auscultation lucy Cardiovascular exam: PRESENT: RRR Pulses: PRESENT: normal radial pulses Vascular exam: PRESENT: normal capillary refill GI/Abdominal exam: PRESENT: soft Rectal exam: PRESENT: other - has a large sacral ulcer roughly about 9 cm long x 7 cm wide down to the sacral bone but relatively clean with nothing to debride at this time Neurological exam: PRESENT: awake Psychiatric exam: PRESENT: flat affect Skin exam: PRESENT: normal color, warm Results Laboratory Results: 01/13/18 05:05 01/13/18 05:05 01/13/18 01/13/18 05:05 05:05 WBC 11.6 H RBC 2.88 L Hgb 8.1 L Hct 24.0 L MCV 83 MCH 28.1 MCHC 33.7 RDW 16.0 H Plt Count 188 Sodium 133.2 L Potassium 4.0 Chloride 106 Carbon Dioxide 18 L Anion Gap 9 BUN 20 Creatinine 2.11 H Est GFR ( Amer) 27 L Est GFR (Non-Af Amer) 22 L Glucose 98 Calcium 7.2 L Total Bilirubin 0.9 AST 121 H ALT 89 H Alkaline Phosphatase 116 Total Protein 4.7 L Albumin 2.1 L 01/13/18 05:05 NT-Pro-B Natriuret Pep 54027 H Impressions: Chest X-Ray 01/12/18 00:00 IMPRESSION: 1. Right IJ central venous catheter with tip in the high right atrium. No pneumothorax. Otherwise stable appearance of the chest. Assessment & Plan - Plan Summary Plan Summary: Continue wet to dry dressings over sacral ulcer q 12 hrs. Improve nutrition
[2018-01-13] MEDS ORDERED: ACETAMINOPHEN SOLN 325 MG/10.15 ML UDCUP ONE (19:37)
[2018-01-14] MEDS: PIPERACILLIN SODIUM/TAZOBACTAM 2.25 GM in NORMAL SALINE 50 ML IV SCH ×3 (01:49→17:43)
[2018-01-14 05:32] LABS: MEAN CORPUSCULAR HEMOGLOBIN 28.1 pg (27.0-33.4); MEAN CORPUSCULAR HGB CONC 33.3 g/dL (32.0-36.0); MEAN CORPUSCULAR VOLUME 85 fl (80-97); PLATELET COUNT 221 10^3/uL (150-450); RED BLOOD COUNT 3.19 10^6/uL (3.72-5.28); RED CELL DISTRIBUTION WIDTH 16.2 % (11.5-14.0)
[2018-01-14 05:41] LABS: ANION GAP 16 (5-19); BLOOD UREA NITROGEN 24 mg/dL (7-20); CALCIUM 7.7 mg/dL (8.4-10.2); CARBON DIOXIDE 14 mmol/L (22-30); CHLORIDE 106 mmol/L (98-107); GLUCOSE 79 mg/dL (75-110); POTASSIUM 4.1 mmol/L (3.6-5.0); SODIUM 135.9 mmol/L (137-145)
[2018-01-14] MEDS: DOCUSATE SODIUM 100 MG CAPSULE PO SCH (09:20)
[2018-01-14] MEDS: ENOXAPARIN SODIUM INJ 30 MG/0.3 ML DISP.SYRIN SUBCUT SCH (09:28)
[2018-01-14] MEDS: FAMOTIDINE INJ/PF 20 MG/2 ML SDV IV SCH ×2 (09:28→21:39)
[2018-01-14] MEDS: DEXTROSE 5%-NORMAL SALINE 1,000 ML IV PRN ×2 (09:30→21:41)
[2018-01-14] MEDS: VANCOMYCIN HCL 500 MG in DEXTROSE 5%-WATER 100 ML IV SCH (10:30)
[2018-01-14 10:54] LABS: VANCOMYCIN,TROUGH 11.8 ug/mL (5.0-20.0)
--- NOTE | 2018-01-14 11:00 | PROGRESS NOTE E ---
Progress Note NAME: JESSICA ST[address] : 1935 AGE: 82Y DATE: 01/14/2018 ROOM: 609 SUBJECTIVE: The patient is lying in bed. The patient will answer briefly yes and no but no other review of systems. Patient's overnight urine output fell off. She continues to third space. The creatinine bumped as well. The patient has been afebrile. Her blood pressures have been good enough at this point to remain off the vasopressors, but the patient is unable to voice any concerns at this time. When moving the patient she does appear to be in generalized pain. BRIEF HISTORY: The patient is an 82-year-old longterm resident that was admitted with sepsis thought to be associated with a sacral wound. The patient was just on our service earlier this month for anemia and hypertensive urgency. The patient has been in a steady state of decline with decreased oral intake. The patient is significantly hypoalbuminemic and mildly hyponatremic. The patient who has a solitary kidney presented with a creatinine of 1.52 and in spite of hydration and diuresis creatinine has continued to climb. Matters have been discussed with the family and at this time the patient is getting aggressive medical treatment but is going to be a DNR. The patient has been off vasopressors at this point for a little over 24 hours and output has been scant. The patient has also developed diarrhea which is negative for C. diff. REVIEW OF SYSTEMS: Unobtainable. MEDICATIONS: Reviewed. OBJECTIVE: GENERAL: The patient is an 82-year-old -B[place] female who will awaken but goes right back to sleep. She does not appear to be distressed. VITAL SIGNS: As follows: Temperature is 96.4, pulse 88, respirations 13, blood pressure is 96/64 with a MAP of 74, oxygen saturation is 99% on room air. SKIN: Warm, dry. There is no rash. She is not diaphoretic. HEENT: Pupils are reactive. Conjunctivae pale. There is no evidence of JVP. CARDIOVASCULAR: Heart is regular. No rub. CHEST: Clear, symmetrical, unlabored. ABDOMEN: Soft, nontender, nondistended. EXTREMITIES: The patient does have +2 bilateral upper extremity dependent-appearing third spacing edema as well as bilateral lower extremity +1 third spacing edema. PSYCHIATRIC: The patient is quite sleepy. DIAGNOSTICS: Lab values are as follows. Hematology obtained on 01/14/2018: WBCs are 12.0, hemoglobin is 9.0, hematocrit is 27.0, platelet count is 321,000. Chemistry obtained on 01/14/2018: Sodium is 135, potassium is 4.1, chloride is 106, carbon dioxide is 14, BUN 24, creatinine is 2.49, glucose 79, calcium is 7.7, magnesium is 2.0. IMPRESSION AND PLAN: 1. SEPTIC SHOCK, FELT TO BE DUE TO POSSIBLE SACRAL DECUBITUS ULCER. The patient has been off vasopressors for about 30 hours at this point. Will continue broad-spectrum antibiotic coverage and follow. 2. 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 The patient's creatinine earlier in the month was 0.67. The patient was aggressively hydrated but had a significant positive fluid balance of almost 12 L and, therefore, was diuresed and the patient's creatinine continued to trend upwards. This does appear to be more of an ATN situation. Given the patient's diarrhea and significant third spacing, most likely the patient is intravascularly volume depleted; therefore, will proceed with hydration. Unfortunately, the patient was near hypoglycemic this morning so I am going to have to give her a little dextrose. 3. HYPOKALEMIA; THIS WAS REPLETED. 4. ANEMIA, MOST LIKELY COMBINATION OF A DILUTIONAL EFFECT AND MOST LIKELY UNDERLYING CHRONIC DISEASE. Will follow. 5. HYPERNATREMIA. The patient is actually hyponatremic, but this is relatively mild. Nothing to suggest nephrotic syndrome. Will follow. 6. DEMENTIA SUPERIMPOSED WITH METABOLIC ENCEPHALOPATHY DUE TO ACUTE INFECTION. Will follow. 7. ATRIAL FIBRILLATION. The patient remains rate controlled. The patient is not on chronic anticoagulation given her overall functional capacity. 8. DIABETES MELLITUS, TYPE 2. Will continue Accu-Cheks as well as sliding-scale coverage. 9. HYPOMAGNESEMIA. This has been replaced. 10. MALNUTRITION. The patient's albumin is quite low. She does have significant third spacing edema. The patient's oral intake has been quite poor. Will consult Palliative Care to offer guidance and options to this nice family. DISPOSITION: THE PATIENT IS DO NOT RESUSCITATE/DO NOT INTUBATE. The patient's prognosis is guarded at best. Pending the patient's symptomatology and diagnostic findings, will re-evaluate as needed. Time spent on this followup, including assessment/plan, physical examination, attempted patient education, and review of records, is 35 minutes. DICTATING PHYSICIAN: ADE VILLEGAS NP [id number] PHY#: [id number] ID: [id number] JOB#: [id number] ACCT: [id number] cc: >
--- NOTE | 2018-01-14 15:58 | Progress Note ---
Provider Note Provider Note: ID Consult Note Asked to review patient's chart by Pharmacy. Patient not seen or examined. Ms Willis is a 82 year old female shelter resident with dementia, DM, AF and sacral decubitus ulcer who presented on 01/10 with altered mental status. She was described on exam as ill but nontoxic appearing, having upper extremity contractures, NABS, soft abdomen without peritoneal signs, lethargy, and stage IV sacral ulcer with clean margins, minimal drainage and clean appearing exposed tissue. She has not had fever. Her hematologic and metabolic abnormalities on admission included leukocytosis with WBC 16.5k on admission, which has decreased over the past 5 days to 12k, initial hypernatremia 150.5 on presentation, which was corrected. Total bilirubin has been normal, with slight elevation in direct bilirubin, and elevation in AST to 100-150 and ALT up to 89. She required vasopressor support along with IVF for suspected intravascular volume depletion. CXR on 01/10 showed no pneumonia. Blood cultures on admission on 01/10 have been negative x 4 days. Urinalysis showed 1 WBC/hpf, negative nitrites or LE, and grew 10-20k cfu viridans group Strep. C difficile PCR of stool done when pt developed 5 stools over 24h on 01/13 was negative. Pt is reported to have a solitary kidney. She has been on vancomycin and Zosyn and has had an increase in serum creatinine since admission of 1.5 to 2.5. Impression/Recommendations Shock, hypovolemic vs septic - Pt was suspected of having intravascular volume depletion on admission but was also empirically treated for unclear source of sepsis with broad spectrum antibiotics while awaiting further studies. U/A is inconsisent with UTI. CXR showed no evidence of pneumonia. Decubitus ulcer is described as clean appearing on exam - unlikely source of infection. BCx negative. - Based on chart review, I do not see a clear indication for continuing anti- MRSA activity. Recommend discontinuing vancomycin on basis of negative blood cultures. Of note, the patient has increasing creatinine, which may be multifactorial but to which vancomycin potentially could be contributing. - If there is no identified infection, consider discontinuing both Zosyn and vancomycin and monitoring the patient. If infection is still suspected, such as an from intraabdominal source, Zosyn alone without vancomycin should be sufficient for empiric antibiotic activity while studies are undertaken to confirm. Giuliano Virgen MD [facility] pager [phone]
[2018-01-14] MEDS: INSULIN LISPRO 100 UNIT/ML 3 ML VIAL SUBCUT PRN (22:36)
[2018-01-15] MEDS: PIPERACILLIN SODIUM/TAZOBACTAM 2.25 GM in NORMAL SALINE 50 ML IV SCH ×2 (02:07→10:28)
[2018-01-15 04:47] LABS: HEMATOCRIT 26.5 % (36.0-47.0); HEMOGLOBIN 8.9 g/dL (12.0-15.5); MEAN CORPUSCULAR HEMOGLOBIN 27.9 pg (27.0-33.4); MEAN CORPUSCULAR HGB CONC 33.6 g/dL (32.0-36.0); MEAN CORPUSCULAR VOLUME 83 fl (80-97); PLATELET COUNT 236 10^3/uL (150-450); RED BLOOD COUNT 3.18 10^6/uL (3.72-5.28); RED CELL DISTRIBUTION WIDTH 16.1 % (11.5-14.0); WHITE BLOOD COUNT 11.3 10^3/uL (4.0-10.5)
[2018-01-15 04:51] LABS: ALANINE AMINOTRANSFERASE 77 U/L (9-52); ALBUMIN 2.1 g/dL (3.5-5.0); ALKALINE PHOSPHATASE 114 U/L (38-126); ANION GAP 15 (5-19); ASPARTATE AMINO TRANSFERASE 47 U/L (14-36); BILIRUBIN,DIRECT 0.6 mg/dL (0.0-0.4); BILIRUBIN,TOTAL 0.6 mg/dL (0.2-1.3); BLOOD UREA NITROGEN 25 mg/dL (7-20); CALCIUM 7.6 mg/dL (8.4-10.2); CARBON DIOXIDE 16 mmol/L (22-30); CHLORIDE 109 mmol/L (98-107); GLUCOSE 112 mg/dL (75-110); POTASSIUM 3.4 mmol/L (3.6-5.0); SODIUM 139.6 mmol/L (137-145); TOTAL PROTEIN 4.9 g/dL (6.3-8.2)
[2018-01-15] MEDS ORDERED: POTASSIUM CHLORIDE 20 MEQ/15 ML UDCUP PO SCH (06:00)
[2018-01-15] MEDS: DOCUSATE SODIUM 100 MG CAPSULE PO SCH (09:31)
[2018-01-15] MEDS: ENOXAPARIN SODIUM INJ 30 MG/0.3 ML DISP.SYRIN SUBCUT SCH (10:26)
[2018-01-15] MEDS: FAMOTIDINE INJ/PF 20 MG/2 ML SDV IV SCH ×2 (10:28→22:27)
--- NOTE | 2018-01-15 14:12 | PDOC PROGRESS REPORT ---
Subjective Progress Note for:: 01/15/18 Subjective:: He is 82 years old black female patient who is a [facility] resident referred to us for altered mental status. Patient is awake but she is nonverbal. She is contracted both upper and lower extremities. She is also edematous on both upper and lower extremities. Reason For Visit: SEPSIS,HYPERNATREMIC DEHYDRATION,HYPOKALEMIA Physical Exam Vital Signs: Temp Pulse Resp BP Pulse Ox 97.3 F 113 H 15 118/79 99 01/15/18 12:00 01/15/18 12:00 01/15/18 12:00 01/15/18 12:00 01/15/18 12:00 Intake & Output 01/14/18 01/15/18 01/16/18 06:59 06:59 06:59 Intake Total 569 1676 240 Output Total 375 399 160 Balance 194 1277 80 Weight 65 kg 65.6 kg General appearance: PRESENT: mild distress Head exam: PRESENT: atraumatic, normocephalic Neck exam: PRESENT: carotid bruit Respiratory exam: PRESENT: decreased breath sounds Cardiovascular exam: PRESENT: tachycardia Extremities exam: PRESENT: other - Contracted upper and lower extremities Results Laboratory Results: 01/15/18 04:20 01/15/18 04:20 01/15/18 01/15/18 04:20 04:20 WBC 11.3 H RBC 3.18 L Hgb 8.9 L Hct 26.5 L MCV 83 MCH 27.9 MCHC 33.6 RDW 16.1 H Plt Count 236 Sodium 139.6 Potassium 3.4 L Chloride 109 H Carbon Dioxide 16 L Anion Gap 15 BUN 25 H Creatinine 2.60 H Est GFR ( Amer) 21 L Est GFR (Non-Af Amer) 18 L Glucose 112 H Calcium 7.6 L Magnesium 1.9 Total Bilirubin 0.6 AST 47 H ALT 77 H Alkaline Phosphatase 114 Total Protein 4.9 L Albumin 2.1 L 01/13/18 05:05 NT-Pro-B Natriuret Pep [id number] H Impressions: Chest X-Ray 01/12/18 00:00 IMPRESSION: 1. Right IJ central venous catheter with tip in the high right atrium. No pneumothorax. Otherwise stable appearance of the chest. Assessment & Plan - Diagnosis (1) Altered mental status Qualifiers: Altered mental status type: disorientation Qualified Code(s): R41.0 - Disorientation, unspecified Is this a current diagnosis for this admission?: Yes Plan: Etiology unknown maybe metabolic encephalopathy (2) Sacral decubitus ulcer, stage IV Is this a current diagnosis for this admission?: Yes Plan: I discontinued the antibiotics namely vancomycin and Zosyn since there is no identifiable source of infection and reportedly the sacral decubitus ulcer is not draining and it is rather granulating. (3) Anemia Is this a current diagnosis for this admission?: Yes Plan: Anemia of chronic disease. (4) ARF (acute renal failure) Qualifiers: Is this a current diagnosis for this admission?: Yes Plan: It is worsening. (5) Hyponatremia Is this a current diagnosis for this admission?: Yes Plan: Resolved
[2018-01-15] MEDS: DEXTROSE 5%-NORMAL SALINE 1,000 ML IV PRN (22:28)
--- NOTE | 2018-01-15 23:42 | Palliative Consultation Report ---
Consultation From:: RYAN APPIAH Consult Reason: palliaitve care consult - HPI HPI: Palliative Care Consult visit 01/15/18 12:20 PM Appreciate palliative care consult with this 82 year old woman who has been a long time resident of [facility] due to advanced dementia. She was brought to ER due to AMS and admitted with septic shock, most likely related to the stage 4 decubitus on her sacral area. This patient was hospitalized in December for atrial fib and wound deterioration. Per records, she returned to [facility] with wound vac for the sacral wound. But was able to eat and talk some. At present she is very weak, murmurs yes/no to questions and looks extremely frail. She was treated with fluids for her hypotension but now has some edema in extremities and facial tissues. She did deny pain and smiled appropriately to conversation. Her lood cultures were negative, but urine culture was positive for streptococcus. Nursing reports that her daughter just left to return to her home in [place]. Zachariah Caal was able to talk with daughter about care options and futility of heroics. Daughter did agree to DNR but apparently wants other treatments continued at this time. Maintaining fluid and electrolyte balance is an issue at this time but patient is off pressors and blood pressure has been stable. Onset: Just prior to arrival Onset/Duration: Sudden Pain Level: Denies Associated Symptoms: Weakness Past Medical History(Consults) - General Information Source: [facility] Records Home Medications: Cyanocobalamin (Vitamin B-12) [Vitamin B12] 2,500 mcg PO DAILY 12/19/17 Docusate Sodium [Colace 100 mg Capsule] 100 mg PO BID 12/19/17 Folic Acid [Folvite 1 mg Tablet] 1 mg PO DAILY 12/19/17 Glipizide [Glucotrol 5 mg Tablet] 2.5 mg PO DAILY 12/19/17 Insulin Aspart [Novolog Flexpen] 0 unit SQ .SLIDING SCALE 12/19/17 Mirtazapine [Remeron 15 mg Tablet] 15 mg PO QHS 12/19/17 Omeprazole 20 mg PO DAILY 12/19/17 Allergies/Adverse Reactions: No Known Allergies Allergy (Verified 10/25/13 10:00) - Social History Lives with: [facility] Family History: None, Other - Unobtainable Parental Family History Reviewed: No Children Family History Reviewed: No Sibling(s) Family History Reviewed.: No Smoking Status: Unknown if Ever Smoked Frequency of Alcohol Use: None Drugs: None - Past Medical History Cardiac Medical History: Denies: Hx Atrial Fibrillation Pulmonary Medical History: Denies: Hx Tuberculosis Neurological Medical History: Denies: Hx Seizures Endocrine Medical History: Reports: Hx Diabetes Mellitus Type 2 Renal/ Medical History: Denies: Hx Peritoneal Dialysis Musculoskeltal Medical History: Reports Hx Arthritis Skin Medical History: Reports Other - SACRAL DECUBITUS Psychiatric Medical History: Reports: Hx Dementia, Hx Depression Hematology: Reports: Anemia - Surgical History Past Surgical History: Reports: Hx Hysterectomy Review of systems ROS unobtainable: due to mental statu Ojective:Exam Vital Signs: Temp Pulse Resp BP Pulse Ox 96.8 F L 105 H 19 128/74 H 99 01/15/18 19:46 01/15/18 18:00 01/15/18 18:00 01/15/18 18:00 01/15/18 18:00 Intake & Output 01/14/18 01/15/18 01/16/18 06:59 06:59 06:59 Intake Total 569 1676 1120 Output Total 375 399 540 Balance 194 1277 580 Weight 65 kg 65.6 kg - General General Appearance: Sleeping/easily aroused - HEENT Eyes: Normal Mouth/Lips: Normal Mucous membrane: Moist - Respiratory Respiratory Status: No respiratory distress Breath sounds: Rhonchi - Neurological Orientation: Alert, Oriented to person - Psychological Associated symptoms: Normal affect Objective-Diagnostic Laboratory: 01/15/18 04:20 01/15/18 04:20 01/15/18 01/15/18 04:20 04:20 WBC 11.3 H RBC 3.18 L Hgb 8.9 L Hct 26.5 L MCV 83 MCH 27.9 MCHC 33.6 RDW 16.1 H Plt Count 236 Sodium 139.6 Potassium 3.4 L Chloride 109 H Carbon Dioxide 16 L Anion Gap 15 BUN 25 H Creatinine 2.60 H Est GFR ( Amer) 21 L Est GFR (Non-Af Amer) 18 L Glucose 112 H Calcium 7.6 L Magnesium 1.9 Total Bilirubin 0.6 AST 47 H ALT 77 H Alkaline Phosphatase 114 Total Protein 4.9 L Albumin 2.1 L 01/13/18 05:05 NT-Pro-B Natriuret Pep [id number] H Plan and Recommendation Plan and Recommendation: Unfortunately, patient's daughter has returned to [place] today. I will try to reach her by telephone tomorrow. Patient is comfortable today, awakens for short times and is able to answer yes/no and smile. She does have edema and continued renal issues. Most likely, patient will return to [facility] on discharge. I will speak to daughter about possible hospice support for her at facility. If they want her to continue to be brought to hospital for aggressive care, we can offer palliative support at [facility]. However, patient is so frail, I would not be surprised if she does not live long. [place] follow and offer support for family. - Time Spent with Patient Time spent with patient: 15 to 30 Minutes Time: 30 min
[2018-01-16] MEDS: DOCUSATE SODIUM 100 MG CAPSULE PO SCH (09:38)
[2018-01-16] MEDS: ENOXAPARIN SODIUM INJ 30 MG/0.3 ML DISP.SYRIN SUBCUT SCH (09:41)
[2018-01-16] MEDS: FAMOTIDINE INJ/PF 20 MG/2 ML SDV IV SCH ×2 (09:42→22:33)
[2018-01-16 12:03] LABS: ANION GAP 15 (5-19); BLOOD UREA NITROGEN 25 mg/dL (7-20); CALCIUM 7.5 mg/dL (8.4-10.2); CARBON DIOXIDE 15 mmol/L (22-30); CHLORIDE 112 mmol/L (98-107); GLUCOSE 167 mg/dL (75-110); SODIUM 141.8 mmol/L (137-145)
[2018-01-16 12:14] LABS: POTASSIUM 2.8 mmol/L (3.6-5.0)
[2018-01-16] MEDS: POTASSIUM CHLORIDE 20 MEQ/50 ML RTU IV SCH ×4 (13:26→22:33)
--- NOTE | 2018-01-16 15:32 | PDOC PROGRESS REPORT ---
Subjective Progress Note for:: 01/16/18 Subjective:: I seen patient lying in bed. Her kidney function is deteriorating with GFR of 17 and creatinine of 2.71. She has also hypokalemia which has been repleted. I have a long discussion with her daughter regarding patient's deteriorating condition and also offered the option of comfort care and hospice. She accepts is a idea but she wants a second opinion from her daughter. Reason For Visit: SEPSIS,HYPERNATREMIC DEHYDRATION,HYPOKALEMIA Physical Exam Vital Signs: Temp Pulse Resp BP Pulse Ox 96.8 F L 99 14 113/54 L 99 01/16/18 12:00 01/16/18 12:00 01/16/18 14:00 01/16/18 12:10 01/16/18 12:00 Intake & Output 01/15/18 01/16/18 01/17/18 06:59 06:59 06:59 Intake Total 1676 1450 120 Output Total 399 865 200 Balance 1277 585 -80 Weight 65.6 kg 66.5 kg General appearance: PRESENT: mild distress Eye exam: PRESENT: conjunctiva pink Mouth exam: PRESENT: moist Neck exam: ABSENT: carotid bruit, JVD, lymphadenopathy, thyromegaly Respiratory exam: PRESENT: clear to auscultation lucy. ABSENT: rales, rhonchi, wheezes Cardiovascular exam: PRESENT: irregular rhythm. ABSENT: diastolic murmur, rubs , systolic murmur Extremities exam: PRESENT: other - She has anasarca Results Laboratory Results: 01/15/18 04:20 01/16/18 11:25 01/16/18 11:25 Sodium 141.8 Potassium 2.8 L* Chloride 112 H Carbon Dioxide 15 L Anion Gap 15 BUN 25 H Creatinine 2.71 H Est GFR ( Amer) 20 L Est GFR (Non-Af Amer) 17 L Glucose 167 H Calcium 7.5 L 01/13/18 05:05 NT-Pro-B Natriuret Pep [id number] H Impressions: Chest X-Ray 01/12/18 00:00 IMPRESSION: 1. Right IJ central venous catheter with tip in the high right atrium. No pneumothorax. Otherwise stable appearance of the chest. Assessment & Plan - Diagnosis (1) Altered mental status Qualifiers: Altered mental status type: disorientation Qualified Code(s): R41.0 - Disorientation, unspecified Is this a current diagnosis for this admission?: Yes Plan: Patient is at her baseline (2) Sacral decubitus ulcer, stage IV Is this a current diagnosis for this admission?: Yes (3) Anemia Is this a current diagnosis for this admission?: Yes Plan: Anemia of chronic disease. (4) ARF (acute renal failure) Qualifiers: Is this a current diagnosis for this admission?: Yes Plan: It is getting worse. (5) Hyponatremia Is this a current diagnosis for this admission?: Yes Plan: Corrected (6) Hypokalemia Is this a current diagnosis for this admission?: Yes Plan: We will replete
--- NOTE | 2018-01-16 19:13 | Progress Note ---
Provider Note Provider Note: Palliative Care note: I did speak with Cristina Platt, patient's daughter today on the telephone. I offered support and offered to help her with decisions as her mother approaches time for discharge. We briefly discussed her edema, labs and weakness. Her GFR has decreased from 31 to 22 this week but she has needed diuretics to remove the fluid given while she was hypotensive. Her albumin has dropped some also since she is not eating but a few bites. Time will tell if she can regain strength to eat. Daughter was in a public place and had difficulty talking with me. She said she would call at another time to continue the conversation. I told her that hospice could follow her mother at [facility] for some extra care and support or, if she continues to decline there would be other options available (hospice care center). She will call me another time and we can discuss further. Will follow.
[2018-01-16] MEDS: NORMAL SALINE INJ/PF 0.9% 10 ML SDV IV PRN (22:33)
[2018-01-17] MEDS: NORMAL SALINE INJ/PF 0.9% 10 ML SDV IV PRN (06:31)
[2018-01-17 07:11] LABS: ANION GAP 13 (5-19); BLOOD UREA NITROGEN 23 mg/dL (7-20); CALCIUM 7.7 mg/dL (8.4-10.2); CARBON DIOXIDE 17 mmol/L (22-30); CHLORIDE 115 mmol/L (98-107); GLUCOSE 121 mg/dL (75-110); POTASSIUM 3.7 mmol/L (3.6-5.0); SODIUM 144.6 mmol/L (137-145)
[2018-01-17] MEDS ORDERED: NORMAL SALINE 1000 ML 1,000 ML IV PRN (08:36)
[2018-01-17] MEDS: FAMOTIDINE INJ/PF 20 MG/2 ML SDV IV SCH ×2 (09:13→22:37)
[2018-01-17] MEDS: ENOXAPARIN SODIUM INJ 30 MG/0.3 ML DISP.SYRIN SUBCUT SCH (09:13)
[2018-01-17] MEDS: DOCUSATE SODIUM 100 MG CAPSULE PO SCH (09:13)
[2018-01-17] MEDS ORDERED: FUROSEMIDE INJ/PF 40 MG/4 ML SDV IV ONE (09:30)
[2018-01-17] MEDS: INSULIN LISPRO 100 UNIT/ML 3 ML VIAL SUBCUT PRN ×2 (11:33→16:58)
--- NOTE | 2018-01-17 12:14 | PDOC PROGRESS REPORT ---
Subjective Subjective:: Patient resting quietly. She responds to verbal stimuli just by opening her eyes. States she has extensive edema. Her hypokalemia has been corrected. Palliative care has been discussing the patient with her daughter about the level of care. Currently patient is DNR. Since patient's condition is deteriorating she is a candidate for hospice placement. Reason For Visit: SEPSIS,HYPERNATREMIC DEHYDRATION,HYPOKALEMIA Physical Exam Vital Signs: Temp Pulse Resp BP Pulse Ox 97.5 F 45 L 20 126/59 H 70 L 01/17/18 07:08 01/17/18 07:08 01/17/18 07:08 01/17/18 07:08 01/17/18 07:08 Intake & Output 01/16/18 01/17/18 01/18/18 06:59 06:59 06:59 Intake Total 1450 1216 Output Total 865 1015 Balance 585 201 Weight 66.5 kg 79.8 kg General appearance: PRESENT: no acute distress Head exam: PRESENT: atraumatic Neck exam: ABSENT: carotid bruit, JVD, lymphadenopathy, thyromegaly Respiratory exam: PRESENT: clear to auscultation lucy. ABSENT: rales, rhonchi, wheezes Cardiovascular exam: PRESENT: RRR. ABSENT: diastolic murmur, rubs, systolic murmur Results Laboratory Results: 01/15/18 04:20 01/17/18 06:30 01/16/18 01/17/18 11:25 06:30 Sodium 141.8 144.6 Potassium 2.8 L* 3.7 Chloride 112 H 115 H Carbon Dioxide 15 L 17 L Anion Gap 15 13 BUN 25 H 23 H Creatinine 2.71 H 2.54 H Est GFR ( Amer) 20 L 22 L Est GFR (Non-Af Amer) 17 L 18 L Glucose 167 H 121 H Calcium 7.5 L 7.7 L 01/13/18 05:05 NT-Pro-B Natriuret Pep [id number] H Impressions: Chest X-Ray 01/12/18 00:00 IMPRESSION: 1. Right IJ central venous catheter with tip in the high right atrium. No pneumothorax. Otherwise stable appearance of the chest. Assessment & Plan - Diagnosis (1) Altered mental status Qualifiers: Altered mental status type: disorientation Qualified Code(s): R41.0 - Disorientation, unspecified Is this a current diagnosis for this admission?: Yes Plan: Patient is at her baseline (2) Sacral decubitus ulcer, stage IV Is this a current diagnosis for this admission?: Yes Plan: I discontinued the antibiotics namely vancomycin and Zosyn since there is no identifiable source of infection and reportedly the sacral decubitus ulcer is not draining and it is rather granulating. (3) Anemia Is this a current diagnosis for this admission?: Yes Plan: Anemia of chronic disease. (4) ARF (acute renal failure) Qualifiers: Is this a current diagnosis for this admission?: Yes Plan: It is getting worse. (5) Hyponatremia Is this a current diagnosis for this admission?: Yes Plan: Corrected (6) Hypokalemia Is this a current diagnosis for this admission?: Yes Plan: Corrected
--- NOTE | 2018-01-17 23:54 | Progress Note ---
Provider Note Provider Note: Palliative Care follow up visit 01/17/18 10:15 Am Brief visit to check on patietn who is much more alert than a few days ago. Denies pain and is talking more. Nurses are working with patient. As per note from yesterday, I did speak briefly with Mrs. Armijo daughter , but she has not called me back yet. Will discuss hospice or palliaitve care following patient for support when she returns to [place]. Will follow Nonbillable visit today.
[2018-01-18] MEDS: NORMAL SALINE INJ/PF 0.9% 10 ML SDV IV PRN ×2 (05:46→21:25)
[2018-01-18] MEDS: ENOXAPARIN SODIUM INJ 30 MG/0.3 ML DISP.SYRIN SUBCUT SCH (09:27)
[2018-01-18] MEDS: DOCUSATE SODIUM 100 MG CAPSULE PO SCH (09:27)
[2018-01-18] MEDS: FAMOTIDINE INJ/PF 20 MG/2 ML SDV IV SCH (09:27)
[2018-01-18] MEDS: DEXTROSE 5%-NORMAL SALINE 1,000 ML IV PRN (13:20)
--- NOTE | 2018-01-18 14:03 | PDOC PROGRESS REPORT ---
Subjective Progress Note for:: 01/18/18 Subjective:: Patient is resting in bed in the same condition. Her hypothermia resolved. P.o. intake is very limited. I discussed the case with machine shop specialist was going to adjust her feedings and albuterol also on appetite stimulant. Reason For Visit: SEPSIS,HYPERNATREMIC DEHYDRATION,HYPOKALEMIA Physical Exam Vital Signs: Temp Pulse Resp BP Pulse Ox 97.5 F 98 12 126/82 H 97 01/18/18 11:05 01/18/18 11:05 01/18/18 11:05 01/18/18 11:05 01/18/18 11:05 Intake & Output 01/17/18 01/18/18 01/19/18 06:59 06:59 06:59 Intake Total 1216 2130 Output Total 1015 2425 Balance 201 -295 Weight 79.8 kg 79.4 kg General appearance: PRESENT: no acute distress Mouth exam: PRESENT: moist Respiratory exam: PRESENT: clear to auscultation lucy. ABSENT: rales, rhonchi, wheezes Cardiovascular exam: PRESENT: RRR. ABSENT: diastolic murmur, rubs, systolic murmur Results Laboratory Results: 01/15/18 04:20 01/17/18 06:30 01/17/18 18:26 Stool Occult Blood NEGATIVE 01/13/18 05:05 NT-Pro-B Natriuret Pep [id number] H Impressions: Chest X-Ray 01/12/18 00:00 IMPRESSION: 1. Right IJ central venous catheter with tip in the high right atrium. No pneumothorax. Otherwise stable appearance of the chest. Assessment & Plan - Diagnosis (1) Altered mental status Qualifiers: Altered mental status type: disorientation Qualified Code(s): R41.0 - Disorientation, unspecified Is this a current diagnosis for this admission?: Yes Plan: Patient is at her baseline (2) Sacral decubitus ulcer, stage IV Is this a current diagnosis for this admission?: Yes Plan: I discontinued the antibiotics namely vancomycin and Zosyn since there is no identifiable source of infection and reportedly the sacral decubitus ulcer is not draining and it is rather granulating. (3) Anemia Is this a current diagnosis for this admission?: Yes Plan: Anemia of chronic disease. (4) ARF (acute renal failure) Qualifiers: Is this a current diagnosis for this admission?: Yes Plan: Stable (5) Hyponatremia Is this a current diagnosis for this admission?: Yes Plan: Corrected (6) Hypokalemia Is this a current diagnosis for this admission?: Yes Plan: Corrected
[2018-01-18] MEDS ORDERED: PHARMACY COMMUNICATION ORDER MC NR (17:00)
--- NOTE | 2018-01-18 18:13 | RADIOLOGY REPORT (SQ) ---
EXAM DESCRIPTION: KUB/ABDOMEN (SINGLE VIEW) COMPLETED DATE/TIME: 01/18/2018 5:44 pm REASON FOR STUDY: Check Placement of NG Tube COMPARISON: None. NUMBER OF VIEWS: One view. TECHNIQUE: Supine radiographic image of the abdomen acquired. LIMITATIONS: None. FINDINGS: Nasogastric catheter is coiled in the body of the stomach with tip projecting over the upp er lateral body. Bowel gas pattern appears nonobstructive. Lung bases appear clear. BONES: No acute fracture. OTHER: No other significant finding. IMPRESSION: Nasogastric catheter is coiled in the body of the stomach with tip projecting over the u pper lateral body. TECHNICAL DOCUMENTATION: JOB ID: [id number]- All Rights Reserved Reading location - IP/workstation name: [email or web address]
[2018-01-19] MEDS: NORMAL SALINE INJ/PF 0.9% 10 ML SDV IV PRN ×2 (05:03→21:32)
[2018-01-19] MEDS: INSULIN LISPRO 100 UNIT/ML 3 ML VIAL SUBCUT PRN (07:50)
[2018-01-19] MEDS: DOCUSATE SODIUM 100 MG CAPSULE PO SCH (09:13)
[2018-01-19] MEDS: ENOXAPARIN SODIUM INJ 30 MG/0.3 ML DISP.SYRIN SUBCUT SCH (09:15)
[2018-01-19] MEDS: FAMOTIDINE INJ/PF 20 MG/2 ML SDV IV SCH (09:16)
--- NOTE | 2018-01-19 11:25 | PDOC PROGRESS REPORT ---
Subjective Progress Note for:: 01/19/18 Subjective:: Patient is resting in bed. She is awake but nonverbal. And his tube was inserted and patient started on Glucerna supplemental feeding. She started to have A. fib with RVR after the insertion of the NG tube. Reason For Visit: SEPSIS,HYPERNATREMIC DEHYDRATION,HYPOKALEMIA Physical Exam Vital Signs: Temp Pulse Resp BP Pulse Ox 98.4 F 132 H 20 119/88 H 99 01/19/18 07:16 01/19/18 07:16 01/19/18 07:16 01/19/18 07:16 01/19/18 08:26 Intake & Output 01/18/18 01/19/18 01/20/18 06:59 06:59 06:59 Intake Total 2130 1148 Output Total 2425 700 Balance -295 448 Weight 79.4 kg 84 kg General appearance: PRESENT: no acute distress Respiratory exam: PRESENT: clear to auscultation lucy. ABSENT: rales, rhonchi, wheezes Cardiovascular exam: PRESENT: irregular rhythm, tachycardia GI/Abdominal exam: PRESENT: normal bowel sounds, soft. ABSENT: distended, guarding, mass, organolmegaly, rebound, tenderness Results Laboratory Results: 01/15/18 04:20 01/17/18 06:30 01/13/18 05:05 NT-Pro-B Natriuret Pep [id number] H Impressions: Chest X-Ray 01/12/18 00:00 IMPRESSION: 1. Right IJ central venous catheter with tip in the high right atrium. No pneumothorax. Otherwise stable appearance of the chest. KUB X-Ray 01/18/18 18:00 IMPRESSION: Nasogastric catheter is coiled in the body of the stomach with tip projecting over the upper lateral body. Assessment & Plan - Diagnosis (1) Altered mental status Qualifiers: Altered mental status type: disorientation Qualified Code(s): R41.0 - Disorientation, unspecified Is this a current diagnosis for this admission?: Yes Plan: Stable (2) Sacral decubitus ulcer, stage IV Is this a current diagnosis for this admission?: Yes Plan: I discontinued the antibiotics namely vancomycin and Zosyn since there is no identifiable source of infection and reportedly the sacral decubitus ulcer is not draining and it is rather granulating. (3) Anemia Is this a current diagnosis for this admission?: Yes Plan: Anemia of chronic disease. (4) ARF (acute renal failure) Qualifiers: Is this a current diagnosis for this admission?: Yes Plan: Stable (5) Atrial fibrillation with RVR Is this a current diagnosis for this admission?: Yes Plan: Patient has been started on low-dose Lopressor 12.5 mg twice a day.
[2018-01-19] MEDS ORDERED: METOPROLOL TARTRATE 25 MG TABLET PO ONE (12:30)
--- NOTE | 2018-01-19 22:10 | RADIOLOGY REPORT (SQ) ---
EXAM DESCRIPTION: KUB/ABDOMEN (SINGLE VIEW) COMPLETED DATE/TIME: 01/19/2018 9:59 pm REASON FOR STUDY: Check Placement of NG Tube COMPARISON: 01/18/2018 NUMBER OF VIEWS: One view. TECHNIQUE: Supine radiographic image of the abdomen acquired. LIMITATIONS: None. FINDINGS: BOWEL GAS PATTERN: Normal bowel gas pattern. No dilated loops. CALCIFICATIONS: No suspicious calcifications. SOFT TISSUES: No gross mass or suggestion of organomegaly. HARDWARE: Enteric tube is present with the tip and proximal port projecting subdiaphragmatically with in the left upper quadrant. BONES: No acute findings. OTHER: No other significant finding. IMPRESSION: Enteric tube terminating subdiaphragmatically within the left upper quadrant. TECHNICAL DOCUMENTATION: JOB ID: [id number] [employer]- All Rights Reserved Reading location - IP/workstation name: [email or web address]
[2018-01-19] MEDS: METOPROLOL TARTRATE 25 MG TABLET PO SCH (22:35)
[2018-01-20] MEDS: NORMAL SALINE INJ/PF 0.9% 10 ML SDV IV PRN (05:14)
[2018-01-20] MEDS: METOPROLOL TARTRATE 25 MG TABLET PO SCH ×2 (09:19→22:00)
[2018-01-20] MEDS: FAMOTIDINE INJ/PF 20 MG/2 ML SDV IV SCH (09:19)
[2018-01-20] MEDS: ENOXAPARIN SODIUM INJ 30 MG/0.3 ML DISP.SYRIN SUBCUT SCH (09:20)
[2018-01-20] MEDS: DOCUSATE SODIUM 100 MG CAPSULE PO SCH (09:22)
--- NOTE | 2018-01-20 13:59 | PDOC PROGRESS REPORT ---
Subjective Progress Note for:: 01/20/18 Subjective:: No significant change overnight. Currently the patient is resting in bed. She responds to her name by opening her eyes but she is nonverbal. She is being fed through any history of Glucerna and reportedly she has 150 mL residual so he titrates the rate to 30 mm/h. Reason For Visit: SEPSIS,HYPERNATREMIC DEHYDRATION,HYPOKALEMIA Physical Exam Vital Signs: Temp Pulse Resp BP Pulse Ox 98.6 F 116 H 17 117/74 98 01/20/18 04:00 01/20/18 07:00 01/20/18 04:00 01/20/18 04:00 01/20/18 04:00 Intake & Output 01/19/18 01/20/18 01/21/18 06:59 06:59 06:59 Intake Total 1148 374 Output Total 700 1050 Balance 448 -676 Weight 84 kg 81.4 kg General appearance: PRESENT: no acute distress Mouth exam: PRESENT: dry mucosa Respiratory exam: PRESENT: clear to auscultation lucy. ABSENT: rales, rhonchi, wheezes Cardiovascular exam: PRESENT: RRR. ABSENT: diastolic murmur, rubs, systolic murmur GI/Abdominal exam: PRESENT: normal bowel sounds, soft. ABSENT: distended, guarding, mass, organolmegaly, rebound, tenderness Results Laboratory Results: 01/15/18 04:20 01/17/18 06:30 01/13/18 05:05 NT-Pro-B Natriuret Pep [id number] H Impressions: Chest X-Ray 01/12/18 00:00 IMPRESSION: 1. Right IJ central venous catheter with tip in the high right atrium. No pneumothorax. Otherwise stable appearance of the chest. KUB X-Ray 01/19/18 20:52 IMPRESSION: Enteric tube terminating subdiaphragmatically within the left upper quadrant. Assessment & Plan - Diagnosis (1) Altered mental status Qualifiers: Altered mental status type: disorientation Qualified Code(s): R41.0 - Disorientation, unspecified Is this a current diagnosis for this admission?: Yes Plan: Stable (2) Sacral decubitus ulcer, stage IV Is this a current diagnosis for this admission?: Yes Plan: I discontinued the antibiotics namely vancomycin and Zosyn since there is no identifiable source of infection and reportedly the sacral decubitus ulcer is not draining and it is rather granulating. (3) Anemia Is this a current diagnosis for this admission?: Yes Plan: Anemia of chronic disease. (4) ARF (acute renal failure) Qualifiers: Is this a current diagnosis for this admission?: Yes Plan: Stable (5) Atrial fibrillation with RVR Is this a current diagnosis for this admission?: Yes Plan: Patient has been started on low-dose Lopressor 12.5 mg twice a day. (6) Type 2 diabetes mellitus Is this a current diagnosis for this admission?: Yes Plan: Blood sugar is within normal limits. He is on sliding scale.
[2018-01-20] MEDS: INSULIN LISPRO 100 UNIT/ML 3 ML VIAL SUBCUT PRN (14:18)
[2018-01-21] MEDS: NORMAL SALINE INJ/PF 0.9% 10 ML SDV IV PRN (05:17)
[2018-01-21 06:50] LABS: ANION GAP 12 (5-19); BLOOD UREA NITROGEN 26 mg/dL (7-20); CALCIUM 7.3 mg/dL (8.4-10.2); CARBON DIOXIDE 20 mmol/L (22-30); CHLORIDE 120 mmol/L (98-107); GLUCOSE 136 mg/dL (75-110); SODIUM 151.8 mmol/L (137-145)
[2018-01-21 06:54] LABS: POTASSIUM 2.5 mmol/L (3.6-5.0)
[2018-01-21] MEDS ORDERED: POTASSIUM CHLORIDE 10 MEQ CAPSULE.ER PO ONE (09:00)
[2018-01-21] MEDS ORDERED: POTASSIUM CHLORIDE 20 MEQ/15 ML UDCUP PO ONE ×2 (09:30→13:00)
[2018-01-21] MEDS: METOPROLOL TARTRATE 25 MG TABLET PO SCH (10:08)
[2018-01-21] MEDS: ENOXAPARIN SODIUM INJ 30 MG/0.3 ML DISP.SYRIN SUBCUT SCH (10:08)
[2018-01-21] MEDS: FAMOTIDINE INJ/PF 20 MG/2 ML SDV IV SCH (10:08)
--- NOTE | 2018-01-21 13:50 | PDOC PROGRESS REPORT ---
Subjective Subjective:: This is a 82 years old black female patient transferred from [facility] for altered mental status. Patient has underlying atrial fibrillation, dementia, diabetes mellitus, stage IV sacral decubitus ulcer and she is bedridden and contracted. The possibility of sepsis also considered on this patient and empirically started on vancomycin and cefepime. But no source of infection identified. After discussion with infectious disease specialist her antibiotics were discontinued. Patient has also ongoing acute kidney injury which has been improving evidenced by trending creatinine and liver from 2.6- 1.6. This morning her labs shows hypokalemia with potassium 2.5 which is repleted. I myself and virtual reality specialist have had a long discussion with her daughter who is her POA to make the patient comfort care but she declined. Patient's potential discharge in the coming 48 hours Reason For Visit: SEPSIS,HYPERNATREMIC DEHYDRATION,HYPOKALEMIA Physical Exam Vital Signs: Temp Pulse Resp BP Pulse Ox 97.9 F 124 H 16 125/63 100 01/21/18 07:27 01/21/18 07:27 01/21/18 07:27 01/21/18 07:27 01/21/18 07:27 Intake & Output 01/20/18 01/21/18 01/22/18 06:59 06:59 06:59 Intake Total 374 924 50 Output Total 1050 775 Balance -676 149 50 Weight 81.4 kg 71 kg General appearance: PRESENT: no acute distress Eye exam: PRESENT: conjunctiva pink Mouth exam: PRESENT: moist Neck exam: ABSENT: carotid bruit, JVD, lymphadenopathy, thyromegaly Respiratory exam: PRESENT: clear to auscultation lucy. ABSENT: rales, rhonchi, wheezes Cardiovascular exam: PRESENT: RRR. ABSENT: diastolic murmur, rubs, systolic murmur Results Laboratory Results: 01/15/18 04:20 01/21/18 05:39 01/21/18 05:39 Sodium 151.8 H Potassium 2.5 L* Chloride 120 H Carbon Dioxide 20 L Anion Gap 12 BUN 26 H Creatinine 1.98 H Est GFR ( Amer) 29 L Est GFR (Non-Af Amer) 24 L Glucose 136 H Calcium 7.3 L 01/13/18 05:05 NT-Pro-B Natriuret Pep [id number] H Impressions: Chest X-Ray 01/12/18 00:00 IMPRESSION: 1. Right IJ central venous catheter with tip in the high right atrium. No pneumothorax. Otherwise stable appearance of the chest. KUB X-Ray 01/19/18 20:52 IMPRESSION: Enteric tube terminating subdiaphragmatically within the left upper quadrant. Assessment & Plan - Diagnosis (1) Altered mental status Qualifiers: Altered mental status type: disorientation Qualified Code(s): R41.0 - Disorientation, unspecified Is this a current diagnosis for this admission?: Yes Plan: Stable (2) Sacral decubitus ulcer, stage IV Is this a current diagnosis for this admission?: Yes Plan: I discontinued the antibiotics namely vancomycin and Zosyn since there is no identifiable source of infection and reportedly the sacral decubitus ulcer is not draining and it is rather granulating. (3) Anemia Is this a current diagnosis for this admission?: Yes Plan: Anemia of chronic disease. (4) ARF (acute renal failure) Qualifiers: Is this a current diagnosis for this admission?: Yes Plan: Improving. Her creatinine is trending down from 2.6-1.6 (5) Atrial fibrillation with RVR Is this a current diagnosis for this admission?: Yes Plan: Patient has been started on low-dose Lopressor 12.5 mg twice a day. (6) Type 2 diabetes mellitus Is this a current diagnosis for this admission?: Yes Plan: Blood sugar is within normal limits. He is on sliding scale.
[2018-01-21] MEDS: DOCUSATE SODIUM 100 MG CAPSULE PO SCH (14:00)
[2018-01-22] MEDS: METOPROLOL TARTRATE 25 MG TABLET PO SCH ×2 (00:22→09:41)
[2018-01-22] MEDS: INSULIN LISPRO 100 UNIT/ML 3 ML VIAL SUBCUT PRN (06:10)
[2018-01-22] MEDS: ENOXAPARIN SODIUM INJ 30 MG/0.3 ML DISP.SYRIN SUBCUT SCH (09:40)
[2018-01-22] MEDS: FAMOTIDINE INJ/PF 20 MG/2 ML SDV IV SCH (09:40)
[2018-01-22] MEDS: DOCUSATE SODIUM 100 MG CAPSULE PO SCH (09:41)
[2018-01-22] MEDS ORDERED: METOPROLOL TARTRATE 25 MG TABLET PO ONE (09:58)
[2018-01-22] MEDS: SENNOSIDES/DOCUSATE 8.6-50 MG 1 EACH TABLET NG SCH (17:00)
--- NOTE | 2018-01-22 18:49 | PDOC PROGRESS REPORT ---
Subjective Progress Note for:: 01/22/18 Subjective:: The patient is resting comfortably. No new complaints. Nursing has recorded high heart rates (130-140 range) this morning. The patient has been asymptomatic. Reason For Visit: SEPSIS,HYPERNATREMIC DEHYDRATION,HYPOKALEMIA Physical Exam Vital Signs: Temp Pulse Resp BP Pulse Ox 98.4 F 82 20 118/59 L 97 01/22/18 11:42 01/22/18 14:00 01/22/18 11:42 01/22/18 11:42 01/22/18 03:13 Intake & Output 01/21/18 01/22/18 01/23/18 06:59 06:59 06:59 Intake Total 221 99 2644 Output Total 775 200 250 Balance 149 -120 1681 Weight 71 kg 69.8 kg General appearance: PRESENT: no acute distress, thin, well-developed, other - The patient appears elderly, weak, and frail. Head exam: PRESENT: atraumatic, normocephalic Eye exam: PRESENT: conjunctiva pink, PERRLA. ABSENT: scleral icterus Ear exam: PRESENT: normal external ear exam Neck exam: ABSENT: carotid bruit, JVD, lymphadenopathy, thyromegaly Respiratory exam: PRESENT: other - No increased work of breathing. No wheezes, rales, or rhonchi. No tactile fremitus.. ABSENT: rales, rhonchi, wheezes Cardiovascular exam: PRESENT: RRR, other - No lateral PMI. No thrills.. ABSENT : diastolic murmur, rubs, systolic murmur Pulses: PRESENT: other - Diminished distal pulses. Vascular exam: PRESENT: pallor GI/Abdominal exam: PRESENT: normal bowel sounds, soft. ABSENT: distended, guarding, mass, organolmegaly, rebound, tenderness Rectal exam: PRESENT: deferred Extremities exam: PRESENT: full ROM. ABSENT: calf tenderness, clubbing, pedal edema Neurological exam: PRESENT: alert, awake, oriented to person, oriented to place , oriented to time, oriented to situation, CN II-XII grossly intact. ABSENT: motor sensory deficit Psychiatric exam: PRESENT: appropriate affect, normal mood. ABSENT: homicidal ideation, suicidal ideation Skin exam: PRESENT: dry, intact, warm. ABSENT: cyanosis, rash Results Laboratory Results: 01/15/18 04:20 01/21/18 05:39 01/13/18 05:05 NT-Pro-B Natriuret Pep [id number] H Impressions: Chest X-Ray 01/12/18 00:00 IMPRESSION: 1. Right IJ central venous catheter with tip in the high right atrium. No pneumothorax. Otherwise stable appearance of the chest. KUB X-Ray 01/19/18 20:52 IMPRESSION: Enteric tube terminating subdiaphragmatically within the left upper quadrant. Assessment & Plan - Diagnosis (1) Altered mental status Qualifiers: Altered mental status type: disorientation Qualified Code(s): R41.0 - Disorientation, unspecified Is this a current diagnosis for this admission?: Yes Plan: Resolving. (2) Atrial fibrillation with RVR Is this a current diagnosis for this admission?: Yes Plan: Daytime metoprolol has been increased to 25 mg each am while continuing the pm dose of metoprolol at 12.5 mg due to her occasional low heart rates at night. If this is not successful, pacemaker can be considered, but the patient is non- ambulatory and I am not sure that the risk of the procedure would be worth the risk for this patient. (3) Dementia Qualifiers: Dementia type: Alzheimer's disease Alzheimer's disease onset: unspecified onset Dementia behavioral disturbance: without behavioral disturbance Qualified Code(s): G30.9 - Alzheimer's disease, unspecified; F02.80 - Dementia in other diseases classified elsewhere without behavioral disturbance; F02.80 - Dementia in other diseases classified elsewhere without behavioral disturbance; F02.80 - Dementia in other diseases classified elsewhere without behavioral disturbance Is this a current diagnosis for this admission?: Yes Plan: Continue medications. (4) Hypernatremia Is this a current diagnosis for this admission?: Yes Plan: Improving with IV fluids. Monitor electrolytes. (5) Hypokalemia Is this a current diagnosis for this admission?: Yes Plan: Potassium supplemented. Will monitor electrolytes. (6) Sacral decubitus ulcer, stage IV Is this a current diagnosis for this admission?: Yes (7) Sepsis Qualifiers: Sepsis type: sepsis due to unspecified organism Qualified Code(s): A41.9 - Sepsis, unspecified organism Is this a current diagnosis for this admission?: Yes Plan: Resolved. (8) Type 2 diabetes mellitus Qualifiers: Diabetes mellitus [employer] insulin use: without [employer] foreman use Diabetes mellitus complication status: with circulatory complication Is this a current diagnosis for this admission?: Yes Plan: FSBS and SSI. Hold metformin. Diabetic diet and hypoglycemic protocol. Monitor glucoses. (9) ARF (acute renal failure) Qualifiers: Acute renal failure type: unspecified Is this a current diagnosis for this admission?: Yes Plan: Avoid nephrotoxic agents. Cautious IV fluids. (10) Bedbound Is this a current diagnosis for this admission?: Yes Plan: Chronic. - Time Time Spent with patient: 35 or more minutes Anticipated discharge: SNF Within: within 36 hours
--- NOTE | 2018-01-22 20:47 | EKG REPORT ---
SEVERITY:- ABNORMAL ECG - ATRIAL FIBRILLATION BORDERLINE LEFT AXIS DEVIATION LOW VOLTAGE IN FRONTAL LEADS BORDERLINE T WAVE ABNORMALITIES : Confirmed by: Katey Wilson MD 22-Jan-2018 20:46:08
--- NOTE | 2018-01-22 20:57 | RADIOLOGY REPORT (SQ) ---
EXAM DESCRIPTION: KUB/ABDOMEN (SINGLE VIEW) COMPLETED DATE/TIME: 01/22/2018 8:37 pm REASON FOR STUDY: verify placement of NG tube COMPARISON: 01/19/2018 NUMBER OF VIEWS: One view. TECHNIQUE: Supine radiographic image of the abdomen acquired. LIMITATIONS: None. FINDINGS: BOWEL GAS PATTERN: Normal bowel gas pattern. No dilated loops. CALCIFICATIONS: No suspicious calcifications. SOFT TISSUES: No gross mass or suggestion of organomegaly. HARDWARE: The NG tube is doubled back upon itself in the distal esophagus. BONES: No acute fracture. No worrisome bone lesions. OTHER: No other significant finding. IMPRESSION: The NG tube is doubled back upon itself in the distal esophagus. TECHNICAL DOCUMENTATION: JOB ID: [id number] [employer] All Rights Reserved Reading location - IP/workstation name: [email or web address]
--- NOTE | 2018-01-22 21:15 | RADIOLOGY REPORT (SQ) ---
EXAM DESCRIPTION: KUB/ABDOMEN (SINGLE VIEW) COMPLETED DATE/TIME: 01/22/2018 9:05 pm REASON FOR STUDY: NG tube placement COMPARISON: 01/22/2018 NUMBER OF VIEWS: One view. TECHNIQUE: Supine radiographic image of the abdomen acquired. LIMITATIONS: None. FINDINGS: BOWEL GAS PATTERN: Normal bowel gas pattern. No dilated loops. CALCIFICATIONS: No suspicious calcifications. SOFT TISSUES: No gross mass or suggestion of organomegaly. HARDWARE: The tip of the NG tube appears to be in the gastric fundus. BONES: No acute fracture. No worrisome bone lesions. OTHER: No other significant finding. IMPRESSION: The tip of the NG tube now appears to be in the gastric fundus. TECHNICAL DOCUMENTATION: JOB ID: [id number] [employer]- All Rights Reserved Reading location - IP/workstation name: [email or web address]
[2018-01-22] MEDS: METOPROLOL TARTRATE 25 MG TABLET NG SCH (21:20)
[2018-01-23] MEDS ORDERED: METOPROLOL TARTRATE PF/INJ 5 MG/5 ML SDV IV ONE ×2 (04:09→04:15)
[2018-01-23 06:24] LABS: HEMATOCRIT 26.1 % (36.0-47.0); HEMOGLOBIN 8.9 g/dL (12.0-15.5); MEAN CORPUSCULAR HEMOGLOBIN 28.6 pg (27.0-33.4); MEAN CORPUSCULAR HGB CONC 34.2 g/dL (32.0-36.0); MEAN CORPUSCULAR VOLUME 84 fl (80-97); PLATELET COUNT 169 10^3/uL (150-450); RED BLOOD COUNT 3.12 10^6/uL (3.72-5.28); WHITE BLOOD COUNT 13.5 10^3/uL (4.0-10.5)
[2018-01-23 06:39] LABS: ANION GAP 10 (5-19); BLOOD UREA NITROGEN 28 mg/dL (7-20); CALCIUM 7.6 mg/dL (8.4-10.2); CARBON DIOXIDE 20 mmol/L (22-30); CHLORIDE 121 mmol/L (98-107); GLUCOSE 182 mg/dL (75-110); POTASSIUM 3.9 mmol/L (3.6-5.0); SODIUM 150.8 mmol/L (137-145)
[2018-01-23 06:56] LABS: ABSOLUTE LYMPHOCYTES# (MANUAL) 0.4 10^3/uL (0.5-4.7); ABSOLUTE MONOCYTES # (MANUAL) 1.4 10^3/uL (0.1-1.4); ABSOLUTE NEUTROPHILS# (MANUAL) 11.7 10^3/uL (1.7-8.2); BASOPHILS % (MANUAL) 0 % (0-2); EOSINOPHILS % (MANUAL) 0 % (0-6); LYMPHOCYTES % (MANUAL) 3 % (13-45); MONOCYTES % (MANUAL) 10 % (3-13); SEGMENTED NEUTROPHILS % (MAN) 87 % (42-78); TOTAL CELLS COUNTED 100
[2018-01-23 06:57] LABS: ANISOCYTOSIS 1+; POIKILOCYTOSIS 1+
[2018-01-23 06:58] LABS: BURR CELLS SLIGHT; PLATELET COMMENT ADEQUATE; TARGET CELLS SLIGHT
[2018-01-23] MEDS: METOPROLOL TARTRATE 25 MG TABLET NG SCH ×2 (11:21→22:55)
[2018-01-23] MEDS: SENNOSIDES/DOCUSATE 8.6-50 MG 1 EACH TABLET NG SCH ×2 (11:21→18:04)
[2018-01-23] MEDS: FAMOTIDINE INJ/PF 20 MG/2 ML SDV IV SCH (11:22)
[2018-01-23] MEDS: ENOXAPARIN SODIUM INJ 30 MG/0.3 ML DISP.SYRIN SUBCUT SCH (11:22)
[2018-01-23 14:13] LABS: APPEARANCE,URINE TURBID; BILIRUBIN,URINE NEGATIVE (NEGATIVE); COLOR,URINE AMBER; GLUCOSE, URINE NEGATIVE (NEGATIVE); KETONES,URINE NEGATIVE (NEGATIVE); LEUKOCYTE ESTERASE,URINE LARGE (NEGATIVE); NITRITE,URINE NEGATIVE (NEGATIVE); PROTEIN,URINE 30 mg/dL (NEGATIVE); URINE SPECIFIC GRAVITY 1.014; UROBILINOGEN,URINE NEGATIVE mg/dL (<2.0)
--- NOTE | 2018-01-23 20:05 | PDOC PROGRESS REPORT ---
Subjective Progress Note for:: 01/23/18 Subjective:: The patient is resting comfortably. She pulled out her NGT 3 x overnight. Sitter is present. Reason For Visit: SEPSIS,HYPERNATREMIC DEHYDRATION,HYPOKALEMIA Physical Exam Vital Signs: Temp Pulse Resp BP Pulse Ox 97.8 F 90 20 125/70 100 01/23/18 15:52 01/23/18 15:52 01/23/18 15:52 01/23/18 15:52 01/23/18 15:52 Intake & Output 01/22/18 01/23/18 01/24/18 06:59 06:59 06:59 Intake Total 80 3186 0 Output Total 200 250 250 Balance -120 2936 -250 Weight 69.8 kg 70.3 kg General appearance: PRESENT: no acute distress, thin, other - The patient appears weak, elderly, and frail. She is quite somnolent this morning. Neck exam: ABSENT: JVD, lymphadenopathy, thyromegaly Respiratory exam: PRESENT: other - No increased work of breathing. No wheezes, rales, or rhonchi. No tactile fremitus. Cardiovascular exam: PRESENT: RRR, other - No lateral PMI. No thrills.. ABSENT : gallop, rubs, systolic murmur Pulses: PRESENT: other - Diminished distal pulses. GI/Abdominal exam: PRESENT: normal bowel sounds, soft, other - Scaffoid.. ABSENT: distended, guarding, mass, organolmegaly Extremities exam: ABSENT: calf tenderness, clubbing, pedal edema, tenderness Neurological exam: PRESENT: other - Unable to evaluate as the patient is unable to cooperate with exam. Skin exam: PRESENT: other - Stage IV sacral decubitus ulcer. Additional comments: The patient has a quiroz catheter and a rectal tube as she is incontinent and allowing soiling of her decubitus ulcer with stool or urine will prevent her healing. She currently has an NGT as her oral intake is inadequate to sustain her and to allow healing of the ulcer. Palliative care was consulted and spoke with the family. They ahve made her a DNR, but have stated that they wish to have everything done. The patient will require a PEG tube if she is to discharge to SNF at some point. Results Laboratory Results: 01/23/18 06:00 01/23/18 06:00 01/23/18 01/23/18 01/23/18 06:00 06:00 13:26 WBC 13.5 H RBC 3.12 L Hgb 8.9 L Hct 26.1 L MCV 84 MCH 28.6 MCHC 34.2 RDW 18.0 H Plt Count 169 Seg Neutrophils % Not Reportable Lymphocytes % Not Reportable Monocytes % Not Reportable Eosinophils % Not Reportable Basophils % Not Reportable Absolute Neutrophils Not Reportable Absolute Lymphocytes Not Reportable Absolute Monocytes Not Reportable Absolute Eosinophils Not Reportable Absolute Basophils Not Reportable Sodium 150.8 H Potassium 3.9 Chloride 121 H Carbon Dioxide 20 L Anion Gap 10 BUN 28 H Creatinine 1.61 H Est GFR ( Amer) 37 L Est GFR (Non-Af Amer) 31 L Glucose 182 H Calcium 7.6 L Urine Color JANEL Urine Appearance TURBID Urine pH 5.0 Ur Specific [place] 1.014 Urine Protein 30 H Urine Glucose (UA) NEGATIVE Urine Ketones NEGATIVE Urine Blood LARGE H Urine Nitrite NEGATIVE Ur Leukocyte Esterase LARGE H Urine WBC (Auto) >182 Urine RBC (Auto) 122 01/13/18 05:05 NT-Pro-B Natriuret Pep [id number] H Impressions: Chest X-Ray 01/12/18 00:00 IMPRESSION: 1. Right IJ central venous catheter with tip in the high right atrium. No pneumothorax. Otherwise stable appearance of the chest. KUB X-Ray 01/22/18 00:00 IMPRESSION: The tip of the NG tube now appears to be in the gastric fundus. Assessment & Plan - Diagnosis (1) Altered mental status Qualifiers: Altered mental status type: disorientation Qualified Code(s): R41.0 - Disorientation, unspecified Is this a current diagnosis for this admission?: Yes Plan: Likely chronic and due to advanced dementia. (2) Atrial fibrillation with RVR Is this a current diagnosis for this admission?: Yes Plan: Daytime metoprolol has been increased to 25 mg each am while continuing the pm dose of metoprolol at 12.5 mg due to her occasional low heart rates at night. If this is not successful, pacemaker can be considered, but the patient is non- ambulatory and I am not sure that the risk of the procedure would be worth the risk for this patient. Heart rate is improved. (3) Dementia Qualifiers: Dementia type: Alzheimer's disease Alzheimer's disease onset: unspecified onset Dementia behavioral disturbance: without behavioral disturbance Qualified Code(s): G30.9 - Alzheimer's disease, unspecified; F02.80 - Dementia in other diseases classified elsewhere without behavioral disturbance; F02.80 - Dementia in other diseases classified elsewhere without behavioral disturbance; F02.80 - Dementia in other diseases classified elsewhere without behavioral disturbance Is this a current diagnosis for this admission?: Yes Plan: Continue medications, but dementia is advanced and is the cause for the patient' s poor PO intake. (4) Hypernatremia Is this a current diagnosis for this admission?: Yes Plan: Improving with IV fluids. Monitor electrolytes. (5) Hypokalemia Is this a current diagnosis for this admission?: Yes Plan: Potassium supplemented. Will monitor electrolytes. (6) Sacral decubitus ulcer, stage IV Is this a current diagnosis for this admission?: Yes Plan: NGT tube has been placed to allow for tube feeds. This is necessary as the patient's PO intake is inadequate to sustain her health, or allow for healing of her decubitus ulcer. She will require PRG if she is to discharge to SNF. The patient also has a quiroz catheter and a rectal tube to allow for healing of this wound by preventing contamination of the wound with urine and stool. (7) Sepsis Qualifiers: Sepsis type: sepsis due to unspecified organism Qualified Code(s): A41.9 - Sepsis, unspecified organism Is this a current diagnosis for this admission?: Yes Plan: Resolved. (8) Type 2 diabetes mellitus Qualifiers: Diabetes mellitus nursing home insulin use: without nursing home use Diabetes mellitus complication status: with circulatory complication Is this a current diagnosis for this admission?: Yes Plan: FSBS and SSI. Hold metformin. Diabetic diet and hypoglycemic protocol. Monitor glucoses. (9) ARF (acute renal failure) Qualifiers: Acute renal failure type: unspecified Is this a current diagnosis for this admission?: Yes Plan: Avoid nephrotoxic agents. Monitor. (10) Bedbound Is this a current diagnosis for this admission?: Yes Plan: Chronic. - Time Time Spent with patient: 35 or more minutes Medications reviewed and adjusted accordingly: Yes Anticipated discharge: SNF
--- NOTE | 2018-01-24 05:32 | RADIOLOGY REPORT (SQ) ---
EXAM DESCRIPTION: XR CHEST 1 VIEW COMPLETED DATE/TME: 01/24/2018 04:44 EXAM DESCRIPTION: Single view of the chest CLINICAL HISTORY: NG tube placement verification COMPARISON: 01/12/2018 FINDINGS: Single frontal view of the chest. Right subclavian central venous catheter tip in the right atrium. NG tube with tip and side-port curled in the stomach. Low lung volumes. Cardia megaly. No consolidation, pneumothorax, or pleural effusion. No acute osseous abnormalities identified. Upper abdominal soft tissues are unremarkable. IMPRESSION: 1. NG tube with tip and side-port in the stomach.
[2018-01-24] MEDS: ENOXAPARIN SODIUM INJ 30 MG/0.3 ML DISP.SYRIN SUBCUT SCH (09:36)
[2018-01-24] MEDS: SENNOSIDES/DOCUSATE 8.6-50 MG 1 EACH TABLET NG SCH ×2 (09:37→16:39)
[2018-01-24] MEDS: METOPROLOL TARTRATE 25 MG TABLET NG SCH ×2 (09:37→22:23)
[2018-01-24] MEDS: FAMOTIDINE INJ/PF 20 MG/2 ML SDV IV SCH (09:37)
[2018-01-24] MEDS ORDERED: ONDANSETRON HCL INJ/PF 4 MG/2 ML SDV IV PRN (15:00)
--- NOTE | 2018-01-24 17:42 | PDOC PROGRESS REPORT ---
Subjective Progress Note for:: 01/24/18 Subjective:: The patient is resting comfortably. She continues to pull out her NGT. Sitter is present. Reason For Visit: SEPSIS,HYPERNATREMIC DEHYDRATION,HYPOKALEMIA Physical Exam Vital Signs: Temp Pulse Resp BP Pulse Ox 98.3 F 109 H 20 115/66 93 01/24/18 11:36 01/24/18 14:00 01/24/18 11:36 01/24/18 11:36 01/24/18 11:36 Intake & Output 01/23/18 01/24/18 01/25/18 06:59 06:59 06:59 Intake Total 3186 0 0 Output Total 250 925 200 Balance 2936 -925 -200 Weight 70.3 kg 69.1 kg General appearance: PRESENT: no acute distress, cooperative, other - Conversant this morning. Respiratory exam: PRESENT: other - No increased work of breathng. No wheezes, rales, or rhonchi. No tactile fremitus. Cardiovascular exam: PRESENT: other - No lateal PMI. No thrills.. ABSENT: gallop, RRR, rubs, systolic murmur Pulses: PRESENT: other - Diminished distal pulses. GI/Abdominal exam: PRESENT: normal bowel sounds, soft, other - Scaffoid.. ABSENT: hernia, mass, organolmegaly Extremities exam: ABSENT: clubbing, joint swelling, tenderness, +1 edema Neurological exam: PRESENT: alert, awake, CN II-XII grossly intact, other - confused.. ABSENT: motor sensory deficit Psychiatric exam: PRESENT: other - Unable to evaluate. Skin exam: PRESENT: other - Stage IV sacral decubitus ulcer. Christopher catheter and rectal tube in place to allow the ulcer to heal without contamination with stool land urine. Additional comments: Christopher catheter, rectal tube, feedings by NGT are to promote healing of the stage IV sacral decubitus ulcer. Results Laboratory Results: 01/23/18 06:00 01/23/18 06:00 01/13/18 05:05 NT-Pro-B Natriuret Pep [id number] H Impressions: KUB X-Ray 01/22/18 00:00 IMPRESSION: The tip of the NG tube now appears to be in the gastric fundus. Chest X-Ray 01/24/18 04:44 IMPRESSION: 1. NG tube with tip and side-port in the stomach. Assessment & Plan - Diagnosis (1) Altered mental status Qualifiers: Altered mental status type: disorientation Qualified Code(s): R41.0 - Disorientation, unspecified Is this a current diagnosis for this admission?: Yes (2) Atrial fibrillation with RVR Is this a current diagnosis for this admission?: Yes (3) Dementia Qualifiers: Dementia type: Alzheimer's disease Alzheimer's disease onset: unspecified onset Dementia behavioral disturbance: without behavioral disturbance Qualified Code(s): G30.9 - Alzheimer's disease, unspecified; F02.80 - Dementia in other diseases classified elsewhere without behavioral disturbance; F02.80 - Dementia in other diseases classified elsewhere without behavioral disturbance; F02.80 - Dementia in other diseases classified elsewhere without behavioral disturbance Is this a current diagnosis for this admission?: Yes (4) Hypernatremia Is this a current diagnosis for this admission?: Yes (5) Hypokalemia Is this a current diagnosis for this admission?: Yes (6) Sacral decubitus ulcer, stage IV Is this a current diagnosis for this admission?: Yes (7) Sepsis Qualifiers: Sepsis type: sepsis due to unspecified organism Qualified Code(s): A41.9 - Sepsis, unspecified organism Is this a current diagnosis for this admission?: Yes (8) Type 2 diabetes mellitus Qualifiers: Diabetes mellitus superintendent terminal insulin use: without senior living use Diabetes mellitus complication status: with circulatory complication Is this a current diagnosis for this admission?: Yes (9) ARF (acute renal failure) Qualifiers: Acute renal failure type: unspecified Is this a current diagnosis for this admission?: Yes (10) Bedbound Is this a current diagnosis for this admission?: Yes - Time Time Spent with patient: 25-34 minutes Medications reviewed and adjusted accordingly: Yes Anticipated discharge: SNF
[2018-01-24] MEDS ORDERED: CEFTRIAXONE SODIUM 1,000 MG in DEXTROSE 5%-WATER 100 ML IV SCH (19:00)
[2018-01-24] MEDS: CEFTRIAXONE SODIUM 1,000 MG in DEXTROSE 5%-WATER 50 ML IV SCH (22:23)
[2018-01-25] MEDS: INSULIN LISPRO 100 UNIT/ML 3 ML VIAL SUBCUT PRN (06:43)
[2018-01-25] MEDS: SENNOSIDES/DOCUSATE 8.6-50 MG 1 EACH TABLET NG SCH ×2 (10:41→21:22)
[2018-01-25] MEDS: FAMOTIDINE INJ/PF 20 MG/2 ML SDV IV SCH (10:44)
[2018-01-25] MEDS: ENOXAPARIN SODIUM INJ 30 MG/0.3 ML DISP.SYRIN SUBCUT SCH (10:45)
[2018-01-25] MEDS ORDERED: NORMAL SALINE 1000 ML 500 ML IV ONE (10:55)
[2018-01-25] MEDS: METOPROLOL TARTRATE 25 MG TABLET NG SCH (14:15)
--- NOTE | 2018-01-25 18:24 | PDOC PROGRESS REPORT ---
Subjective Progress Note for:: 01/25/18 Subjective:: The patient is awake, but not communicative. No new complaints. She pulled out her NGT again last night. Reason For Visit: SEPSIS,HYPERNATREMIC DEHYDRATION,HYPOKALEMIA Physical Exam Vital Signs: Temp Pulse Resp BP Pulse Ox 97.6 F 122 H 16 86/70 L 100 01/25/18 11:38 01/25/18 11:38 01/25/18 11:38 01/25/18 11:38 01/25/18 11:38 Intake & Output 01/24/18 01/25/18 01/26/18 06:59 06:59 06:59 Intake Total 0 150 400 Output Total 925 550 200 Balance -925 -400 200 Weight 69.1 kg 70.1 kg General appearance: PRESENT: no acute distress, thin Respiratory exam: PRESENT: other - No increased work of breathing. No wheezes, rales, or rhonchi. No tactile fremitus. Cardiovascular exam: PRESENT: RRR. ABSENT: gallop, rubs, systolic murmur Pulses: PRESENT: other - Diminished distal pulses. GI/Abdominal exam: PRESENT: hernia, normal bowel sounds, soft, other - Scaffoid. ABSENT: distended, mass Extremities exam: ABSENT: clubbing, tenderness, +1 edema Neurological exam: PRESENT: awake. ABSENT: oriented to person, oriented to place, oriented to time, oriented to situation Skin exam: PRESENT: dry, intact, warm, other - except for stage IV sacral decubitus ulcer. Results Laboratory Results: 01/23/18 06:00 01/23/18 06:00 01/23/18 22:10 Catheterized Urine Urine Culture - Final Escherichia Coli 01/13/18 05:05 NT-Pro-B Natriuret Pep [id number] H Impressions: KUB X-Ray 01/22/18 00:00 IMPRESSION: The tip of the NG tube now appears to be in the gastric fundus. Chest X-Ray 01/24/18 04:44 IMPRESSION: 1. NG tube with tip and side-port in the stomach. Assessment & Plan - Diagnosis (1) Altered mental status Qualifiers: Altered mental status type: disorientation Qualified Code(s): R41.0 - Disorientation, unspecified Is this a current diagnosis for this admission?: Yes Plan: Likely chronic and due to advanced dementia. (2) Atrial fibrillation with RVR Is this a current diagnosis for this admission?: Yes Plan: Daytime metoprolol has been increased to 25 mg each am while continuing the pm dose of metoprolol at 12.5 mg due to her occasional low heart rates at night. If this is not successful, pacemaker can be considered, but the patient is non- ambulatory and I am not sure that the risk of the procedure would be worth the risk for this patient. Heart rate is improved. (3) Dementia Qualifiers: Dementia type: Alzheimer's disease Alzheimer's disease onset: unspecified onset Dementia behavioral disturbance: without behavioral disturbance Qualified Code(s): G30.9 - Alzheimer's disease, unspecified; F02.80 - Dementia in other diseases classified elsewhere without behavioral disturbance; F02.80 - Dementia in other diseases classified elsewhere without behavioral disturbance; F02.80 - Dementia in other diseases classified elsewhere without behavioral disturbance Is this a current diagnosis for this admission?: Yes Plan: Continue medications, but dementia is advanced and is the cause for the patient' s poor PO intake. I have discussed this with the patient's daughter. The patient is not eating, due to her advanced dementia and is will not improve. If a PEG is placed it will be for the rest of the patient's life. (4) Hypernatremia Is this a current diagnosis for this admission?: Yes Plan: Improving with IV fluids. Monitor electrolytes. The patient has poor/no PO intake due to advanced dementia. If IV's are removed she will again be hypernatremic and dehydrated. (5) Hypokalemia Is this a current diagnosis for this admission?: Yes (6) Sacral decubitus ulcer, stage IV Is this a current diagnosis for this admission?: Yes Plan: NGT tube has been placed to allow for tube feeds. This is necessary as the patient's PO intake is inadequate to sustain her health, or allow for healing of her decubitus ulcer. She will require PRG if she is to discharge to SNF. The patient also has a quiroz catheter and a rectal tube to allow for healing of this wound by preventing contamination of the wound with urine and stool. I have discussed all of these interventions with the patient's daughter and the complications of each. It is highly unlikely that the patient's wound will heal in any case, and she is quite likely to of complications from these interventions which afford the patient no quality of life. The patient's daughter stated that she would talk to her daughter who is a nurse. I explained comfort care and explained that this would be an alternative to the current course. (7) Sepsis Qualifiers: Sepsis type: sepsis due to unspecified organism Qualified Code(s): A41.9 - Sepsis, unspecified organism Is this a current diagnosis for this admission?: Yes Plan: Resolved. 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 Hold metformin. Diabetic diet and hypoglycemic protocol. Monitor glucoses. (9) ARF (acute renal failure) Qualifiers: Acute renal failure type: unspecified Is this a current diagnosis for this admission?: Yes (10) Bedbound Is this a current diagnosis for this admission?: Yes (11) UTI (urinary tract infection) due to urinary indwelling Quiroz catheter Qualifiers: Indwelling urinary catheter type: indwelling urethral catheter Encounter type: initial encounter Qualified Code(s): T83.511A - Infection and inflammatory reaction due to indwelling urethral catheter, initial encounter; N39.0 - Urinary tract infection, site not specified; N39.0 - Urinary tract infection, site not specified Is this a current diagnosis for this admission?: Yes Plan: IV rocephin pending specificities. The patient's urine culture has grown out E. coli. - Time Time Spent with patient: 35 or more minutes - I spent more than half of this time talking with the patient's daughter. Medications reviewed and adjusted accordingly: Yes Anticipated discharge: SNF
[2018-01-25] MEDS: CEFTRIAXONE SODIUM 1,000 MG in DEXTROSE 5%-WATER 50 ML IV SCH (23:35)
--- NOTE | 2018-01-26 03:26 | RADIOLOGY REPORT (SQ) ---
EXAM DESCRIPTION: XR ABDOMEN 1 VIEW (KUB) COMPLETED DATE/TME: 01/26/2018 02:31 CLINICAL HISTORY: 82 years, Female, NG tube placement verification COMPARISON: 01/22/2018 FINDINGS: NG tube with tip and side-port in the stomach. Leads overlie the abdomen. No dilated loops of large or small bowel. No definite free intraperitoneal air. Osseous structures are stable. IMPRESSION: NG tube with tip and side-port in the stomach. 2010 [employer]- All Rights Reserved
[2018-01-26] MEDS: METOPROLOL TARTRATE 25 MG TABLET NG SCH ×3 (04:07→22:56)
[2018-01-26] MEDS: NORMAL SALINE INJ/PF 0.9% 10 ML SDV IV PRN (05:56)
[2018-01-26 06:39] LABS: ANION GAP 7 (5-19); BLOOD UREA NITROGEN 28 mg/dL (7-20); CALCIUM 7.8 mg/dL (8.4-10.2); CARBON DIOXIDE 23 mmol/L (22-30); CHLORIDE 121 mmol/L (98-107); GLUCOSE 143 mg/dL (75-110); POTASSIUM 3.7 mmol/L (3.6-5.0); SODIUM 151.4 mmol/L (137-145)
[2018-01-26] MEDS: SENNOSIDES/DOCUSATE 8.6-50 MG 1 EACH TABLET NG SCH ×2 (13:36→18:01)
[2018-01-26] MEDS: FAMOTIDINE INJ/PF 20 MG/2 ML SDV IV SCH (13:37)
[2018-01-26] MEDS: INSULIN LISPRO 100 UNIT/ML 3 ML VIAL SUBCUT PRN ×2 (13:37→18:24)
[2018-01-26] MEDS: ENOXAPARIN SODIUM INJ 30 MG/0.3 ML DISP.SYRIN SUBCUT SCH (13:39)
[2018-01-26] MEDS: DEXTROSE 5%-1/2 NORMAL SALINE 1,000 ML IV PRN (13:59)
--- NOTE | 2018-01-26 18:33 | PDOC PROGRESS REPORT ---
Subjective Progress Note for:: 01/26/18 Subjective:: The patient is awake, but not communicative. No new complaints. She pulled out her NGT again last night. Again. Reason For Visit: SEPSIS,HYPERNATREMIC DEHYDRATION,HYPOKALEMIA Physical Exam Vital Signs: Temp Pulse Resp BP Pulse Ox 97.6 F 106 H 17 94/72 L 99 01/26/18 15:51 01/26/18 15:51 01/26/18 15:51 01/26/18 15:51 01/26/18 04:00 Intake & Output 01/25/18 01/26/18 01/27/18 06:59 06:59 06:59 Intake Total 150 1319 Output Total 550 200 200 Balance -400 1119 -200 Weight 70.1 kg 69.4 kg General appearance: PRESENT: no acute distress, other - Not communicative. Respiratory exam: PRESENT: other - No increased work of breathing. No wheezes, rales, or rhonchi. No tactile fremitus. Cardiovascular exam: PRESENT: RRR, other - No lateral PMI. No thrills.. ABSENT : gallop, rubs, systolic murmur Pulses: PRESENT: other - Diminished distal pulses. GI/Abdominal exam: PRESENT: other - Scaffoid. ABSENT: firm, hernia, mass, organolmegaly, soft Extremities exam: ABSENT: calf tenderness, clubbing, tenderness Neurological exam: PRESENT: other - Unable to perform as the patient is unable to cooperate with exam. Psychiatric exam: PRESENT: other - Unable to evaluate due to the patient's inability to cooperate with exam. Skin exam: PRESENT: dry, intact, warm Results Laboratory Results: 01/23/18 06:00 01/26/18 06:00 01/26/18 06:00 Sodium 151.4 H Potassium 3.7 Chloride 121 H Carbon Dioxide 23 Anion Gap 7 BUN 28 H Creatinine 1.10 Est GFR ( Amer) 58 L Est GFR (Non-Af Amer) 48 L Glucose 143 H Calcium 7.8 L 01/13/18 05:05 NT-Pro-B Natriuret Pep [id number] H Impressions: Chest X-Ray 01/24/18 04:44 IMPRESSION: 1. NG tube with tip and side-port in the stomach. KUB X-Ray 01/26/18 02:31 IMPRESSION: NG tube with tip and side-port in the stomach. 2010 [facility] [place] [employer]- All Rights Reserved Assessment & Plan - Diagnosis (1) Altered mental status Qualifiers: Altered mental status type: disorientation Qualified Code(s): R41.0 - Disorientation, unspecified Is this a current diagnosis for this admission?: Yes Plan: Likely chronic and due to advanced dementia. (2) Atrial fibrillation with RVR Is this a current diagnosis for this admission?: Yes Plan: Daytime metoprolol has been increased to 25 mg each am while continuing the pm dose of metoprolol at 12.5 mg due to her occasional low heart rates at night. If this is not successful, pacemaker can be considered, but the patient is non- ambulatory and I am not sure that the risk of the procedure would be worth the risk for this patient. Heart rate is improved. (3) Dementia Qualifiers: Dementia type: Alzheimer's disease Alzheimer's disease onset: unspecified onset Dementia behavioral disturbance: without behavioral disturbance Qualified Code(s): G30.9 - Alzheimer's disease, unspecified; F02.80 - Dementia in other diseases classified elsewhere without behavioral disturbance; F02.80 - Dementia in other diseases classified elsewhere without behavioral disturbance; F02.80 - Dementia in other diseases classified elsewhere without behavioral disturbance Is this a current diagnosis for this admission?: Yes Plan: Continue medications, but dementia is advanced and is the cause for the patient' s poor PO intake. I have discussed this with the patient's daughter. The patient is not eating, due to her advanced dementia and is will not improve. If a PEG is placed it will be for the rest of the patient's life. (4) Hypernatremia Is this a current diagnosis for this admission?: Yes Plan: Improving with IV fluids. Monitor electrolytes. The patient has poor/no PO intake due to advanced dementia. If IV's are removed she will again be hypernatremic and dehydrated. (5) Hypokalemia Is this a current diagnosis for this admission?: Yes Plan: Potassium supplemented. Will monitor electrolytes. (6) Sacral decubitus ulcer, stage IV Is this a current diagnosis for this admission?: Yes Plan: NGT tube has been placed to allow for tube feeds. This is necessary as the patient's PO intake is inadequate to sustain her health, or allow for healing of her decubitus ulcer. She will require PRG if she is to discharge to SNF. The patient also has a quiroz catheter and a rectal tube to allow for healing of this wound by preventing contamination of the wound with urine and stool. I have discussed all of these interventions with the patient's daughter and the complications of each. It is highly unlikely that the patient's wound will heal in any case, and she is quite likely to of complications from these interventions which afford the patient no quality of life. The patient's daughter stated that she would talk to her daughter who is a nurse. I explained comfort care and explained that this would be an alternative to the current course. I await a response from the family. (7) Sepsis Qualifiers: Sepsis type: sepsis due to unspecified organism Qualified Code(s): A41.9 - Sepsis, unspecified organism Is this a current diagnosis for this admission?: Yes Plan: Resolved. (8) Type 2 diabetes mellitus Qualifiers: Diabetes mellitus senior care insulin use: without popped corn oven attendant use Diabetes mellitus complication status: with circulatory complication Is this a current diagnosis for this admission?: Yes Plan: FSBS and SSI. Hold metformin. Diabetic diet and hypoglycemic protocol. Monitor glucoses. (9) ARF (acute renal failure) Qualifiers: Acute renal failure type: unspecified Is this a current diagnosis for this admission?: Yes Plan: Avoid nephrotoxic agents. Monitor. (10) Bedbound Is this a current diagnosis for this admission?: Yes Plan: Chronic. (11) UTI (urinary tract infection) due to urinary indwelling Quiroz catheter Qualifiers: Indwelling urinary catheter type: indwelling urethral catheter Encounter type: initial encounter Qualified Code(s): T83.511A - Infection and inflammatory reaction due to indwelling urethral catheter, initial encounter; N39.0 - Urinary tract infection, site not specified; N39.0 - Urinary tract infection, site not specified Is this a current diagnosis for this admission?: Yes Plan: IV rocephin pending specificities. The patient's urine culture has grown out E. coli. - Time Time Spent with patient: 25-34 minutes Medications reviewed and adjusted accordingly: Yes Anticipated discharge: [facility]
[2018-01-26] MEDS: CEFTRIAXONE SODIUM 1,000 MG in DEXTROSE 5%-WATER 50 ML IV SCH (22:56)
[2018-01-27] MEDS: NORMAL SALINE INJ/PF 0.9% 10 ML SDV IV PRN (06:01)
[2018-01-27] MEDS: INSULIN LISPRO 100 UNIT/ML 3 ML VIAL SUBCUT PRN ×3 (06:47→20:04)
[2018-01-27 07:01] LABS: ABSOLUTE LYMPHOCYTES (AUTO) 0.6 10^3/uL (0.5-4.7); ABSOLUTE MONOCYTES (AUTO) 0.7 10^3/uL (0.1-1.4); ABSOLUTE NEUT (AUTO) 7.4 10^3/uL (1.7-8.2); BASOPHILS % (AUTO) 0.4 % (0-2); EOSINOPHILS % (AUTO) 0.2 % (0-6); HEMATOCRIT 24.7 % (36.0-47.0); HEMOGLOBIN 8.5 g/dL (12.0-15.5); LYMPHOCYTES % (AUTO) 7.3 % (13-45); MEAN CORPUSCULAR HEMOGLOBIN 29.6 pg (27.0-33.4); MEAN CORPUSCULAR HGB CONC 34.4 g/dL (32.0-36.0); MEAN CORPUSCULAR VOLUME 86 fl (80-97); PLATELET COUNT 193 10^3/uL (150-450); RED BLOOD COUNT 2.87 10^6/uL (3.72-5.28); RED CELL DISTRIBUTION WIDTH 18.6 % (11.5-14.0); SEGMENTED NEUTROPHILS % (AUTO) 84.1 % (42-78); TOTAL CELLS COUNTED % (AUTO) 100 %; WHITE BLOOD COUNT 8.8 10^3/uL (4.0-10.5)
[2018-01-27 07:17] LABS: ANION GAP 8 (5-19); BLOOD UREA NITROGEN 26 mg/dL (7-20); CALCIUM 7.4 mg/dL (8.4-10.2); CARBON DIOXIDE 23 mmol/L (22-30); CHLORIDE 119 mmol/L (98-107); GLUCOSE 197 mg/dL (75-110); POTASSIUM 3.4 mmol/L (3.6-5.0); SODIUM 149.9 mmol/L (137-145)
[2018-01-27] MEDS: METOPROLOL TARTRATE 25 MG TABLET NG SCH ×2 (10:57→21:48)
[2018-01-27] MEDS: ENOXAPARIN SODIUM INJ 30 MG/0.3 ML DISP.SYRIN SUBCUT SCH (10:57)
[2018-01-27] MEDS: FAMOTIDINE INJ/PF 20 MG/2 ML SDV IV SCH (10:57)
[2018-01-27] MEDS: SENNOSIDES/DOCUSATE 8.6-50 MG 1 EACH TABLET NG SCH ×2 (10:58→18:43)
--- NOTE | 2018-01-27 14:20 | PDOC PROGRESS REPORT ---
Subjective Progress Note for:: 01/27/18 Subjective:: The patient is resting comfortably. No new complaints. She pulled out her NGT again last night. Again. Reason For Visit: SEPSIS,HYPERNATREMIC DEHYDRATION,HYPOKALEMIA Physical Exam Vital Signs: Temp Pulse Resp BP Pulse Ox 97.7 F 121 H 16 95/59 L 98 01/27/18 11:20 01/27/18 11:20 01/27/18 11:20 01/27/18 11:20 01/27/18 04:00 Intake & Output 01/26/18 01/27/18 01/28/18 06:59 06:59 06:59 Intake Total 1319 2224 75 Output Total 200 800 Balance 1119 1424 75 Weight 69.4 kg 73.4 kg General appearance: PRESENT: no acute distress, thin Respiratory exam: PRESENT: other - No increased work of breathing. No tactile fremitus. Cardiovascular exam: PRESENT: RRR, other - No lateral PMI. No thrills.. ABSENT : gallop, rubs, systolic murmur Pulses: PRESENT: other - Diminished distal pulses. GI/Abdominal exam: PRESENT: hypoactive bowel sounds, other - scaffoid. ABSENT: hernia, mass, organolmegaly, tenderness Extremities exam: ABSENT: clubbing, tenderness, +1 edema Neurological exam: PRESENT: other - Unable to evaluate due to the patient's inability to cooperate with exam. Skin exam: PRESENT: dry, intact, warm Results Laboratory Results: 01/27/18 06:10 01/27/18 06:10 01/27/18 01/27/18 06:10 06:10 WBC 8.8 RBC 2.87 L Hgb 8.5 L Hct 24.7 L MCV 86 MCH 29.6 MCHC 34.4 RDW 18.6 H Plt Count 193 Seg Neutrophils % 84.1 H Lymphocytes % 7.3 L Monocytes % 8.0 Eosinophils % 0.2 Basophils % 0.4 Absolute Neutrophils 7.4 Absolute Lymphocytes 0.6 Absolute Monocytes 0.7 Absolute Eosinophils 0.0 Absolute Basophils 0.0 Sodium 149.9 H Potassium 3.4 L Chloride 119 H Carbon Dioxide 23 Anion Gap 8 BUN 26 H Creatinine 1.00 Est GFR ( Amer) > 60 Est GFR (Non-Af Amer) 53 L Glucose 197 H Calcium 7.4 L 01/13/18 05:05 NT-Pro-B Natriuret Pep [id number] H Impressions: Chest X-Ray 01/24/18 04:44 IMPRESSION: 1. NG tube with tip and side-port in the stomach. KUB X-Ray 01/26/18 02:31 IMPRESSION: NG tube with tip and side-port in the stomach. 2010 [facility] All Rights Reserved Assessment & Plan - Diagnosis (1) Altered mental status Qualifiers: Altered mental status type: disorientation Qualified Code(s): R41.0 - Disorientation, unspecified Is this a current diagnosis for this admission?: Yes Plan: Likely chronic and due to advanced dementia. (2) Atrial fibrillation with RVR Is this a current diagnosis for this admission?: Yes Plan: Daytime metoprolol has been increased to 25 mg each am while continuing the pm dose of metoprolol at 12.5 mg due to her occasional low heart rates at night. If this is not successful, pacemaker can be considered, but the patient is non- ambulatory and I am not sure that the risk of the procedure would be worth the risk for this patient. Heart rate is improved. (3) Dementia Qualifiers: Dementia type: Alzheimer's disease Alzheimer's disease onset: unspecified onset Dementia behavioral disturbance: without behavioral disturbance Qualified Code(s): G30.9 - Alzheimer's disease, unspecified; F02.80 - Dementia in other diseases classified elsewhere without behavioral disturbance; F02.80 - Dementia in other diseases classified elsewhere without behavioral disturbance; F02.80 - Dementia in other diseases classified elsewhere without behavioral disturbance Is this a current diagnosis for this admission?: Yes Plan: Continue medications, but dementia is advanced and is the cause for the patient' s poor PO intake. I have discussed this with the patient's daughter. The patient is not eating, due to her advanced dementia and is will not improve. If a PEG is placed it will be for the rest of the patient's life. The patient's daughter was going to talk to her daughter whom she identifies as a nurse. I await their response. (4) Hypernatremia Is this a current diagnosis for this admission?: Yes Plan: Improving with IV fluids. Monitor electrolytes. The patient has poor/no PO intake due to advanced dementia. If IV's are removed she will again be hypernatremic and dehydrated. (5) Hypokalemia Is this a current diagnosis for this admission?: Yes Plan: Potassium supplemented. Will monitor electrolytes. (6) Sacral decubitus ulcer, stage IV Is this a current diagnosis for this admission?: Yes Plan: NGT tube has been placed to allow for tube feeds. This is necessary as the patient's PO intake is inadequate to sustain her health, or allow for healing of her decubitus ulcer. She will require PRG if she is to discharge to SNF. The patient also has a quiroz catheter and a rectal tube to allow for healing of this wound by preventing contamination of the wound with urine and stool. I have discussed all of these interventions with the patient's daughter and the complications of each. It is highly unlikely that the patient's wound will heal in any case, and she is quite likely to of complications from these interventions which afford the patient no quality of life. The patient's daughter stated that she would talk to her daughter who is a nurse. I explained comfort care and explained that this would be an alternative to the current course. I await a response from the family. (7) Sepsis Qualifiers: Sepsis type: sepsis due to unspecified organism Qualified Code(s): A41.9 - Sepsis, unspecified organism Is this a current diagnosis for this admission?: Yes Plan: Resolved. (8) Type 2 diabetes mellitus Qualifiers: Diabetes mellitus as400 analyst insulin use: without as400 analyst use Diabetes mellitus complication status: with circulatory complication Is this a current diagnosis for this admission?: Yes Plan: FSBS and SSI. Hold metformin. Diabetic diet and hypoglycemic protocol. Monitor glucoses. (9) ARF (acute renal failure) Qualifiers: Acute renal failure type: unspecified Is this a current diagnosis for this admission?: Yes Plan: Avoid nephrotoxic agents. Monitor. (10) Bedbound Is this a current diagnosis for this admission?: Yes Plan: Chronic. (11) UTI (urinary tract infection) due to urinary indwelling Quiroz catheter Qualifiers: Indwelling urinary catheter type: indwelling urethral catheter Encounter type: initial encounter Qualified Code(s): T83.511A - Infection and inflammatory reaction due to indwelling urethral catheter, initial encounter; N39.0 - Urinary tract infection, site not specified; N39.0 - Urinary tract infection, site not specified Is this a current diagnosis for this admission?: Yes Plan: IV rocephin pending specificities. The patient's urine culture has grown out E. coli. - Time Time Spent with patient: 25-34 minutes Medications reviewed and adjusted accordingly: Yes Anticipated discharge: SNF
[2018-01-27] MEDS: DEXTROSE 5%-1/2 NORMAL SALINE 1,000 ML IV PRN (18:44)
[2018-01-27] MEDS: CEFTRIAXONE SODIUM 1,000 MG in DEXTROSE 5%-WATER 50 ML IV SCH (21:48)
[2018-01-28] MEDS: INSULIN LISPRO 100 UNIT/ML 3 ML VIAL SUBCUT PRN (05:49)
[2018-01-28] MEDS: ENOXAPARIN SODIUM INJ 30 MG/0.3 ML DISP.SYRIN SUBCUT SCH (10:49)
[2018-01-28] MEDS: METOPROLOL TARTRATE 25 MG TABLET NG SCH (10:50)
[2018-01-28] MEDS: SENNOSIDES/DOCUSATE 8.6-50 MG 1 EACH TABLET NG SCH (10:50)
[2018-01-28] MEDS: FAMOTIDINE INJ/PF 20 MG/2 ML SDV IV SCH (10:50)
[2018-01-28] MEDS ORDERED: MORPHINE SULFATE 10 MG/ML INJ IV PRN (14:51)
[2018-01-28] MEDS ORDERED: LORAZEPAM INJ 2 MG/1 ML VIAL IV PRN (14:54)
[2018-01-28 16:14] VITALS: BP 114/66
--- NOTE | 2018-01-28 16:43 | PDOC PROGRESS REPORT ---
Subjective Progress Note for:: 01/28/18 Subjective:: The patient is awake, but non-verbal. She appears comfortable. Reason For Visit: SEPSIS,HYPERNATREMIC DEHYDRATION,HYPOKALEMIA Physical Exam Vital Signs: Temp Pulse Resp BP Pulse Ox 98.2 F 98 19 114/66 98 01/28/18 16:05 01/28/18 16:05 01/28/18 16:05 01/28/18 16:05 01/28/18 16:05 Intake & Output 01/27/18 01/28/18 01/29/18 06:59 06:59 06:59 Intake Total 2224 1633 Output Total 800 Balance 1424 1633 Weight 73.4 kg 73.1 kg General appearance: PRESENT: no acute distress Respiratory exam: PRESENT: other - No increased work of breathing. No wheezes, rales, or rhonchi. No tactile fremitus. Cardiovascular exam: PRESENT: RRR. ABSENT: gallop, rubs, systolic murmur Pulses: PRESENT: other - Diminished distal pulses. GI/Abdominal exam: PRESENT: normal bowel sounds, soft, other - Scaffoid. ABSENT : hernia, mass, organolmegaly, tenderness Extremities exam: ABSENT: calf tenderness, pedal edema, +1 edema Neurological exam: PRESENT: awake, other - Minimally verbal. Skin exam: PRESENT: dry, intact, warm, other - With exception for the stage IV sacral decubitus ulcer. Results Laboratory Results: 01/27/18 06:10 01/27/18 06:10 01/13/18 05:05 NT-Pro-B Natriuret Pep [id number] H Impressions: Chest X-Ray 01/24/18 04:44 IMPRESSION: 1. NG tube with tip and side-port in the stomach. KUB X-Ray 01/26/18 02:31 IMPRESSION: NG tube with tip and side-port in the stomach. 2010 [employer]- All Rights Reserved Assessment & Plan - Diagnosis (1) Altered mental status Qualifiers: Altered mental status type: disorientation Qualified Code(s): R41.0 - Disorientation, unspecified Is this a current diagnosis for this admission?: Yes Plan: Likely chronic and due to advanced dementia. (2) Atrial fibrillation with RVR Is this a current diagnosis for this admission?: Yes Plan: Daytime metoprolol has been increased to 25 mg each am while continuing the pm dose of metoprolol at 12.5 mg due to her occasional low heart rates at night. If this is not successful, pacemaker can be considered, but the patient is non- ambulatory and I am not sure that the risk of the procedure would be worth the risk for this patient. Heart rate is improved. (3) Dementia Qualifiers: Dementia type: Alzheimer's disease Alzheimer's disease onset: unspecified onset Dementia behavioral disturbance: without behavioral disturbance Qualified Code(s): G30.9 - Alzheimer's disease, unspecified; F02.80 - Dementia in other diseases classified elsewhere without behavioral disturbance; F02.80 - Dementia in other diseases classified elsewhere without behavioral disturbance; F02.80 - Dementia in other diseases classified elsewhere without behavioral disturbance Is this a current diagnosis for this admission?: Yes Plan: Continue medications, but dementia is advanced and is the cause for the patient' s poor PO intake. I have discussed this with the patient's daughter. The patient is not eating, due to her advanced dementia and is will not improve. If a PEG is placed it will be for the rest of the patient's life. The patient's daughter has discussed the situation with her daughter who is a nurse. They have decided to make the patient comfort care only and are working with social work to have her placed in a hospice house. (4) Hypernatremia Is this a current diagnosis for this admission?: Yes Plan: Improving with IV fluids. Monitor electrolytes. The patient has poor/no PO intake due to advanced dementia. Comfort care as per family wishes. (5) Hypokalemia Is this a current diagnosis for this admission?: Yes Plan: Comfort care as per family wishes. (6) Sacral decubitus ulcer, stage IV Is this a current diagnosis for this admission?: Yes Plan: The family has opted for comfort care. The quiroz catheter, rectal tube, and NGT will be removed. (7) Sepsis Qualifiers: Sepsis type: sepsis due to unspecified organism Qualified Code(s): A41.9 - Sepsis, unspecified organism Is this a current diagnosis for this admission?: Yes Plan: Resolved. 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 (9) ARF (acute renal failure) Qualifiers: Acute renal failure type: unspecified Is this a current diagnosis for this admission?: Yes Plan: Comfort care as per family wishes. (10) Bedbound Is this a current diagnosis for this admission?: Yes Plan: Chronic.Comfort care as per family wishes. (11) UTI (urinary tract infection) due to urinary indwelling Quiroz catheter Qualifiers: Indwelling urinary catheter type: indwelling urethral catheter Encounter type: initial encounter Qualified Code(s): T83.511A - Infection and inflammatory reaction due to indwelling urethral catheter, initial encounter; N39.0 - Urinary tract infection, site not specified; N39.0 - Urinary tract infection, site not specified Is this a current diagnosis for this admission?: Yes Plan: Comfort care as per family wishes. - Time Time Spent with patient: 35 or more minutes Medications reviewed and adjusted accordingly: Yes Anticipated discharge: Hospice
--- NOTE | 2018-01-29 13:12 | PDOC PROGRESS REPORT ---
Subjective Progress Note for:: 01/29/18 Subjective:: The patient is awake, but non-verbal. She appears comfortable. Reason For Visit: SEPSIS,HYPERNATREMIC DEHYDRATION,HYPOKALEMIA Physical Exam Vital Signs: Temp Pulse Resp BP Pulse Ox 98.2 F 98 19 114/66 98 01/28/18 16:05 01/28/18 16:05 01/28/18 16:05 01/28/18 16:05 01/28/18 16:05 Intake & Output 01/28/18 01/29/18 01/30/18 06:59 06:59 06:59 Intake Total 1633 700 Output Total 350 Balance 1633 350 Weight 73.1 kg 72.3 kg General appearance: PRESENT: no acute distress, other - cachectic Respiratory exam: PRESENT: other - No increased work of breathing.. ABSENT: rales, rhonchi, wheezes Cardiovascular exam: PRESENT: RRR, other - No lateral PMI. No thrills.. ABSENT : gallop, rubs, systolic murmur Pulses: PRESENT: other - Diminished distal pulses. Extremities exam: ABSENT: clubbing, tenderness, +1 edema Neurological exam: PRESENT: other - The patient is demented and not communicative. Skin exam: PRESENT: dry, intact, warm Results Laboratory Results: 01/27/18 06:10 01/27/18 06:10 01/13/18 05:05 NT-Pro-B Natriuret Pep [id number] H Impressions: Chest X-Ray 01/24/18 04:44 IMPRESSION: 1. NG tube with tip and side-port in the stomach. KUB X-Ray 01/26/18 02:31 IMPRESSION: NG tube with tip and side-port in the stomach. 2010 [employer]- All Rights Reserved Assessment & Plan - Diagnosis (1) Altered mental status Qualifiers: Altered mental status type: disorientation Qualified Code(s): R41.0 - Disorientation, unspecified Is this a current diagnosis for this admission?: Yes Plan: Likely chronic and due to advanced dementia. (2) Atrial fibrillation with RVR Is this a current diagnosis for this admission?: Yes Plan: Comfort care only. (3) Dementia Qualifiers: Dementia type: Alzheimer's disease Alzheimer's disease onset: unspecified onset Dementia behavioral disturbance: without behavioral disturbance Qualified Code(s): G30.9 - Alzheimer's disease, unspecified; F02.80 - Dementia in other diseases classified elsewhere without behavioral disturbance; F02.80 - Dementia in other diseases classified elsewhere without behavioral disturbance; F02.80 - Dementia in other diseases classified elsewhere without behavioral disturbance Is this a current diagnosis for this admission?: Yes Plan: Comfort care only (4) Hypernatremia Is this a current diagnosis for this admission?: Yes Plan: Comfort care as per family wishes. (5) Hypokalemia Is this a current diagnosis for this admission?: Yes Plan: Comfort care as per family wishes. (6) Sacral decubitus ulcer, stage IV Is this a current diagnosis for this admission?: Yes Plan: Comfort care only. (7) Sepsis Qualifiers: Sepsis type: sepsis due to unspecified organism Qualified Code(s): A41.9 - Sepsis, unspecified organism Is this a current diagnosis for this admission?: Yes Plan: Resolved. (8) Type 2 diabetes mellitus Qualifiers: Diabetes mellitus fdc insulin use: without technician terminal and repeater use Diabetes mellitus complication status: with circulatory complication Is this a current diagnosis for this admission?: Yes Plan: Comfort care as per family wishes. (9) ARF (acute renal failure) Qualifiers: Acute renal failure type: unspecified Is this a current diagnosis for this admission?: Yes Plan: Comfort care as per family wishes. (10) Bedbound Is this a current diagnosis for this admission?: Yes (11) UTI (urinary tract infection) due to urinary indwelling Christopher catheter Qualifiers: Indwelling urinary catheter type: indwelling urethral catheter Encounter type: initial encounter Qualified Code(s): T83.511A - Infection and inflammatory reaction due to indwelling urethral catheter, initial encounter; N39.0 - Urinary tract infection, site not specified; N39.0 - Urinary tract infection, site not specified Is this a current diagnosis for this admission?: Yes Plan: Comfort care as per family wishes. - Time Time Spent with patient: 25-34 minutes Medications reviewed and adjusted accordingly: Yes Anticipated discharge: Hospice Within: when bed available
--- NOTE | 2018-01-29 18:44 | PDOC TRANSFER SUMMARY ---
General - Admit/Disc Date/PCP Admission Date/Primary Care Provider: 01/10/18 15:54 BITA MEANS Discharge Date: 01/29/18 - Discharge Diagnosis (1) Altered mental status Is this a current diagnosis for this admission?: Yes (2) Atrial fibrillation with RVR Is this a current diagnosis for this admission?: Yes (3) Dementia Is this a current diagnosis for this admission?: Yes (4) Hypernatremia Is this a current diagnosis for this admission?: Yes (5) Hypokalemia Is this a current diagnosis for this admission?: Yes (6) Sacral decubitus ulcer, stage IV Is this a current diagnosis for this admission?: Yes (7) Sepsis Is this a current diagnosis for this admission?: Yes (8) Type 2 diabetes mellitus Is this a current diagnosis for this admission?: Yes (9) ARF (acute renal failure) Is this a current diagnosis for this admission?: Yes (10) Bedbound Is this a current diagnosis for this admission?: Yes (11) UTI (urinary tract infection) due to urinary indwelling Quiroz catheter Is this a current diagnosis for this admission?: Yes - Additional Information Resuscitation Status: Do Not Resuscitate Home Medications: Cyanocobalamin (Vitamin B-12) [Vitamin B12] 2,500 mcg PO DAILY 12/19/17 Docusate Sodium [Colace 100 mg Capsule] 100 mg PO BID 12/19/17 Folic Acid [Folvite 1 mg Tablet] 1 mg PO DAILY 12/19/17 Glipizide [Glucotrol 5 mg Tablet] 2.5 mg PO DAILY 12/19/17 Insulin Aspart [Novolog Flexpen] 0 unit SQ .SLIDING SCALE 12/19/17 Mirtazapine [Remeron 15 mg Tablet] 15 mg PO QHS 12/19/17 Omeprazole 20 mg PO DAILY 12/19/17 History of Present Illness Admission Date/PCP: 01/10/18 15:54 BITA MEANS History of Present Illness: JESSICA [address] is a 82 year old female who was admitted with a stage IV decubitus ulcer, advanced dementia, severe protein calorie malnutrition, and dehydration. She has virtually no oral input. She was given wound care, IV fluids, a rectal tube and a quiroz, and an NGT. The patient has advanced dementia. For her the poor PO intake is not something that will change, and it is impossible that she will ever heal her stage IV sacral decubitus ulcer. She continually pulled out her NGT and developed a UTI due to the chronic indwelling quiroz. The patient's family made her a DNR shortly after admission, and made her comfort care yesterday. The patient has been accepted to inpatient hospice. She will be transferred there today. Hospital Course Hospital Course: JESSICA ST[address] is a 82 year old female who was admitted with a stage IV decubitus ulcer, advanced dementia, severe protein calorie malnutrition, and dehydration. She has virtually no oral input. She was given wound care, IV fluids, a rectal tube and a quiroz, and an NGT. The patient has advanced dementia. For her the poor PO intake is not something that will change, and it is impossible that she will ever heal her stage IV sacral decubitus ulcer. She continually pulled out her NGT and developed a UTI due to the chronic indwelling quiroz. The patient's family made her a DNR shortly after admission, and made her comfort care yesterday. The patient has been accepted to inpatient hospice. She will be transferred there today. Physical Exam Vital Signs: Temp Pulse Resp BP Pulse Ox 98.2 F 98 19 114/66 98 01/28/18 16:05 01/28/18 16:05 01/28/18 16:05 01/28/18 16:05 01/28/18 16:05 Intake & Output 01/28/18 01/29/18 01/30/18 06:59 06:59 06:59 Intake Total 1633 700 Output Total 350 Balance 1633 350 Weight 73.1 kg 72.3 kg Additional comments: Please see the progress note dated 01/29/2018 for physical exam on the day of discharge. Results Laboratory Results: 01/27/18 06:10 01/27/18 06:10 01/13/18 05:05 NT-Pro-B Natriuret Pep [id number] H Impressions: Chest X-Ray 01/24/18 04:44 IMPRESSION: 1. NG tube with tip and side-port in the stomach. KUB X-Ray 01/26/18 02:31 IMPRESSION: NG tube with tip and side-port in the stomach. 2010 [employer]- All Rights Reserved Transfer Plan - Disposition Transfer Plan: Discharge to inpatient hospice. - Time Spent with Patient Time spent with patient: Greater than 30 Minutes Qualifiers - * PATIENT BEING DISCHARGED WITH ANY OF THE FOLLOWING DIAGNOSIS: No
== END 2018-01-29 19:45 | disposition hospice, inpatient (51) | DRG 871 ==
LOC: ER 12:40 → EH 15:54 → ICU 18:08 → 4S 01-16 18:51
PROVIDERS: ADMIT Internal Medicine; ATTEND Internal Medicine
PROC: 3E0F73Z Introduction of Anti-inflammatory into Respiratory Tract, Via Natural or Artificial Opening (ICD-10-PCS; 2018-01-10)
PROC: 02H633Z Insertion of Infusion Device into Right Atrium, Percutaneous Approach (ICD-10-PCS; 2018-01-11)
PROC: 0D9670Z Drainage of Stomach with Drainage Device, Via Natural or Artificial Opening (ICD-10-PCS; principal; 2018-01-18)
DX: A41.9 Sepsis, unspecified organism (principal); L89.154 Pressure ulcer of sacral region, stage 4; T83.511A Infection and inflammatory reaction due to indwelling urethral catheter, initial encounter; N39.0 Urinary tract infection, site not specified; E43 Unspecified severe protein-calorie malnutrition; E87.0 Hyperosmolality and hypernatremia; N17.9 Acute kidney failure, unspecified; Z66 Do not resuscitate; E86.0 Dehydration; E87.6 Hypokalemia; I48.91 Unspecified atrial fibrillation; E11.9 Type 2 diabetes mellitus without complications; M19.90 Unspecified osteoarthritis, unspecified site; Z68.34 Body mass index [BMI] 34.0-34.9, adult; Z78.1 Physical restraint status; Z74.01 Bed confinement status; Z51.5 Encounter for palliative care; F32.9 Major depressive disorder, single episode, unspecified; E83.42 Hypomagnesemia; D63.8 Anemia in other chronic diseases classified elsewhere; G30.9 Alzheimer's disease, unspecified; F02.80 Dementia in other diseases classified elsewhere, unspecified severity, without behavioral disturbance, psychotic disturbance, mood disturbance, and anxiety; B96.20 Unspecified Escherichia coli [E. coli] as the cause of diseases classified elsewhere; Z90.710 Acquired absence of both cervix and uterus; Z79.899 Other long term (current) drug therapy; Z90.5 Acquired absence of kidney
CPT/HCPCS: 36415; 51702; 71045; 74018; 80048; 80053; 80076; 80202; 81001; 82272; 82330; 82803; 82962; 83605; 83735; 83880; 84100; 85025; 85027; 85610; 87040; 87070; 87075; 87077; 87086; 87088; 87186; 87205; 87493; 93005; 93010; 96361; 96374; 96375; 99291; C1751; G8996-GN; G8997-GN; G8998-GN; J0610; J0696; J1642; J1650; J1815; J1940; J2270; J2370; J2543; J3370; J3475; J3480; J3490; J7030; J7040; J7060; J7120; S0028